=== PATIENT | female | born 1945 | race Hispanic/Latino ===

== ENCOUNTER → 2017-11-12 | Day surgery (SDC) | payer MEDICARE ==
[2017-11-11 12:20] LABS: BASOPHILS % 0.5 % (0.0-1.0); EOSINOPHILS # (AUTO) 0.2 (0.0-0.4); EOSINOPHILS % 2.3 % (0.0-6.0); HEMOGLOBIN 11.8 g/dL (12.0-16.0); LYMPHOCYTES # (AUTO) 2.5 (1.0-3.2); LYMPHOCYTES % 32.3 % (18.0-39.1); MEAN CORPUSCULAR HEMOGLOBIN 34.4 pg (28-32); MEAN CORPUSCULAR HGB CONC 33.7 g/dL (31-35); MONOCYTES # (AUTO) 0.7 (0.2-0.8); MONOCYTES % 8.8 % (4.4-11.3); NEUTROPHILS # (AUTO) 4.3 (2.1-6.9); NEUTROPHILS % 55.8 % (38.7-80.0); PLATELET COUNT 210 x10e3/uL (140-360); RED BLOOD COUNT 3.43 x10e6/uL (3.6-5.1); RED CELL DISTRIBUTION WIDTH 12.4 % (11.7-14.4)
--- NOTE | 2017-11-11 12:46 | Diagnostic Imaging Report ---
PROCEDURE: Frontal and lateral views of the chest. COMPARISON: Chest xray 08/24/2010. INDICATIONS: pre-op FINDINGS: Lines/tubes: None. Lungs: The lungs are well inflated and clear. There is no evidence of pneumonia or pulmonary edema. Pleura: There is no pleural effusion or pneumothorax. Atherosclerotic calcifications in aorta. Heart and mediastinum: Anterior cervical fusion plate. The heart and the mediastinum are normal. Bones: No acute bony abnormality. IMPRESSION: No acute cardiopulmonary disease. Dictated by: Sonny Palomo M.D. on 11/11/2017 at 12:45 Electronically approved by: Sonny Palomo M.D. on 11/11/2017 at 12:45
[~2017-11-12] MED LIST: ACETAMINOPHEN 1000 MG/100 ML IV ONE; AMITRIPTYLINE H10 MG PO; BACTRIM DS TAB1 EACH PO; BUDESONIDE EC3 MG PO; BUPIVACAINE HCL 0.5% 10ML MPF VIAL INJ ONE; CEFAZOLIN SOD 1 GM VIAL ONE; CIPRO500 MG PO; CYMBALTA20 MG PO; DEXAMETHASONE SOD PHOS INJ 4 MG/ML VIAL ONE; FOLIC ACID1 MG PO; GABAPENTIN300 MG PO; HYDROXYCHLOROQ200 MG PO; IBUPROFEN PO; IBUPROFEN200 MG PO; LIDOCAINE HCL 2% LOCAL INJ 5 ML SDV VIAL INJ ONE; METRONIDAZOLE500 MG PO; MUCINEX PO; NEVANAC3 ML OP; OMEPRAZOLE40 MG; OMEPRAZOLE40 MG PO; ONDANSETRON HCL INJ 2 MG/ML VIAL ONE; OXYBUTYNIN CHLOR5 MG PO; PENTOXIFYLLINE400 MG PO; PREDNISOLO15 MG/5 ML PO; PROPOFOL IV EMULSION 10 MG/ML 20 ML VIAL ONE; SEVOFLURANE INHAL SOLN 250 ML PEN BTL ONE; TRAMADOL-ACETAMI1 EA PO
--- OUTSIDE RECORDS SUMMARY | 2017-11-12 07:19 | XMS REPORT ---
Author Author [facility] Address Unknown Phone Unavailable Care Team Providers Care Transportation Agent Name Role Phone WILBER RAMOS Unavailable Unavailable HAMPEL, CHASE Unavailable Unavailable Problems This patient has no known problems. Allergies, Adverse Reactions, Alerts This patient has no known allergies or adverse reactions. Medications This patient has no known medications. Results Test Description Test Time Test Comments Text Results Atomic Results Result Comments CHEST 2 VIEWS [place] [address] Patient Name: RONAK BAILON MR #: [id number] : 1945 Age/Sex: 72/F Req # : [id number] Adm Physician: Ordered by: WILBER RAMOS MD Report #: [id number] Location: OR Room/Bed: Procedure: [id number] DX/CHEST 2 VIEWS Exam Date: 11/11/17 Exam Time: 1215 REPORT STATUS: Signed PROCEDURE: Frontal and lateral views of the chest. COMPARISON: Chest xray 08/24/2010. INDICATIONS: pre-op FINDINGS: Lines/tubes: None. Lungs: The lungs are well inflated and clear. There is no evidence of pneumonia or pulmonary edema. Pleura: There is no pleural effusion or pneumothorax. Atherosclerotic calcifications in aorta. Heart and mediastinum: Anterior cervical fusion plate. The heart and the mediastinum are normal. Bones: No acute bony abnormality. IMPRESSION: No acute cardiopulmonary disease. Dictated by: Mercedez Palomo M.D. on 11/11/2017 at 12:45 Electronically approved by: Mercedez Palomo M.D. on 11/11/2017 at 12:45 Dictated By: MERCEDEZ PALOMO MD 44 Transcribed By: CHASE on 11/11/17 1245 COPY TO: WILBER RAMOS MD RENAL SCAN W/LASIX [place] [address] Patient Name: RONAK BAILON MR #: [id number] : 1945 Age/Sex: 71/F Req #: [id number] Adm Physician: Ordered by: CHASE GIBBONS MD Report #: [id number] Location: [place] Room/Bed: Procedure: [id number] NM/RENAL SCAN W/LASIX Exam Date: 06/14/17 Exam Time: 1555 REPORT STATUS: Signed Renal Scan with Lasix [place] Clinical information: 71 F with interstitial cystitis Technique: Following intravenous administration of 9.7 mCi of Tc-99m MAG3, dynamic images of the kidneys in the posterior projection were obtained through 40 minutes. Lasix 40 mg was administered intravenously at 10 minutes post injection of the tracer. Report: Left kidney: Perfusion of the left kidney is prompt. The kidney has a reniform shape although is decreased in size. The renal cortex is not thinned. Extraction of tracer from the blood pool is decreased. Clearance of tracer from the renal parenchyma begins promptly but is not complete by the end of the study. The pelvicalyceal system is not dilated. Physiologic pooling of tracer within the pelvicalyceal system is seen. Drainage of tracer from the pelvicalyceal system is prompt and adequate prior to administration of Lasix. No significant stasis of tracer is seen within the left ureter. Right kidney: Perfusion of the right kidney is prompt. The kidney has a reniform shape although is decreased in size. The renal cortex is not thinned. Extraction of tracer from the blood pool is decreased. Clearance of tracer from the renal parenchyma begins promptly but is not complete by the end of the study. The pelvicalyceal system is not dilated. Physiologic pooling of tracer within the pelvicalyceal system is seen. Drainage of tracer from the pelvicalyceal system is prompt and adequate prior to administration of Lasix. No significant stasis of tracer is seen within the right ureter. Differential renal function: The left kidney contributes 51% of total renal function and the right kidney contributes 49% (normal 43-57%). Impression: Scan evidence of medical renal disease in both kidneys although may be normal for patient's age. No hydronephrosis or physiologically significant obstruction of either kidney. The differential renal function is preserved. Signed by: Dr. Narayan Holt M.D. on 06/14/2017 8:45 PM Dictated By: NARAYAN HOLT MD 44 Transcribed By: ABHISHEK on 06/14/172044 COPY TO: CHASE GIBBONS MD CT ABDOMEN/PELVIS WOW [place] [address] Patient Name: RONAK BAILON MR #: [id number] : 1945 Age/Sex: 71/F Req #: [id number] Adm Physician: Ordered by: CHASE GIBBONS MD Report #: [id number] Location: CT Room/Bed: Procedure: CT/CT ABDOMEN/PELVIS WOW Exam Date: 04/23/17 Exam Time: 929 REPORT STATUS: Signed PROCEDURE: CT ABDOMEN T PELVIS W/WO CONTRAST TECHNIQUE: The abdomen and pelvis were scanned utilizing a multidetector helical scanner from the diaphragm to the lesser trochanter before and after the IV administration of 100 cc Isovue 370 and the oral administration of water. Imaging was performed per CT urogram protocol. Coronal and sagittal multiplanar reformations were obtained. COMPARISON: CT abdomen and pelvis with contrast 05/09/2016. INDICATIONS: GROSS HEMATURIA FINDINGS: LOWER THORAX: Mild bilateral lower lobe bronchiectasis, likely postinfectious.. HEPATOBILIARY: No focal hepatic lesions. No biliary ductal dilatation. SPLEEN: No splenomegaly. PANCREAS: No focal masses or ductal dilatation. ADRENALS: No adrenal nodules. KIDNEYS/URETERS: Subcentimeter hypoattenuating lesion in the upper pole of the right kidney, too small to further characterize but likely represent a small cyst. Bilateral extrarenal pelves. Precontrast images show no calculi within the upper collecting systems, ureters, or urinary bladder. Additional subcentimeter hypoattenuating lesions within the lower poles of both kidneys, also too small to further characterize though likely to represent small cysts. Excretory phase images show no filling defects within the upper collecting systems, ureters, or urinary bladder. PELVIC ORGANS/BLADDER: The uterus is neutral in position and appears normal. 1.8 cm left ovarian cystic structure has average internal attenuation 19 Hounsfield units. No additional adnexal mass. PERITONEUM / RETROPERITONEUM : No free air or fluid. LYMPH NODES: No pelvic sidewall, retroperitoneal, or mesenteric lymphadenopathy. VESSELS: There is atherosclerotic calcification of the abdominal aorta, major branch vessels, and iliac arterial systems without aneurysmal dilatation. The portal vein, splenic vein , and central superior mesenteric vein are patent. GI TRACT: Radiopaque suture material along the lower rectum. The large bowel otherwise shows no evidence of distention or wall thickening. The appendix is not definitively identified. No right lower quadrant inflammatory change. The stomach is collapsed and poorly evaluated. There is no small bowel dilatation to suggest obstruction. BONES AND SOFT TISSUES: Multiple dystrophic soft tissue calcifications within the subcutaneous fat of the gluteal regions. No osseous destructive lesions. Partial fusion of the left sacroiliac joint. Advanced multilevel degenerative disc disease of the lumbar spine. IMPRESSION: No urolithiasis or filling defects within the upper collecting systems, ureters, or urinary bladder to explain the reported history of hematuria. Subcentimeter hypoattenuating bilateral renal lesions are too small to further characterize though likely represent small cysts. Left ovarian cystic lesion should be further evaluated by pelvic ultrasound in a patient of this age. Atherosclerotic vascular disease. Dictated by: Wilber Arango M.D. on 04/23/2017 at 13:58 Electronically approved by: Wilber Arango M.D. on 04/23/2017 at 13:58 Dictated By: WILBER ARANGO MD [id number] Transcribed By: CHASE on 04/23/17 1358 COPY TO: CHASE GIBBONS MD
--- NOTE | 2017-11-12 08:24 | Operative Report ---
DATE OF PROCEDURE: November 12, 2017 NEURO OPHTHALMOLOGIST: James Sargent PA-C The patient was brought to the operating room for induction of anesthesia. Throughout this case, my PA's assistance was necessary for retraction of soft tissue and positioning of the extremity. This allows for efficient and technically successful execution of the operation and is considered medically necessary. PREOPERATIVE DIAGNOSIS: Right 3rd trigger finger. POSTOPERATIVE DIAGNOSIS: Right 3rd trigger finger. PROCEDURE: Release of right 3rd trigger finger. INDICATIONS: The patient is a 72-year-old lady who complains of severe discomfort and snapping in her right 3rd finger. She has been treated by an outside physicians with conservative management. She presented to my office wanting to schedule definitive intervention. The risks and benefits of a trigger finger release have been explained. She states she understands and wishes to proceed. DESCRIPTION OF PROCEDURE: The patient was brought to the operating room and placed under a light general anesthetic. Her right upper extremity was prepped and draped in a sterile manner. A preoperative time out was performed. The extremity was exsanguinated and a proximal tourniquet was briefly inflated to 250 mmHg. A transverse incision was made in line with the distal palmar crease. The A1 jennifer was carefully exposed and released completely. The tendon was retracted from the wound and noted to have no further evidence of stenosing tenosynovitis. The wound was irrigated and closed with interrupted nylon stitches. A sterile bandage was applied. The patient was extubated and transported to the recovery room in stable condition. There was no blood loss. All needle and sponge counts were correct. Job#: [id number] SARAH
== END | disposition home or self-care (01) ==
LOC: OR 07:16
PROVIDERS: ATTEND Specialist
DX: M65.331 Trigger finger, right middle finger (principal); Z01.810 Encounter for preprocedural cardiovascular examination; Z01.812 Encounter for preprocedural laboratory examination; Z01.818 Encounter for other preprocedural examination
CPT/HCPCS: 26055; 36415; 71046; 85025; 93005; J0690; J1100; J2001; J2405

== ENCOUNTER → 2019-05-28 | Day surgery (SDC) | payer MEDICARE ==
[2019-05-25 13:50] LABS: BASOPHILS % 0.6 % (0.0-1.0); EOSINOPHILS # (AUTO) 0.2 (0.0-0.4); EOSINOPHILS % 3.2 % (0.0-6.0); HEMATOCRIT 34.7 % (34.2-44.1); HEMOGLOBIN 11.5 g/dL (12.0-16.0); LYMPHOCYTES # (AUTO) 1.8 (1.0-3.2); LYMPHOCYTES % 28.2 % (18.0-39.1); MEAN CORPUSCULAR HEMOGLOBIN 33.3 pg (28-32); MEAN CORPUSCULAR HGB CONC 33.1 g/dL (31-35); MEAN CORPUSCULAR VOLUME 100.6 fL (81-99); MONOCYTES # (AUTO) 0.7 (0.2-0.8); NEUTROPHILS # (AUTO) 3.8 (2.1-6.9); NEUTROPHILS % 57.7 % (38.7-80.0); PLATELET COUNT 236 x10e3/uL (140-360); RED BLOOD COUNT 3.45 x10e6/uL (3.6-5.1)
[~2019-05-28] MED LIST changes: -ACETAMINOPHEN 1000 MG/100 ML IV ONE; -BUPIVACAINE HCL 0.5% 10ML MPF VIAL INJ ONE; -CEFAZOLIN SOD 1 GM VIAL ONE; +CELEBREX100 MG PO; +CYMBALTA30 MG PO; -DEXAMETHASONE SOD PHOS INJ 4 MG/ML VIAL ONE; +LEFLUNOMIDE10 MG PO; -LIDOCAINE HCL 2% LOCAL INJ 5 ML SDV VIAL INJ ONE; +MULTIVITAMINS1 EAC7 PO; -ONDANSETRON HCL INJ 2 MG/ML VIAL ONE; -PROPOFOL IV EMULSION 10 MG/ML 20 ML VIAL ONE; +PROPOFOL IV EMULSION 10 MG/ML 50 ML VIAL ONE; -SEVOFLURANE INHAL SOLN 250 ML PEN BTL ONE; +VITAMIN B12 PO; +[UNRECOGNIZED DRUG - OTHER] PO
[2019-05-28 07:55] VITALS: BP 134/66
== END | disposition home or self-care (01) ==
LOC: OR 05:12
PROVIDERS: ATTEND Internal Medicine Gastroenterology
DX: Z12.11 Encounter for screening for malignant neoplasm of colon (principal); K64.8 Other hemorrhoids; K21.9 Gastro-esophageal reflux disease without esophagitis; R06.02 Shortness of breath; R00.1 Bradycardia, unspecified; F32.9 Major depressive disorder, single episode, unspecified; Z01.810 Encounter for preprocedural cardiovascular examination; Z01.812 Encounter for preprocedural laboratory examination
CPT/HCPCS: 36415; 45380; 85025; 88305; 93005; J2704; 45378

== ENCOUNTER → 2019-10-12 | Outpatient (CLI) | payer MEDICARE ==
[~2019-10-12] MED LIST changes: -PROPOFOL IV EMULSION 10 MG/ML 50 ML VIAL ONE
== END ==
LOC: MAMMO 14:39
PROVIDERS: ATTEND Internal Medicine
DX: Z12.31 Encounter for screening mammogram for malignant neoplasm of breast (principal)
CPT/HCPCS: 77067

== ENCOUNTER 2020-05-05 09:58 | Inpatient (IN) | payer MEDICARE ==
[~2020-05-05] VITALS: Ht 154.9 cm; Wt 55.8 kg
[2020-05-05] MEDS ORDERED: AZITHROMYCIN 500MG/NS 250 ML 250 ML IV STA (10:10)
[2020-05-05] MEDS ORDERED: CEFTRIAXONE SOD 1 GM/NS 50 ML 50 ML IV ONE (10:15)
--- NOTE | 2020-05-05 10:25 | Emergency Department Note ---
History of Present Illnes History of Present Illness Chief Complaint: General Medicine Complaints History of Present Illness This is a 74 year old female arrived to the ED with complaints of dizziness weakness generalized malaise over the last week. Chief Complaint Comment PATIENT IN FROM HOME WITH COMPLAINTS OF DIZZINESS AND WEAKNESS STARTING LAST WEEK; PATIENT STATES THAT SHE SAW HER PRIMARY CARE PHYSICIAN LAST WEEK AND WAS GIVEN ABX FOR A UTI. PATIENT ALSO WITH A DENTAL INFECTION THAT SHE STARTED ON ANTIBIOTICS FOR 3 DAYS AGO. PATIENT APEARS IN NO DISTRESS, DENIES PAIN AT THIS TIME Historian: Patient Arrival Mode: Car Onset (how long ago): day(s) Duration (how long): day(s) Timing of current episode: constant Progression: worsening Chronicity: new Context: Reports recent illness Past Medical/Family History Physician Review I have reviewed the patient's past medical and family history. Any updates have been documented here. Past Medical History Recent Fever: No Clinical Suspicion of Infectio: No New/Unexplained Change in Ment: No Past Medical History: None Other Surgery: CARPAL TUNNEL REPAIR ON LT HAND HEMMOROID REMOVAL Other Last Tetanus: UTD Review of Systems Review of Systems Constitutional: Reports as per HPI, Reports malaise, Reports weakness EENTM: Reports no symptoms Cardiovascular: Reports no symptoms Respiratory: Reports no symptoms Gastrointestinal: Reports no symptoms Genitourinary: Reports no symptoms Musculoskeletal: Reports as per HPI Integumentary: Reports no symptoms Neurological: Reports no symptoms Psychological: Reports no symptoms Endocrine: Reports no symptoms Hematological/Lymphatic: Reports no symptoms Physical Exam Related Data Allergies: Coded Allergies: No Known Drug Allergies (Verified Allergy, Unknown, 08/31/15) Triage Vital Signs Vital Signs Date Time Temp Pulse Resp B/P (MAP) Pulse Ox O2 Delivery O2 Flow Rate FiO2 05/05/20 10:06 98.8 60 20 105/65 100 Room Air Vital signs reviewed: Yes Physical Exam CONSTITUTIONAL Constitutional: Present well-developed, Present well-nourished HENT HENT: Present normocephalic, Present atraumatic, Present oropharynx clear/moist, Present nose normal HENT L/R: Present left ext ear normal, Present right ext ear normal EYES Eyes: Reports PERRL, Reports conjunctivae normal NECK Neck: Present ROM normal PULMONARY Pulmonary: Present effort normal, Present breath sounds normal CARDIOVASCULAR Cardiovascular: Present regular rhythm, Present heart sounds normal, Present capillary refill normal, Present normal rate GASTROINTESTINAL Abdominal: Present soft, Present nontender, Present bowel sounds normal GENITOURINARY Genitourinary: Present exam deferred SKIN Skin: Present warm, Present dry MUSCULOSKELETAL Musculoskeletal: Present ROM normal NEUROLOGICAL Neurological: Present alert, Present oriented x 3, Present no gross motor or sensory deficits PSYCHOLOGICAL Psychological: Present mood/affect normal, Present judgement normal Results Laboratory Lab results reviewed: Yes Imaging Imaging results reviewed: Yes Assessment & Plan Medical Decision Making MDM 74-year-old female arrived to the ED generalized malaise weakness and dizziness. Patient admitted to the [facility] for further work-up and management. Assessment & Plan Final Impression: (1) Weakness (2) Chest pain Depart Disposition: ADMITTED Last Vital Signs Date Time Temp Pulse Resp B/P (MAP) Pulse Ox O2 Delivery O2 Flow Rate FiO2 05/05/20 10:06 98.8 60 20 105/65 100 Room Air Home Meds Reported Medications Multivitamin (MULTI-VITAMIN DAILY) 1 Each Tablet, 1 TAB PO DAILY 05/05/20 Acetaminophen/Codeine* (TYLENOL # 3*) 1 Ea Tab, 1 TAB PO q6-8hrs PRN for MODERATE PAIN (4-6) 05/05/20 Cefuroxime Axetil (CEFUROXIME) 500 Mg Tablet, 1 TAB PO BID 05/05/20 Amoxicillin (AMOXICILLIN) 250 Mg Capsule, 500 MG PO Q8H for dental work, #30 CAP 05/05/20 Tizanidine Hcl (TIZANIDINE HCL) 4 Mg Tablet, 4 MG PO HS, TAB 05/05/20 Discontinued Reported Medications [Peppermint Extract] No Conflict Check, 1 CAP PO DAILY 05/25/19 Multivitamin (MULTIVITAMINS) 1 Each Capsule, 1 CAP PO DAILY 05/25/19 [Vitamin B12] No Conflict Check, 500 MCG PO DAILY 05/25/19 Omeprazole (OMEPRAZOLE) 40 Mg Capsule.dr, 40 MG PO DAILY 05/25/19 Celecoxib* (CELEBREX*) 100 Mg Capsule, 200 MG PO Q12H, #30 CAP 05/25/19 Leflunomide (LEFLUNOMIDE) 10 Mg Tablet, 10 MG PO DAILY 05/25/19 Duloxetine Hcl (CYMBALTA) 30 Mg Capsule.dr, 30 MG PO DAILY, #30 CAP 05/25/19 Medications in the ED Ceftriaxone Sodium 50 ml @ 100 mls/hr ONCE ONCE IV ; Start 05/05/20 at 10:15; Stop 05/05/20 at 10:44 Azithromycin 250 ml @ 200 mls/hr NOW STAT IV ; Start 05/05/20 at 10:10; Stop 05/05/20 at 11:24 KOKI LEÓN, May 05, 2020 10:25
--- NOTE | 2020-05-05 11:03 | Diagnostic Imaging Report ---
EXAMINATION: CHEST SINGLE (PORTABLE) INDICATION: Shortness of breath, weakness COMPARISON: None FINDINGS: LINES/TUBES:None LUNGS:The lungs are well-inflated. No focal consolidation or pulmonary edema. PLEURA:No pleural effusion or pneumothorax. MEDIASTINUM:The cardiomediastinal silhouette appears normal in size and shape. BONES/SOFT TISSUES:No acute osseous injury. Partially visualized cervical spine fusion hardware. ABDOMEN:No free air under the diaphragm. IMPRESSION: No focal pneumonia or pulmonary edema. Signed by: Carri Gamboa MD on 05/05/2020 11:00 AM
[2020-05-05 11:41] LABS: BASOPHILS % 0.4 % (0.0-1.0); HEMATOCRIT 33.3 % (34.2-44.1); HEMOGLOBIN 10.8 g/dL (12.0-16.0); LYMPHOCYTES # (AUTO) 1.3 (1.0-3.2); MEAN CORPUSCULAR HEMOGLOBIN 32.8 pg (28-32); MEAN CORPUSCULAR HGB CONC 32.4 g/dL (31-35); MEAN CORPUSCULAR VOLUME 101.2 fL (81-99); MONOCYTES # (AUTO) 0.4 (0.2-0.8); MONOCYTES % 8.7 % (4.4-11.3); NEUTROPHILS # (AUTO) 3.1 (2.1-6.9); NEUTROPHILS % 64.7 % (38.7-80.0); PLATELET COUNT 184 x10e3/uL (140-360); RED BLOOD COUNT 3.29 x10e6/uL (3.6-5.1); RED CELL DISTRIBUTION WIDTH 13.2 % (11.7-14.4)
[2020-05-05 11:42] LABS: CLARITY,URINE CLEAR (CLEAR); COLOR,URINE YELLOW (YELLOW)
[2020-05-05 11:43] LABS: BILIRUBIN,URINE NEGATIVE (NEGATIVE); KETONES,URINE 2+ (NEGATIVE); LEUKOCYTE ESTERASE ,URINE NEGATIVE (NEGATIVE); NITRITE,URINE NEGATIVE (NEGATIVE); PROTEIN,URINE DIPSTICK NEGATIVE (NEGATIVE); URINE UROBILINOGEN 0.2 mg/dL (0.2 - 1)
[2020-05-05 11:52] LABS: BACTERIA,URINE FEW /HPF; EPITHELIAL CELLS,URINE RARE /LPF; HYALINE CASTS 0-1 (0-1); WBC,URINE (MAN) 0-5 /HPF (0-5)
[2020-05-05 11:53] LABS: MUCUS,URINE FEW (RARE)
[2020-05-05 12:00] LABS: ALANINE AMINOTRANSFERASE 10 IU/L (0-55); ALBUMIN 3.9 g/dL (3.5-5.0); ALBUMIN/GLOBULIN RATIO 1.3 (0.8-2.0); ALKALINE PHOSPHATASE 54 IU/L (40-150); ANION GAP 14.4 mmol/L (8-16); BLOOD UREA NITROGEN 17 mg/dL (7-26); BUN/CREATININE RATIO 20 (6-25); CALCIUM 8.6 mg/dL (8.4-10.2); CARBON DIOXIDE 23 mmol/L (22-29); CHLORIDE 104 mmol/L (98-107); CREATINE KINASE 41 IU/L (29-168); CREATININE, SERUM 0.83 mg/dL (0.57-1.11); EST GLOMERULAR FILTRATION RATE > 60 ML/MIN (60-); GLUCOSE 80 mg/dL (74-118); POTASSIUM 4.4 mmol/L (3.5-5.1); SODIUM 137 mmol/L (136-145)
[2020-05-05 12:04] LABS: B-TYPE NATRIURETIC PEPTIDE2 137.7 pg/mL (0-100)
[2020-05-05] MEDS ORDERED: ASPIRIN 81 MG CHEW TAB PO ONE (12:30)
--- NOTE | 2020-05-05 14:01 | NUR ---
Pt resting quietly, no distres noted.
[2020-05-05] MEDS ORDERED: CEFUROXIME500 MG PO (14:43)
[2020-05-05] MEDS ORDERED: TYLENOL # 31 EA PO (14:43)
[2020-05-05] MEDS ORDERED: TIZANIDINE HCL4 MG PO (14:43)
[2020-05-05] MEDS ORDERED: AMOXICILLIN250 MG PO (14:43)
[2020-05-05] MEDS ORDERED: MULTI-VITAMIN1 EACH PO (14:44)
[2020-05-05 14:53] VITALS: BP 145/64
[2020-05-05 15:44] VITALS: BP 145/64
[2020-05-05 18:58] LABS: CREATINE KINASE MB 0.8 ng/mL (0-5.0)
--- NOTE | 2020-05-05 19:04 | NUR ---
WALKING ROUNDS PERFORMED, RECEIVED PT LAYING SEMI FOWLERS IN BED, AAOX3, RR EVEN AND NON-LABORED, ON ROOM AIR. PT REPORTS 10/10 PAIN TO MOUTH. LEFT PT LAYING SEMI FOWLERS IN BED, BED IN LOW LOCKED POSITION, SIDE RAILS UPX2, CALL LIGHT AND PHONE WITHIN REACH.
--- NOTE | 2020-05-05 19:12 | NUR ---
SPOKE WITH MD ANTOINE CONCERNING PT REPORTS OF 10/10 PAIN TO MOUTH S/P DENTAL WORK 3 WEEKS AGO. NEW ORDERS RECEIVED FOR PAIN MEDICATION.
--- NOTE | 2020-05-05 19:20 | NUR ---
History of present illness 74-year--old female patient presented to emergency department complaining of dizziness, weakness and general malaise over the course of the last week. She was seen by her primary care physician and was given antibiotics for urinary tract infection. In addition she has been complaining of dental infection and was placed on antibiotics 3 days ago. The patient reports increased weakness. There is no history of abdominal pain, no nausea, no vomiting. No shortness of breath. No angina type symptoms. No urinary symptoms. Admitted for further evaluation and treatment. On arrival to the hospital blood pressure was 105/65, respiration 20, pulse 60, temperature 98.8. Lab data disclosed CBC: WBC 4.81, hemoglobin 10.8, platelet count 184,000 sodium 137, potassium 4.4, chloride 104, CO2 23, BUN 17, creatinine 0.83, glucose 80, liver function tests were normal. Chest x-ray demonstrated no focal pneumonia or pulmonary edema. Subsequently I was advised about COVID 19 Test being positive. Past medical history: There is no significant medical history. There is no diabetes, no hypertension, no coronary disease. No pulmonary problems. Family history: Noncontributory Social history: There is no history of tobacco or alcohol abuse. Allergies: No known drug allergies Review of system: Constitutional: Complaining of generalized weakness. HEENT: No headaches. Cardiovascular: Denies chest pain, palpitations, PND, swelling of the legs. Respiratory: No Cough, hemoptysis or SOB GI: Denies Nausea/V/D, hematemesis, melena. : Denies Hematuria, Dysuria, Frequency Musculoskeletal: Denies joint pain Neuro: No focal weakness Psych: No anxiety or depression. Skin: No rashes, Itching, Hives Exam:. Patient alert oriented person time place the patient was in no distress. Vital signs: On arrival blood pressure 105/65, respiration 20, pulse 60, temperature 98.8 HEENT: No gross abnormalities Neck: Supple no JVD Lungs: Clear to auscultation Heart: Regular rate and rhythm, no murmurs no gallops Abdomen: Soft non tender, no guarding. Extremities: No edema Neurologic: Alert oriented 3, no focal weakness. Psychiatrist: Normal mood, normal judgment. Skin: No rashes Lab data: CBC disclosed: Hemoglobin 10.8, WBC 4.81, platelet count 184,000. Chemistry profile revealed: Sodium 137, potassium 4. 4, chloride 104, CO2 23, BUN of 17, creatinine 0.83 Assessment: Dizziness Generalized weakness Recently treated UTI Positive Covid 19 Plan of care: Admitted the patient for observation Follow-up labs. Consult ID. Inflammatory markers
[2020-05-05] MEDS: TIZANIDINE HCL 4 MG TAB PO SCH (19:41)
[2020-05-05] MEDS: HYDROCODONE/APAP 5MG-325MG TAB PO PRN (19:42)
[2020-05-05 20:00] VITALS: BP 136/72
[2020-05-05 20:03] VITALS: BP 136/72
--- NOTE | 2020-05-05 23:15 | NUR ---
REPORT GIVEN TO Mahnaz WAN RN FOR CONTINUED CARE OF PATIENT. PT TO BE TRANSFERRED TO ROOM 296 AND PLACED ON DROPLET ISOLATION FOR COVID 19
--- NOTE | 2020-05-05 23:21 | NUR ---
NOTIFIED MD ANTOINE ABOUT POSITIVE TEST RESULTS FOR COVID 19. NO NEW ORDERS RECEIVED. TO COME TO SEE PT.
[2020-05-06] VITALS (8 sets, daily range): BP systolic 120–152; BP diastolic 56–69
--- NOTE | 2020-05-06 00:05 | NUR ---
PT TRANSFERRED BY WHEELCHAIR TO ROOM 296 FOR DROPLET PRECAUTIONS.
[2020-05-06 05:14] LABS: BASOPHILS % 0.2 % (0.0-1.0); EOSINOPHILS % 0.2 % (0.0-6.0); HEMATOCRIT 34.1 % (34.2-44.1); LYMPHOCYTES # (AUTO) 1.8 (1.0-3.2); LYMPHOCYTES % 42.4 % (18.0-39.1); MEAN CORPUSCULAR HEMOGLOBIN 32.2 pg (28-32); MEAN CORPUSCULAR HGB CONC 32.3 g/dL (31-35); MEAN CORPUSCULAR VOLUME 99.7 fL (81-99); MONOCYTES # (AUTO) 0.4 (0.2-0.8); MONOCYTES % 9.6 % (4.4-11.3); NEUTROPHILS % 47.4 % (38.7-80.0); PLATELET COUNT 212 x10e3/uL (140-360); RED BLOOD COUNT 3.42 x10e6/uL (3.6-5.1); RED CELL DISTRIBUTION WIDTH 12.9 % (11.7-14.4)
[2020-05-06 05:36] LABS: CREATINE KINASE MB 0.4 ng/mL (0-5.0)
[2020-05-06 05:37] LABS: ALANINE AMINOTRANSFERASE 8 IU/L (0-55); ALBUMIN 3.8 g/dL (3.5-5.0); ALBUMIN/GLOBULIN RATIO 1.3 (0.8-2.0); ALKALINE PHOSPHATASE 52 IU/L (40-150); ANION GAP 11.8 mmol/L (8-16); BLOOD UREA NITROGEN 13 mg/dL (7-26); BUN/CREATININE RATIO 16 (6-25); CALCIUM 8.3 mg/dL (8.4-10.2); CARBON DIOXIDE 26 mmol/L (22-29); CHLORIDE 103 mmol/L (98-107); CREATININE, SERUM 0.81 mg/dL (0.57-1.11); EST GLOMERULAR FILTRATION RATE > 60 ML/MIN (60-); GLUCOSE 82 mg/dL (74-118); POTASSIUM 4.8 mmol/L (3.5-5.1); SODIUM 136 mmol/L (136-145)
[2020-05-06 06:50] LABS: INR 0.93; PROTHROMBIN TIME 12.9 seconds (11.9-14.5)
--- NOTE | 2020-05-06 07:10 | NUR ---
PATIENT IS AWAKE, ALERT, AND IN STABLE CONDITION WITH NO S/S OF RESPIRATORY DISTRESS- PATIENT DENIES PAIN. TELEMETRY APPLIED. CALL LIGHT IS WITHIN REACH, PATIENT INSTRUCTED TO CALL FOR ASSISTANCE NEEDED.
[2020-05-06] MEDS: MULTIVITAMINS/MINERALS TAB PO SCH (08:10)
--- NOTE | 2020-05-06 08:40 | Diagnostic Imaging Report ---
EXAMINATION: CHEST SINGLE (PORTABLE) INDICATION: Pneumonia COMPARISON: Chest radiograph 05/05/2020 FINDINGS: LINES/TUBES:None LUNGS:The lungs are well-inflated. No focal consolidation or pulmonary edema. PLEURA:No pleural effusion or pneumothorax. MEDIASTINUM:The cardiomediastinal silhouette appears normal in size and shape. BONES/SOFT TISSUES:No acute osseous injury. ABDOMEN:No free air under the diaphragm. IMPRESSION: No focal pneumonia or pulmonary edema. Signed by: Carri Gamboa MD on 05/06/2020 8:37 AM
--- OUTSIDE RECORDS SUMMARY | 2020-05-06 10:21 | XMS REPORT | Continuity of Care Document ---
Author Author [facility] CV Ingenuity RONAK Jones [employer] Address Unknown Phone Unavailable Care Team Providers Care Corporate Accountant Name Role Phone [employer] Unavailable Un available Problems Problem Status Onset Date Classification Date Reported Comments Source Cervicalgia 09/02/2018 03/17/2019 [facility] [place] NECK PAIN Active 07/29/2018 [facility] [place] Mastodynia 07/05/2018 01/18/2019 [facility] [place] N64.4 - MASTODYNIA Active 06/13/2018 [facility] [place] Palmar fascial fibromatosis [Dupuytren] 05/02/2018 11/15/2018 [facility] [place] . Active 02/2018 [facility] [place] Radiculopathy, cervical region 12/02/2017 03/01/2018 [facility] [place] Dysphagia, oropharyngeal phase 10/08/2017 01/08/2018 [facility] [place] M54.12 CERVICAL RADICULAPATHY Active 09/17/2017 [facility] [place] VENOFER 200MG//CPT: J1745, 23990///DX: D Active 05/24/2017 [facility] J18.1 - "LOBAR PNEUMONIA, UNSPECIFIED O" Active 12/24/2016 [facility] [place] R53.1 - WEAKNESS Active 11/21/2016 [facility] [place] Z12.31 - ENCNTR SCREEN MAMMOGRAM FOR MA Active 08/21/2016 [facility] [place] R91.8 - OTHER NONSPECIFIC ABNORMAL FIN Active 07/11/2016 [facility] [place] M54.17 - "RADICULOPATHY, LUMBOSACRAL REG Active 06/28/2015 [facility] [place] 715.96 - OSTEOARTHROS NO Active 06/29/2014 [facility] [place] 599.70 - HEMATURIA NOS Active 10/29/2012 [facility] [place] 338 - PAIN NEC Active 08/22/2012 [facility] [place] Unspecified abdominal pain 01/08/2018 [facility] [place] Chest pain, unspecified 01/08/2018 [facility] [place] Gastro-esophageal reflux disease without esophagitis 01/08/2018 [facility] [place] Atherosclerosis of aorta 01/08/2018 [facility] [place] Muscle weakness (generalized) 03/01/2018 [facility] [place] Abnormal posture 03/17/2019 [facility] [place] Weakness 03/17/2019 [facility] [place] Neck pain Active Problem 02/27/2020 Haile Webber KATHYA positive Active Problem 02/27/2020 Haile WebberAmaya Stacy 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 Haile Webber Paresthesia Active Problem 02/27/2020 Haile Webber Trigger finger, right ring finger Active Problem 06/2020 aHile Webber Dysphagia, unspecified Active Problem 02/27/2020 Haile Webber Polyarthritis Active Problem 02/27/2020 Haile Webber Sicca syndrome Active Problem 02/27/2020 Haile Webber Trigger finger, right middle finger Active Problem 06/2020 Haile Webebr Sicca complex Active Diagnosis 11/14/2016 Amaya Najam Pain, joint, multiple sites Ac tive Diagnosis 0 11/14/2016 Amaya Najam Counseling NOS Active Diagnosis 11/14/2016 Amaya Najam Shoulder Impingement Syndrome Active Problem Amaya Najam Sicca syndrome Active Problem 11/14/2016 Amaya Najam Centromere antibody positive A ctive Diagnosis 0 11/14/2016 Amaya Najam Pain in joint, multiple sites Active Problem Amaya Najam Elevated KATHYA Active Problem 11/14/2016 Amaya Najam Scleroderma Active Problem 11/14/2016 Amaya Najam Hand pain, right Active Diagnosis 07/29/2018 Haile Llaneser manager terminal (current) use of non-steroidal anti-inflammatories (NSAID) Active Prob carly 02/27/2020 Haile Webber Dyspareunia Active 12/03/2012 [facility] RNA NECK/LEG PAIN Active [facility] Tawana Peck RAN LEG PAIN Active [facility] [place] LUMBAR RADICULOPATHY Active [facility] [place] Medications Medication Details Route Status Patient Instructions Ordering Provider Order Date Source Leflunomide 1 tablet Orally Active 10 MG Orally Once a day Horn 05/11/2019 Haile Webber Celecoxib 200 mg q 12 prn #60 one tablet orally Active 200 mg orally every 12 hours as needed for pain Horn 12/10/2018 Haile Webber Prednisone Taper 3 tablets for 5 days, 2 tablets for 5 days and then 1 tablet daily NA Active 5mg Michelle 07/21/2018 Haile Webber Methotrexate 4 tabs alotgether Orally Active 2.5mg Orally Once a week Michelle 06/12/2017 Haile Webber PredniSONE 1/2 tabs x 7days an d then stop Orally Active 10 MG Orally Michelle 06/12/2017 Haile Webber Gabapentin TAKE ONE CAPSULE BY MOUTH THREE TIMES DAILY NA Active 300 Michelle 1 Haile Webber Folic Acid 1 tablet Orally Active 1 MG Orally Once a day Michelle 06/12/2017 Haile Webber Hydroxychloroquine Sulfate 1.5 tablet with food or milk Orally Active 200 MG Orally Once a day You 04/08/2017 Haile Webber Meloxicam 1 tablet Orally Active 15 MG Orally Once a day prn with food Naja 10/25/2016 Amaya Najam Aquoral as directed Mouth/Throat Active Mouth/Throat 2 sprays every 6 hours Naja 10/25/2016 Amaya Najam Pilocarpine HCl 1 tablet Orally Active 5 mg Orally Three times a day Naja 04/06/2011 Amaya Najam Levothyroxine Sodium 1 tablet on an empty stomach in the morning Orally Active 50 MCG Orally Once a day Haile Webber Lyrica 1 capsule Orally Active 75 MG Orally Twice a da y Edwin Webber Famotidine 1 tablet Orally Active 40 MG Orally Once a day Haile Webber Gabapentin TAKE ONE CAPSULE BY MOUTH THREE TIMES DAILY NA Active 300 Haile Webber Vitamin B-12 2 tablets Orally Active 500 MCG Orally Once a d ay Haile Webber Montelukast Sodium 1 tablet Orally Active 10 MG Orally Once a day Haile Webber Meclizine HCl 1 tablet as need ed Orally Active 25 MG Orally Once a day Michelle Haile Webber Ibuprofen 1 tablet as needed Orally Active 200 MG Orally every 6 hrs Naja Amaya Najam Aquoral as directed Mouth/Throat Active Mouth/Throat 2 sprays every 6 hours Najam Amaya Najam Meloxicam 1 tablet Orally Active 15 MG Orally Once a day prn with food Najam Amaya Najam No Reported Medications (Acti ve) Active [facility] Allergies, Adverse Reactions, Alerts Substance Category Reaction Severity Reaction type Status Date Reported Comments Source N.K.D.A. Adverse Reaction Info Not Available Adverse Reaction 05/11/2019 Haile Webber No Known Drug Allergies drug a llergy drug aller gy Active [facility] Immunizations No Data Provided for This Section Results No Data Provided for This Section Pathology Reports No Data Provided for This Section Diagnostic Reports Report Value Date Source Breast Limited Ran US LIMITED ULTRASOUND OF BOTH BREASTS: 06/30/2018 CLINICAL: /N64.4 Mastodynia. COMPARISON:Comparison is made to exams dated: 06/30/2018 mammogram, 08/21/2016 mammogram - [facility], 09/12/2015 mammogram, and 04/06/2014 mammogram - [facility]. TECHNIQUE: Color flow and real-time ultrasound of both breasts were performed on the areas of interest. FINDINGS: No abnormalities were seen sonographically in either breast. The areas of palpable concern correspond to normal ridges of fibroglandular tissue, which may be more prominent given patient's weight loss. No sonographic correlate is identified for the patient's breast pain. IMPRESSION: BENIGN RECOMMENDATION:These results were discussed with the patient, who was instructed to return immediately if she notices any change in the physical exam. Follow up by clinical physical exam is recommended. Clinical management of the patient's pain is recommended. There is no sonographic evidence of malignancy. A 1 year screening mammogram is recommended.(07/01/2019) This exam was interpreted at [id number] for DEYVI Aguirre, SL 15. Professional services are provided by the [facility]. Jacob Rojas M.D., cm/sonia:06/30/2018 11:46:27 Senior Gl Accountant(s): Hanh Almeida [facility] [place] letter sent: BI-RADS 1/2 Ultrasound BI-RADS: 2 Benign 06/30/2018 DEYVI Aguirre Breast Mammo Diag RAN incl CAD MA BILATERAL DIGITAL DIAGNOSTIC MAMMOGRAM WITH CAD: 06/30/2018 CLINICAL: N64.4 Mastodynia/N64.4 Mastodynia. Current study was evaluated with a Computer Aided Detection (CAD) system. COMPARISON:Comparison is made to exams dated: 08/21/2016 mammogram - [facility], 09/12/2015 mammogram, and 04/06/2014 mammogram - [facility]. TECHNIQUE: Mammographic views were obtained using digital acquisition. Current study was also evaluated with a Computer Aided Detection (CAD) system. FINDINGS: The tissue of both breasts is heterogeneously dense, which could obscure detection of small masses. There are benign vascular calcifications in both breasts. No significant masses, calcifications, or other findings are seen in either breast. IMPRESSION: INCOMPLETE: NEEDS ADDITIONAL IMAGING EVALUATION RECOMMENDATION:There is no mammographic abnormality seen in either breast to correspond with the reported palpable abnormality; however, further workup with ultrasound is recommended. This exam was interpreted at [id number] for DEYVI Timothy, SL 15. Professional services are provided by the [facility]. Jacob Rojas M.D., cm/sonia:06/30/2018 11:24:49 Senior Gl Accountant(s): RT Ann(R)(M), [facility] Mammogram BI-RADS: 0 Indeterminate [facility]30/[facility] [place] Hand wo contrast MRI EXAMINATI ON: MRI of the right hand without contrast HISTORY: M72.0 Palmar fascial fibromatosis [Dupuytren] - M72.0 Palmar fascial fibromatosis [Dupuytren]; COMPARISON: Right hand radiographs 02/05/2018 TECHNIQUE: Multiplanar, multisequence magnetic resonance imaging of the right hand is performed with an extremity coil without contrast. FINDINGS: Soft tissue: There is moderate intermediate T2 signal along the transverse metacarpal ligaments. This may represent scarring from prior surgery. No evidence of scarring along the palmar aponeurosis. The flexor and extensor tendons are intact without evidence of significant tendinosis or tenosynovitis. Visualized musculature of the hand is unremarkable. Cartilage: There is no focal chondrosis or subchondral marrow edema. Bone: There is normal bone marrow signal intensity throughout the visualized hand and wrist. Specifically, there is no evidence of fracture, stress fracture, osteonecrosis, or osteomyelitis. IMPRESSION: 1. Mild thickening of the transverse met acarpal ligaments of the third MCP joint may represent grade 1/2 sprain or scarring from prior surgery. 04/28/2018 SHAVONNE Aguirre Hand 3 views DX EXAM: Hand 3 v iews DX HISTORY: - M79.641 Pain in right hand COMPARISON: None 3 views of the right hand. The bones are osteopenic. No fracture or evidence of erosive change. The joint spaces are maintained other than minimal IP joint narrowing. IMPRESSION: Osteopenia. 02/05/2018 SHAVONNE Aguirre Upper GI series DX Exam: Uppe r GI swallow exam Reason for Exam: Abdominal pain. Dysphagia. Comparison Exam: Ultrasound 10/02/2017 Discussion: Municipal Clerk view is unremarkable without evidence for dilated loops of bowel or abnormal air-fluid level patterns. Surrounding skeletal structures are unremarkable. Patient ingested barium and air crystals without incident. The esophagus is normal in appearance without evidence for mucosal irregularities or abnormal filling defects. No tertiary contraction waves or hiatal hernia. During the exam, there was evidence for mild gastroesophageal reflux. The stomach and proximal duodenum are unremarkable in appearance. Fluoro time 1 minute, 52 seconds. Total exam DLP = 776 mGy-cm. Impression: 1. Mild gastroesophageal reflux 10/02/2017 SHAVONNE Aguirre Abdomen complete US Exam: Abdo sae Ultrasound Reason for Exam: R10.9 Unspecified abdominal pain - Comparison Exam: Ultrasound 02/01/2015 Discussion: Multiple axial and sagittal images were obtained of the abdomen. The liver is of normal size and echogenicity. No focal hepatic masses identified. No intrahepatic or extrahepatic biliary duct dilation, with the common bile duct measuring 0.4 cm. 2 mm nonmobile echogenic focus seen within the gallbladder, most compatible with a gallbladder polyp. No gallbladder wall thickening or pericholecystic fluid. Sonographic Khan's sign is negative. The visualized portions of the pancreatic head and proximal body are within normal limits. The spleen is of normal echogenicity measuring 6.3 cm in length. The visualized portions of the IVC are unremarkable. Mild amount of scattered plaque seen within the abdominal aorta. No evidence seen for ascites. The right kidney measures 8.9 x 4.2 x 4.3 cm. It is of unremarkable echogenicity without evidence for focal masses, hydronephrosis, or shadowing renal calculi. The left kidney measures 8.3 x 5.2 x 4.2 cm. It is of unremarkable echogenicity without evidence for focal masses, hydronephrosis, or shadowing renal calculi. Impression: 1. 2 mm nonmobile echogenic focus seen within the gallbladder, most compatible with a gallbladder polyp. 10/02/2017 DEYVI Aguirre Chest 2 views DX Exam: Two-vie w chest x-ray Reason for Exam: - R07.9 Chest pain, unspecified; R13.12 Dysphagia, oropharyngeal phase Comparison Exam: X-ray 12/25/2016 Discussion: Cardiomediastinal silhouette is within normal limits. Both hemidiaphragms well visualized. No pulmonary edema or pleural effusions. No focal lung consolidations. Trachea is midline. No acute bony abnormalities. Impression: 1. No acute cardiopulmonary abnormaliti es. 10/02/2017 DEYVI Aguirre Spine cervical w/wo contrast MRI Spine cervical w/wo contrast MRI 05/31/2017 10:15 AM CDT TECHNIQUE: Multiplanar multisequence imaging of the cervical spine was performed without and with administration of intravenous gadolinium. COMPARISON: 07/22/2014 MRI exam. FINDINGS: The exam is limited by motion. C3-C6 ACDF changes are present. C1-C2: Unremarkable. C2-C3: Unremarkable. C3-C4: No central canal stenosis, improved since 2013. Significant left facet arthrosis with mild left foraminal stenosis. C4-C5: No evidence of central canal stenosis, improved since 2013. Severe right facet arthrosis again present with severe right foraminal stenosis. Mild left foraminal stenosis is present. C5-C6: Mild central canal stenosis with mild ligamenta flava redundancy. Moderate left and mild right foraminal stenosis. C6-C7: Minimal disc bulge with mild central canal stenosis. Moderate left facet arthrosis with moderate left foraminal stenosis. C7-T1: Unremarkable. No abnormal enhancement is identified. The cervical cord signal appears grossly unremarkable on this limited exam. IMPRESSION: 1. Significant improvement of the centra l canal stenosis since 2013. 2. C4-C5 severe right foraminal stenosis . C5-C6 and C6-C7 moderate left foraminal stenosis. 3. Exam otherwise limited by patient mot ion. 05/31/2017 DEYVI Aguirre Hand 3 views Bilateral DX Exam : Right and left hand x- rays, 3 views each Reason for Exam: R76.8 Other specified abnormal immunological findings in serum, M13.0 Polyarthritis, unspecified, M35.00 Sicca syndrome, unspecified, M54.2 Cervicalgia, R20.2 Paresthesia of skin Comparison Exam: None Discussion: Right: No acute bony abnormalities. Mild scattered osteoarthritis is seen within the interphalangeal joints. No suspicious osteoblastic or osteolytic lesions. Left: No acute bony abnormalities. Mild scattered osteoarthritis is seen within the interphalangeal joints. No suspicious osteoblastic or osteolytic lesions. Impression: 1. Mild scattered osteoarthritis is see n within the interphalangeal joints. 01/03/2017 SHAVONNE Vazqueza Chest 2 views DX Exam: Chest x -ray, one view Reason for Exam: J18.1 Lobar pneumonia, unspecified organism Comparison Exam: X-ray 11/21/2016 Discussion: Cardiac silhouette is within normal limits for size. Airspace opacification within the left lower lung has decreased significantly. No pleural effusion identified. No appreciable evidence seen for pneumothorax. No acute bony abnormalities. Impression: 1. Airspace opacification within the le ft lower lung has decreased significantly. 12/25/2016 [facility] [place] Chest 2 views DX EXAM: PA AND LATERAL CHEST X RAY DATE:11/21/2016 11:41 AM CDT . TECHNIQUE: PA and lateral views of chest COMPARISON: X-ray of 07/08/2016 FINDINGS: The lungs are hyperinflated. There is left lower lobe airspace disease. Costo phrenic sulci are sharp.. Heart size and mediastinal contours are normal. There is no acute bony abnormality. Cervical spine postoperative changes are noted. IMPRESSION: 1. Findings suggesting left lower lobe p neumonia. Follow-up to radiographic resolution recommended. 2. Hyperinflated lungs 11/21/2016 SHAVONNE Vazqueza Digital Mammo Screening Ran MA - DIGITAL MAMMO SCREENING RAN MA BILATERAL DIGITAL SCREENING MAMMOGRAM WITH CAD: 08/21/2016 CLINICAL: Z12.31 Encounter For Screening Mammogram For Malignant Neoplasm Of Breast. Current study was evaluated with a Computer Aided Detection (CAD) system. No prior exams were available for comparison. The tissue of both breasts is heterogeneously dense, which could obscure detection of small masses. There are benign vascular calcifications in both breasts. No significant masses, calcifications, or other findings are seen in either breast. IMPRESSION: BENIGN There is no mammographic evidence of malignancy. A 1 year screening mammogram is recommended. Professional services are provided by the [facility]. Jacob Rojas M.D., cm/sonia:09/03/2016 10:09:24 Senior Gl Accountant: Iraida RUSSELL)(Veronica), [facility] [place] This exam was dictated and interpreted by [id number] for DEYVI Khan, NANCY 15. letter sent: Normal exam Mammogram BI-RADS: 2 Benign 08/21/2016 DEYVI Aguirre Bone Density DXA [employer] MA - Bone Density DXA [employer] MA BONE DENSITY EVALUATION: 07/16/2016 CLINICAL DATA: Post menopausal. RISK FACTORS: . FINDINGS: Bone density evaluation was performed 07/16/2016 on the AP L2-L3 region of spine using a Hologic unit. The BMD average for the exam is 1.286 g/cm2. The T-score is 2.10 and the Z-score is 4.40. This matches the World Health Organization's criteria for normal bone density and places the patient within normal limits of fracture risk. An additional bone density evaluation was performed 07/16/2016 on the right femur neck using a Hologic unit. The BMD average for the exam is 0.655 g/cm2. The T-score is -1.70 and the Z-score is 0.10. This matches the World Health Organization's criteria for osteopenia and places the patient at a medium risk for fracture. An additional bone density evaluation was performed 07/16/2016 on the right hip using a Hologic unit. The BMD average for the exam is 0.819 g/cm2. The T-score is -1.00 and the Z-score is 0.60. This matches the World Health Organization's criteria for normal bone density and places the patient within normal limits of fracture risk. An additional bone density evaluation was performed 07/16/2016 on the left femur neck using a Hologic unit. The BMD average for the exam is 0.603 g/cm2. The T- score is -2.20 and the Z-score is -0.40. This matches the World Health Organization's criteria for osteopenia and places the patient at a medium risk for fracture. An additional bone density evaluation was performed 07/16/2016 on the left hip using a Hologic unit. The BMD average for the exam is 0.773 g/cm2. The T-score is -1.40 and the Z-score is 0.20. This matches the World Health Organization's criteria for osteopenia and places the patient at a medium risk for fracture. IMPRESSION: OSTEOPENIA Patient is at medium risk for fracture. Professional services are provided by the [facility]. This exam was dictated and interpreted by [id number] for NANCY Iyer 15. Jacob Rojas M.D., cm/pentarik:07/17/2016 11:08:39 Senior Gl Accountant: Randee Jones RT(R)(M), [facility] 07/16/2016 [facility] [place] Chest 2 views DX EXAM: 2 view(s) of the chest. CLINICAL HX: R91.8 Other nonspecific abnormal finding of lung field. . . COMPARISON: Chest x-ray: 02/01/2015. FINDINGS: Support apparatus: None. Cardiac silhouette: Unremarkable. Masha: Unremarkable. Lobar consolidation: Negative. Pleural effusion: Stable blunting of a unilateral posterior costophrenic angle which may represent pleural thickening or trace pleural effusion. Pneumothorax: Negative. Other: Stable hyperinflation with diaphragmatic flattening suggestive of emphysematous changes. Bones: Thoracic spine degenerative changes. Osteopenia. Other: None. IMPRESSION: 1. Stable unilateral pleural thickening or trace pleural effusion. 2. Likely emphysematous changes. 07/16/2016 SHAVONNE Aguirre Upper GI series DX UPPER GI EX AM CLINICAL HISTORY: Weight loss and abdominal pain. TECHNIQUE: Double contrast exam with barium and air. FLUOROSCOPY TIME: 4 seconds. FINDINGS: The precontrast KUB demonstrates a nonobstructive bowel gas pattern. The postcontrast images show no esophageal mucosal abnormality, hiatal hernia, or gastroesophageal reflux. The stomach is normal in configuration, contraction, and rugal pattern without evidence of peptic ulcer disease. Opacified small bowel is unremarkable. IMPRESSION: No significant abnormality. 02/01/2015 [facility] Abdomen complete US Exam: Abdo sae Ultrasound Reason for Exam: Abdominal pain. Weight loss. Comparison Exam: CT scan 11/06/2012 Discussion: Multiple axial and sagittal images were obtained of the abdomen. The liver is of normal size and echogenicity. No focal hepatic masses identified. No intrahepatic or extrahepatic biliary duct dilation, with the common bile duct measuring 0.3 cm. No gallstones or gallbladder sludge. No gallbladder wall thickening or pericholecystic fluid. Sonographic Khan's sign is negative. The visualized portions of the pancreatic head and proximal body are within normal limits. The spleen is of normal echogenicity measuring 5.4 cm in length. The visualized portions of the upper abdominal aorta and IVC are unremarkable for a small focal plaque seen within the abdominal aorta. This corresponds with CT scan series 2, image 26. No evidence seen for ascites. The right and left kidneys measure 8.8 cm and 2.5 cm respectively. They are of normal echogenicity without focal masses, hydronephrosis, or shadowing renal calculi. The previously described small cortical cyst within the right kidney cannot be distinctly seen on today's ultrasound exam. Impression: 1. No abnormal soft tissue masses seen within the abdomen on today's Abdominal Ultrasound. The gallbladder and biliary ductal system are unremarkable. 02/01/2015 [facility]AVONNE [place] Chest 2 views DX CHEST RADIOGR APHY CLINICAL HISTORY: Cough. COMPARISON IMAGING: None. FINDINGS: Two views of the chest were acquired and submitted for evaluation. No pleural fluid is identified. The contour of the cardiac silhouette is within normal limits. There is no significant pulmonary consolidation or nodularity. Bones are unremarkable. Degenerative changes of the right acromioclavicular joint noted. IMPRESSION: No significant abnormality. 02/01/2015 [facility] [place] Spine cervical wo contrast MRI MRI CERVICAL SPINE WITHOUT CONTRAST TECHNIQUE: Multiplanar multisequence imaging of the cervical spine was performed without administration of intravenous gadolinium. COMPARISON: No prior exam. FINDINGS: The exam is limited by motion. Multilevel disc desiccation is seen. C2-C3: Unremarkable. C3-C4: Prominent disc bulge is present measuring approximately 4 mm, with moderate central canal stenosis and mass effect on the cervical cord. Moderate left facet osteoarthritis is present with moderate to severe left foraminal stenosis. C4-C5: Grade 1 anterolisthesis is present with severe right facet osteoarthritis. There is mild central canal stenosis. Severe right foraminal stenosis is present. C5-C6: Grade 1 retrolisthesis is present with dorsal disc osteophyte complex measuring approximately 5 mm with moderate central canal stenosis and mass effect on the cervical cord. There is severe left foraminal stenosis due to left foraminal osteophytes and UVJ arthrosis. C6-C7: Grade 1 anterolisthesis is present with moderate left facet osteoarthritis. Mild central canal stenosis is present. There is mild left foraminal stenosis. C7-T1: Unremarkable. T3-T4 severe right facet osteoarthritis is seen with grade 1 anterolisthesis and severe right foraminal stenosis. The cervical cord signal is difficult to evaluate due to the significant patient motion. IMPRESSION: 1. Multilevel disc degenerative disease and spondylosis. 2. The exam is limited by motion. 3. Multilevel degenerative listhesis as above. 4. C3-C4 and C5-C6 moderate central james l stenosis with mass effect on the cervical cord. Assessment of the cervical cord is limited by the patient motion. 5. Multilevel severe foraminal stenosis. T3-T4 severe right foraminal stenosis also noted. 07/22/2014 SHAVONNE Aguirre Knee 1-2 Views Bilateral DX BI LATERAL KNEE SERIES CLINICAL HISTORY: Osteoarthritis. COMPARISON IMAGING: None. FINDINGS: Four views of the knees were submitted for interpretation. Bones appear demineralized. Joint spaces at the right knee appear maintained. Mild osteoarthritis is present on the left, most prominent in the medial compartment. These changes include loss of joint space, subchondral sclerosis, and tiny marginal osteophytes. There is no fracture, dislocation, obvious joint effusion or suspicious radiopaque foreign body. Soft tissues are unremarkable. IMPRESSION: Mild osteoarthritis at the left knee. 07/05/2014 SHAVONNE Aguirre Consultation Notes No Data Provided for This Section Discharge Summaries No Data Provided for This Section History and Physicals No Data Provided for This Section Vital Signs Vital Sign Value Date Comments Source Weight 119.3 05/11/2019 Haile Webber Height 62 0 05/11/2019 Haile Webber Temperature Oral (F) 98.3 F 05/11/2019 Ha[facility] Webber Heart Rate 56 05/11/2019 Haile Webber Diastolic (mm Hg) 50 05/11/2019 Haile Webber Systolic (mm Hg) 108 05/11/2019 Haile Webber Systolic (mm Hg) 100 12/15/2018 Haile Webber Temperature Oral (F) 98.5 F 12/15/2018 Haile Webber Heart Rate 60 12/15/2018 Haile Webber Diastolic (mm Hg) 60 12/15/2018 Haile Llaneser Weight 113.3 12/10/2018 Haile Webber Height 62 0 12/10/2018 Haile Webber Temperature Oral (F) 97.7 F 12/10/2018 Haile Webber Heart Rate 60 12/10/2018 Haile Webber Diastolic (mm Hg) 68 12/10/2018 Haile Webber Systolic (mm Hg) 112 12/10/2018 Haile Webber Weight 112 08/25/2018 Haile Webber Height 62 0 08/25/2018 Haile Webber Temperature Oral (F) 97.9 F 08/25/2018 Haile Webber Heart Rate 72 08/25/2018 Haile Webber Diastolic (mm Hg) 70 08/25/2018 Haile Webber Systolic (mm Hg) 128 08/25/2018 Haile Webber Weight 112.6 07/21/2018 Haile Webber Height 62 1 09/21/2017 Haile Webber Temperature Oral (F) 97.4 F 07/21/2018 Haile Webber Heart Rate 72 07/21/2018 Haile Webber Diastolic (mm Hg) 60 07/21/2018 Haile Webber Systolic (mm Hg) 118 07/21/2018 Haile Webber Weight 115 06/20/2017 Haile Webber Height 62 1 08/20/2016 Haile Webber Temperature Oral (F) 98.3 F 06/20/2017 Haile Webber Heart Rate 72 06/20/2017 Haile Webber Diastolic (mm Hg) 72 06/20/2017 Haile Webber Systolic (mm Hg) 110 06/20/2017 Haile Webber Weight 120 06/12/2017 Haile Webber Height 62 1 Haile Webber Temperature Oral (F) 96.9 F 06/12/2017 Haile Webber Heart Rate 70 06/12/2017 Haile Webber Diastolic (mm Hg) 78 06/12/2017 Haile Webber Systolic (mm Hg) 112 06/12/2017 Haile Webber Height 61 0 11/12/2016 Amaya Najam Diastolic (mm Hg) 60 11/12/2016 Amaya Najam Systolic (mm Hg) 101 11/12/2016 Amaya Najam Weight 102.8 11/12/2016 Amaya Najam Height 61 0 10/25/2016 Amaya Najam Diastolic (mm Hg) 62 10/25/2016 Amaya Najam Systolic (mm Hg) 110 10/25/2016 Amaya Najam Weight 108.6 10/25/2016 Amaya Stacy Encounters Location Location Details Encounter Type Encounter Number Reason For Visit Attending Provider ADM Date DC Date Status Source OD [id number] - PAIN NEC STEPHAN LAW 08/25/2012 08/25/2012 Active [facility] [place] [id number] 599.70 - HEMATURIA NOS MARIAH TOWNSEND 11/06/2012 11/06/2012 Active [facility] [place] AUDIT [id number] 12/02/2012 12/03/2012 [facility] [place] [facility] [id number] Chidi Jacintoth 07/05/2014 07/06/2014 [facility] [place] [facility] [place] [facility] [id number] Chidi Jacintoth 07/22/2014 07/23/2014 [facility] [place] [facility] [place] [facility] [id number] 04 Stephan Law 02/01/2015 02/02/2015 [facility] [place] [facility] [place] [facility] [id number] 06 Jose Phillips 07/16/2016 07/17/2016 [facility] [place] [facility] [place] [facility] [id number] 07 Jose Phillips 08/21/2016 08/22/2016 [facility] [place] pain all over body [id number] 10/26/1910/25/2016 Amaya Stacy [facility] [place] [facility] [id number] 08 Jose Phillips 11/21/2016 11/22/2016 [facility] [place] [facility] [place] [facility] [id number] 11 Farideh Martinez 01/03/2017 01/04/2017 [facility] [place] [facility] [place] [facility] [id number] 12 Matilde Burch 05/31/2017 06/01/2017 [facility] [place] [facility] [place] [facility] [id number] 13 Stephan Ramesh Ayestas 10/02/2017 10/03/2017 [facility] [place] [id number] DYANA PANDEY 8 11/24/2017 [facility] [place] [facility] [place] [facility] [id number] 14 Stephan Ramesh Ayestas 02/05/2018 02/06/2018 [facility] [place] [facility] [place] [facility] [id number] 15 Claribel Saturday04/28/2018 04/29/2018 [facility] [place] [facility] [place] [facility] [id number] 16 Stephan Ramesh Ayestas 06/30/2018 07/01/2018 [facility] [place] [facility] [id number] [place] 07/29/2018 08/28/2018 [facility] [place] Procedures No Data Provided for This Section Assessment and Plan No Data Provided for This Section Plan of Care Plan of Care Date Source Pap ThinPrep 11/26/2012 Routine 12/03/2012 [facility] Social History Social History Date Source No data available for this section 08/28/2018 [facility] [place] No data available for this section 07/01/2018 [facility] [place] Social History ElementQualifiersDate Rep orted IV Drug abuse yes. October 25, 2016 Smoking status: no. Are you a: Never Smoker October 25, 2016 alcohol yes. October 25, 2016 10/25/2016 Amaya Stacy Never A Smoker (Active) Never Drank Alcohol (Active) 12/03/2012 [facility] Family History No Data Provided for This Section Advance Directives Order Name Results Value Date Source Advance Directives Advance Dir ectives No Advance Directives available. 12/03/2012 [facility] Functional Status No Data Provided for This Section
--- OUTSIDE RECORDS SUMMARY | 2020-05-06 10:22 | XMS REPORT | Continuity of Care Document ---
Author Author [facility] t Organization [facility] Address [address] [place] [address] Phone Unavailable Care Team Providers Care Car Body Designer Name Role Phone Matthew BLOOM Attphys Unavailable ELIER GRESHAM Attphys Unavailable Destin Webber Attphys Gareth Sanders Attphys Saturday, Ana Sanford Attphys DYANA PANDEY Attphys Unavailable WILBER RAMOS Attphys Unavailable EDWIGE, CHASE Attphys Unavailable Christy Burch Attphys Farideh Martinez Attphys Janelle Phillips Attphys Ryan Cain Attphys Matthew BLOOM Admphys Unavailable Payers Payer Name Policy Type Policy Number Effective Date Expiration Date S ource Problems Condition Name Condition Details Condition Category Status Onset Date Resolution Date Last Treatment Date Treating Clinician Comments Source NECK PAIN NECK PAIN Active 07/29/2018 [facility] [place] Diagnosis Active 2018-07-29 08:00:00 2018-11-30 15:18:00 Omari Messina N64.4 - MASTODYNIA N64. 4 - MASTODYNIA Active 06/13/2018 [facility] [place] Diagnosis Active 2018-06-13 00:01:00 2018-11-28 16:24:00 [facility] S[facility]arth . Active 04/25/2018 [facility] [place] Diagnosis Active 2018-04-25 00:01:00 2018-11-28 16:24[facility]00 [facility] M54.12 CERVICAL RADICULAPATHY M54.12 CERVICAL RADICULAPATHY Active 09/17/2017 [facility] [place] Diagnosis Active 2017-09-17 08:00:00 2017-10-25 14:18:00 [facility] Siddharth VENOFER 200MG//CPT: J1745, 45031///DX: D VENOFER 200MG//CPT: J1745, 08214///DX: D Active 05/24/2017 [place] [facility] Active 2017-05-24 00:00:00 2017-08-25 15:25:00 [facility] J18.1 - "LOBAR PNEUMONIA, UNSPECIFIED O" J18.1 - "LOBAR PNEUMONIA, UNSPECIFIED O" Active 12/24/2016 [facility] [place] [facility] Active 2016-12-24 00:01:00 2016-12-24 09:01:00 [facility] R53.1 - WEAKNESS R53. 1 - WEAKNESS Active 11/21/2016 [facility] [place] [facility] Active 2016-11-21 00:01:00 2016-11-21 11:48:00 [facility] Sidd[address]arth Z12.31 - ENCNTR SCREEN MAMMOGRAM FOR MA Z12.31 - ENCNTR SCREEN MAMMOGRAM FOR MA Active 08/21/2016 [facility] [place] Diagnosis Active 2016-08-21 00:01:00 2016-08-21 08:25:00 [facility] R91.8 - OTHER NONSPECIFIC ABNORMAL FIN R91.8 - OTHER NONSPECIFIC ABNORMAL FIN Active 07/11/2016 [facility] [place] [facility] Active 2016-07-11 00:01:00 2016-07-16 09:12:00 [facility] M54.17 - "RADICULOPATHY, LUMBOSACRAL REG M54.17 - "RADICULOPATHY, LUMBOSACRAL REG Active 06/28/2015 [facility] [place] Diagnosis Active 2015-06-28 00:01:00 2015-08-12 15:52:00 [facility] 715.96 - OSTEOARTHROS NO 715. 96 - OSTEOARTHROS NO Active 06/29/2014 [facility] [place] Diagnosis Active 2014-06-29 00:01:00 2014-09-09 08:39:00 [facility] 599.70 - HEMATURIA NOS 599. 70 - HEMATURIA NOS Active 10/29/2012 [facility] [place] Diagnosis Active 2012-10-29 00:01:00 2013-01-08 10:40:00 [facility] 338 - PAIN NEC 338 - PAIN NEC Active 08/22/2012 [facility] [place] Diagnosis Active 2012-08-22 00:01:00 2012-09-08 13:05:00 [facility] Unspecified abdominal pain Uns pecified abdominal pain 01/08/2018 [facility] [place] Problem 2018-01-08 11:58:17 [facility] Chest pain, unspecified Ches t pain, unspecified 01/08/2018 [facility] [place] Problem 2018-01-08 11:58:17 [facility] Gastro-esophageal reflux disease without esophagitis Gastro-esophageal reflux disease without esophagitis 01/08/2018 [facility] [place] Problem 2018-01-08 11:58:17 Adalberto Messina Atherosclerosis of aorta Athe rosclerosis of aorta 01/08/2018 [facility] [place] Problem 2018-01-08 11:58:17 [facility] Muscle weakness (generalized) Muscle weakness (generalized) 03/01/2018 [facility] [place] Problem 2018-02 11:03:12 [facility] Abnormal posture Abno rmal posture 03/17/2019 [facility] [place] Problem 2019-03-17 11:40:58 [facility] Weakness Weak ness 03/17/2019 [facility] [place] Problem 2019-03-17 11:40:58 [facility] Neck pain Neck pain Active Problem 02/27/2020 Haile Webber Problem Active 2020-02-27 02:45:51 [facility] KATHYA positive KATHYA positive Active Problem 02/27/2020 Amaya Gomez Problem Active 2020-02-27 02:45:51 [facility] Inflammatory arthritis Infl ammatory arthritis Active Problem 02/27/2020 Haile Llaneser Problem Active 2020-02-27 02 :45:51 [facility] Paresthesia Pare sthesia Active Problem 02/27/2020 Haileaneudy Webber Problem Active 2020-02-27 02:45:51 Omari Stubbsann Trigger finger, right ring finger Trigger finger, right ring finger Active Problem 02/27/2020 Haileaneudy Webber Problem Active 2020-02-27 02:45:51 Om[facility] S[facility]arth Dysphagia, unspecified Dysp hagia, unspecified Active Problem 02/27/2020 Haileaneudy Webber Problem Active 2020-02-27 02 :45:51 Om[facility] S[facility]arth Polyarthritis Poly arthritis Active Problem 02/27/2020 Haile Webber Problem Active 2020-02-27 02:45:51 Omari Siddharth Sicca syndrome Sicc a syndrome Active Problem 02/27/2020 Haile Webber Problem Active 2020-02-27 02:45:51 [facility] Trigger finger, right middle finger Trigger finger, right middle finger Active Problem 02/27/2020 Haileaneudy Webber Problem Active 2020-02-27 02:45:51 [facility] [address] Pain, joint, multiple sites Pa in, joint, multiple sites Active Diagnosis 11/14/2016 Amaya Najam Diagnosis Active 2016-11-14 02:45:13 [facility] [address] Counseling NOS Coun seling NOS Active Diagnosis 11/14/2016 Amaya Najam Diagnosis Active 2016-11-14 02:45:13 Omari Messina Shoulder Impingement Syndrome Shoulder Impingement Syndrome Active Problem 11/14/2016 Amaya Najam Problem Active 2016-11-14 02:45:13 Omari Messina Sicca syndrome Sicc a syndrome Active Problem 11/14/2016 Amaya Najam Problem Active 2016-11-14 02:45:13 [facility] [address] Pain in joint, multiple sites Pain in joint, multiple sites Active Problem 11/14/2016 Amaya Najam Problem Active 2016-11-14 02:45:13 [facility] Elevated KATHYA Elev ated KATHYA Active Problem 11/14/2016 Amaya Najam Problem Active 2016-11-14 02:45:13 [facility] [place] Scleroderma Scle roderma Active Problem 11/14/2016 Amaya Najam Problem Active 2016-11-14 02:45:13 [facility] [place] Hand pain, right Hand pain, right Active Diagnosis 07/29/2018 Haile Webber Diagnosis Active 2018-07-29 03:46:37 [facility] terminologist (current) use of non-steroidal anti-inflamma tories (NSAID) correction (current) use of non-steroidal anti-inflammatories (NSAID) Active Problem 02/27/2020 Haile Webber Problem Active 2020-02-27 02:45:51 [facility] [address] Dyspareunia Dysp areunia Active 12/03/2012 [facility] Problem Active 2012-12-03 03:30:14 [facility] [address] PIERO NECK/LEG PAIN PIERO NECK/LEG PAIN Active [facility] [place] Diagnosis Active 2014-04-16 19:20:00 [facility] [place] PIERO LEG PAIN PIERO LEG PAIN Active [facility] [place] Diagnosis Active 2014-04-17 13:20:00 [facility] LUMBAR RADICULOPATHY LUMB AR RADICULOPATHY Active [facility] [place] Diagnosis Active 2014-05-14 12:31:00 Nh sergey Messina Mastodynia Mast odynia 07/05/2018 01/18/2019 [facility] [place] Problem 2018-07-05 05:42:49 2019-01-18 11:31:50 2019-01-18 11:31 :50 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 Radiculopathy, cervical region Radiculopathy, cervical region 12/02/2017 03/01/2018 [facility] [place] Problem 05-12-15 02:48:40 2018-03-01 11:03:12 2018-03-01 11:03:12 [facility] Dysphagia, oropharyngeal phase Dysphagia, oropharyngeal phase 10/08/2017 01/08/2018 [facility] [place] Problem 06-10-19 05:06:41 2018-01-08 11:58:17 2018-01-08 11:58:17 [facility] Allergies, Adverse Reactions, Alerts Allergy Name Allergy Type Status Severity Reaction(s) Onset Date Inacti ve Date Treating Clinician Comments Source N.K.Oseas.A. N.K.D.A. Active Info Not Available 2019-05-11 00:00:00 [facility] No Known Allergies DA Active U 2014-11-06 00:00:00 [facility] No Known Drug Allergies No Known Drug Allergies Active [facility] Social History Social Habit Start Date Stop Date Quantity Comments Source IVDrugabuse 2016-10-25 00:00:00 2016-10-25 00:00:00 [facility] Social History 2012-12-03 03:30:14 2012-12-03 03:30:14 [facility] Medications Ordered Medication Name Filled Medication Name Start Date Stop Da te Current Medication? Ordering Clinician Indication Dosage Frequency Signature (SIG) Comments Components Source Leflunomide 2019-05-11 00:00:00 Yes Sailaja Horn 1 tablet [facility] Levothyroxine Sodium 2018-12-25 02:47:08 Yes Farideh Rubio saf 1 tablet on an empty stomach in the morning [facility] [place] Lyrica 2018-12-25 02:47:08 Yes Farideh Rubiosaf 1 c apsule [facility] Famotidine 2018-12-25 02:47:08 Yes Herba Michelle 1 tablet [facility] Gabapentin 2018-12-25 02:47:08 Yes Farideh Rooneyf TAKE ONE CAPSULE BY MOUTH THREE TIMES DAILY [facility] Vitamin B-12 2018-12-25 02:47:08 Yes Farideh Rubiosaf 2 tablets [facility] Montelukast Sodium 2018-12-25 02:47:08 Yes Herba Michelle 1 tablet [facility] Meclizine HCl 2018-12-25 02:47:08 Yes Herba Michelle 1 tablet as needed [facility] Celecoxib 200 mg q 12 prn #60 2018-12-10 00:00:00 Yes Mi sty Horn one tablet [facility] Prednisone Taper 2018-07-21 00:00:00 Yes Farideh Rooneyf 3 tablets for 5 days, 2 tablets for 5 days and then 1 tablet daily [facility] Methotrexate 2017-06-12 00:00:00 Yes Farideh Martinez 4 tabs alotgether [facility] PredniSONE 2017-06-12 00:00:00 Yes Farideh Martinez 1/2 tabs x 7days and then stop [facility] Gabapentin 2017-06-12 00:00:00 Yes Farideh Martinez TAKE ONE CAPSULE BY MOUTH THREE TIMES DAILY [facility] Folic Acid 2017-06-12 00:00:00 Yes Wajeeha Michelle 1 tablet [facility] Hydroxychloroquine Sulfate 2017-04-08 00:00:00 Yes Lopezjanelle menezes Michelle 1.5 tablet with food or milk [facility] Ibuprofen 2016-11-14 02:45:13 Yes Amaya Najam 1 tablet as needed [facility] Aquoral 2016-11-14 02:45:13 Yes Amaya Najam as d irected [facility] Meloxicam 2016-11-14 02:45:13 Yes Amaya Najam 1 tablet [facility] Meloxicam 2016-10-25 00:00:00 Yes Amaya Najam 1 tablet [facility] Aquoral 2016-10-25 00:00:00 Yes Amaya Najam as d irected [facility] No Reported Medications 2012-12-03 03:30:14 Yes (Active) [facility] Pilocarpine HCl 2011-04-06 00:00:00 Yes Amaya Najam 1 tablet [facility] Vital Signs Vital Name Observation Time Observation Value Comments Source Weight 2019-05-11 15:30:00 [facility] Height 2019-05-11 15:30:00 [facility] Temperature Oral (F) 2019-05-11 15:30:00 98.3 F [facility] Heart Rate 2019-05-11 15:30:00 [facility] Diastolic (mm Hg) 2019-05-11 15:30:00 [facility] [place] Systolic (mm Hg) 2019-05-11 15:30:00 Adalberto rial [facility] Systolic (mm Hg) 2018-12-15 19:00:00 Adalberto rial [address] Temperature Oral (F) 2018-12-15 19:00:00 98.5 F [facility] Heart Rate 2018-12-15 19:00:00 [facility] [place] Diastolic (mm Hg) 2018-12-15 19:00:00 [facility] Weight 2018-12-10 14:00:00 [facility] Height 2018-12-10 14:00:00 [facility] [place] Temperature Oral (F) 2018-12-10 14:00:00 97.7 F [facility] Heart Rate 2018-12-10 14:00:00 [facility] Diastolic (mm Hg) 2018-12-10 14:00:00 [facility] Systolic (mm Hg) 2018-12-10 14:00:00 Adalberto rial [facility] Weight 2018-08-25 16:15:00 [facility] Height 2018-08-25 16:15:00 [facility] [place] Temperature Oral (F) 2018-08-25 16:15:00 97.9 F [facility] Heart Rate 2018-08-25 16:15:00 [facility] Diastolic (mm Hg) 2018-08-25 16:15:00 [facility] [place] Systolic (mm Hg) 2018-08-25 16:15:00 Adalberto rial [place] Weight 2018-07-21 19:45:00 [facility] [place] Height 2018-07-21 19:45:00 [facility] [place] Temperature Oral (F) 2018-07-21 19:45:00 97.4 F [facility] [place] Heart Rate 2018-07-21 19:45:00 [facility] Diastolic (mm Hg) 2018-07-21 19:45:00 [facility] Systolic (mm Hg) 2018-07-21 19:45:00 Adalberto rial [place] Weight 2017-06-20 16:45:00 [facility] Height 2017-06-20 16:45:00 [facility] [place] Temperature Oral (F) 2017-06-20 16:45:00 98.3 F [facility] [place] Heart Rate 2017-06-20 16:45:00 [facility] Diastolic (mm Hg) 2017-06-20 16:45:00 [facility] Systolic (mm Hg) 2017-06-20 16:45:00 Adalberto rial [facility] Weight 2017-06-12 16:30:00 [facility] [place] Height 2017-06-12 16:30:00 [facility] [place] Temperature Oral (F) 2017-06-12 16:30:00 96.9 F [facility] Heart Rate 2017-06-12 16:30:00 [facility] [place] Diastolic (mm Hg) 2017-06-12 16:30:00 [facility] [place] Systolic (mm Hg) 2017-06-12 16:30:00 Adalberto rial [facility] Height 2016-11-12 18:30:00 [facility] [place] Diastolic (mm Hg) 2016-11-12 18:30:00 [facility] Systolic (mm Hg) 2016-11-12 18:30:00 Adalberto cleopatra [place] Weight 2016-11-12 18:30:00 [facility] [place] Height 2016-10-25 16:00:00 [facility] Diastolic (mm Hg) 2016-10-25 16:00:00 [facility] Systolic (mm Hg) 2016-10-25 16:00:00 Adalberto cleopatra [place] Weight 2016-10-25 16:00:00 [facility] Procedures This patient has no known procedures. Plan of Care Planned Activity Planned Date Details Comments Source Future Scheduled Test 2012-12-03 03:30:14 Plan of Care [code = 1877 6-5] [facility] [place] Encounters Start Date/Time End Date/Time En[facility] ID Source 2019-05-11 10:30:00 2019-05-11 10:30:00 Outpatient El Webber MD [place] [id number] Haile Webber MD 2019-04-28 12:38:00 2019-04-28 12:38:00 Outpatient MD JAZMIN Funes MD [place] [id number] Haile Webber MD 2019-03-19 09:41:00 2019-03-19 09:41:00 Outpatient El Webber MD [place] [id number] Haile Webber MD 2018-12-15 14:00:00 2018-12-15 14:00:00 Outpatient El Webber MD [place] [id number] Haile Webber MD 2018-12-10 09:00:00 2018-12-10 09:00:00 Outpatient El Webber MD PA [id number] Haile Webber MD 2018-10-06 11:55:00 2018-10-06 11:55:00 Outpatient El Webber MD [place] [id number] Haile Webber MD 2018-07-29 09:26:00 2018-08-27 23:59:00 Outpatient El Webber [id number] 2018-08-25 10:15:00 2018-08-25 10:15:00 Outpatient El WU [id number] Haile Webber MD 2018-07-21 13:45:00 2018-07-21 13:45:00 Outpatient El WU [id number] Haile Webber MD 2018-07-14 14:55:00 2018-07-14 14:55:00 Outpatient El WU [id number] Haile Webber MD 2018-06-30 09:59:00 2018-06-30 23:59:00 Outpatient Dalton Sanders [facility] [id number] 2018-04-28 09:22:00 2018-04-28 23:59:00 Outpatient Saturday Claribel Perez [facility] M[facility] [id number] 2018-02-05 14:02:00 2018-02-05 23:59:00 Outpatient Dalton Sanders [facility] M[facility] [id number] 2017-10-25 14:18:00 2017-11-23 23:59:00 Outpatient KATHERIN DYANA SRINIVASANN [id number] 2017-10-02 08:18:00 2017-10-02 23:59:00 Outpatient Dalton Sanders [facility] M[facility] [id number] 2017-07-30 16:59:00 2017-07-30 16:59:00 Outpatient El Webber MD [place] [id number] Haile Webber MD 2017-07-30 16:51:00 2017-07-30 16:51:00 Outpatient El Webber MD [place] [id number] Haile Webber MD 2017-06-20 10:45:00 2017-06-20 10:45:00 Outpatient El Webber MD [place] [id number] Haile Webber MD 2017-06-12 11:30:00 2017-06-12 11:30:00 Outpatient El Webber MD PA [id number] Haile Webber MD 2017-05-31 08:21:00 2017-05-31 23:59:00 Outpatient Matilde Burchmel M[facility] M[facility] [id number] 2017-01-03 08:31:00 2017-01-03 23:59:00 Outpatient Diya Martinez [facility] M[facility] [id number] 2016-11-21 11:10:00 2016-11-21 23:59:00 Outpatient Jose Phillips [facility] M[facility] [id number] 2016-11-12 13:30:00 2016-11-12 13:30:00 Outpatient [facility] [id number] [facility] 2016-10-25 10:00:00 2016-10-25 10:00:00 [facility] [id number] 2016-08-21 08:16:00 2016-08-21 23:59:00 Outpatient Jose Phillips M[facility] M[facility]IP [id number] 2016-07-16 09:02:00 2016-07-16 23:59:00 Outpatient Jose Phillips M[facility]IP M[facility]IP [id number] 2015-02-01 08:31:00 2015-02-01 23:59:00 Outpatient Dalton Sanders MHIE MHIE [id number] 2014-07-22 09:31:00 2014-07-22 23:59:00 Outpatient Sissy Cain MHIE MHIE [id number] 2014-07-05 11:41:00 2014-07-05 23:59:00 Outpatient Sissy Cain MHIE MHIE [id number] 2012-12-02 22:30:14 2012-12-02 22:30:14 Outpatient BALJEET BALJEET [id number] Results Test Description Test Time Test Comments Results Result Comments Source CHEST SINGLE (PORTABLE) 2020-05-06 08:36:00 [place] [address] Patient Name: RONAK BAILON MR #: [id number] : 1945 Age/Sex: 74/F Req #: [id number] Adm Physician: DIOR BLOOM MD Ordered by: DIOR BLOOM MD Report #: [id number] Location: MED/SURG3 Room/Bed: [facility] Procedure: [id number] DX/CHEST SINGLE (PORTABLE) Exam Date: 05/06/20 Exam Time: 0616 REPORT STATUS: Signed EXAMINATION: CHEST SINGLE (PORTABLE) INDICATION: Pneumonia COMPARISON: Chest radiograph 05/05/2020 FINDINGS: LINES/TUBES:None LUNGS:The lungs are well-inflated. No focal consolidation or pulmonary edema. PLEURA:No pleural effusion or pneumothorax. MEDIASTINUM:The cardiomediastinal silhouette appears normal in size and shape. BONES/SOFT TISSUES:No acute osseous injury. ABDOMEN:No free air under the diaphragm. IMPRESSION: No focal pneumonia or pulmonary edema. Signed by: Deniz Allen MD on 05/06/2020 8:37 AM Dictated By: DENIZ ALLEN MD 6 Transcribed By: ABHISHEK on 05/06/20836 COPY TO: DIOR BLOOM MD CHEST SINGLE (PORTABLE) 2020-05-05 10:59:00 [place] [id number] [place] [address] Patient Name: RONAK BAILON MR #: [id number] : 1945 Age/Sex: 74/F Req #: [id number] Adm Physician: Ordered by: KOKI LEÓN DO Report #: [id number] Location: ER Room/Bed: Procedure: [id number] DX/CHEST SINGLE (PORTABLE) Exam Date: 05/05/20 Exam Time: 1035 REPORT STATUS: Signed EXAMINATION: CHEST SINGLE (PORTABLE) INDICATION: Shortness of breath, weakness COMPARISON: None FINDINGS: LINES/TUBES:None LUNGS:The lungs are well- inflated. No focal consolidation or pulmonary edema. PLEURA:No pleural eff usion or pneumothorax. MEDIASTINUM:The cardiomediastinal silhouette appears normal in size and shape. BONES/SOFT TISSUES:No acute osseous injury. Partially visualized cervical spine fusion hardware. ABDOMEN:No free air under the diaphragm. IMPRESSION: No focal pneumonia or pulmonary edema. Signed by: Deniz Allen MD on 05/05/2020 11:00 AM Dictated By: DENIZ ALLEN MD 1100 Transcribed By: ABHISHEK on 05/05/20 1100 COPY TO: KOKI LEÓN DO [facility] DIGITAL SCR BILAT 2019-10-12 15:44:00 [place] [address] Patient Name: RONAK BAILON MR #: [id number] : 1945 Age/Sex: 73/F Req #: [id number] Adm Physician: Ordered by: ELIER GRESHAM MD Report #: [id number] Location: MAMMO Room/Bed: Procedure: [id number] MG/MAMMOGRAPHY DIGITAL SCR BILAT Exam Date: 10/12/19 Exam Time: 1500 REPORT STATUS: Signed #[id number] - [id number] #BILATERAL DIGITAL SCREENING MAMMOGRAM WITH CAD: 10/12/2019 CLINICAL: Routine screening. No prior exams were available for comparison. The tissue of both breasts is heterogeneously dense. This may lower the sensitivity of mammography. Current study was also evaluated with a Computer Aided Detection (CAD) system. There are benign vascular calcifications in both breasts. No significant masses, calcifications, or other findings are seen in either breast. IMPRESSION: BENIGN There is no mammographic evidence of malignancy. A 1 year screening mammogram is recommended. The patient will be notified by letter of the results. DENIZ johnston/sonia:10/20/2019 11:35:19 Photographic Artist: Audrey RUSSELL)(Veronica), [facility] letter sent: Normal Exam Mammogram BI-RADS: 2 Benign Dictated By: DENIZ ALLEN MD 1135 Transcribed By: SONIA on 10/20/19 1135 COPY TO: ELIER GRESHAM MD - XR SINUSES 3 + V 2019-09-22 15:12:00 FAX: Elier Graham Jr [phone] [place]: O St: REG -- Name: RONAK BAILON [facility] : 1945 Age/S: 73/F [place] Unit #: [id number] Loc: [place] [address] Phys: Elier Gresham Jr, MD Acct: [id number] Dis Date: Status: REG CLI PHONE #: [phone] Exam Date: 09/22/2019 1223 FAX #: [phone] Reason: SINUSITIS,DYSPNEA EXAMS: CPT CODE: [id number] XR SINUSES 3 + V 04387 HISTORY: SINUSITIS,DYSPNEA TECHNIQUE: Four views of the paranasal sinuses. COMPARISON: Noncontrast CT scan of the brain November 05, 2016 FINDINGS: Frontal, ethmoid, and sphenoid sinuses are clear. There appears to be a small amount of fluid in the maxillary sinuses. Nasal septum is midline. Mastoid air cells are clear bilaterally. Regional osseous structures are intact. IMPRESSION: Small amount of fluid in the maxillary sinuses. Correlate clinically for sinusitis. Remaining paranasal sinuses are clear. Location: [facility] at 1512 Reported and signed by: Boni Carpenter MD CC: Elier Gresham Jr, MD Technologist : BRUNA FUENTES RT (R) Trnscrd Date/Time/By: 09/22/2019 (1511) : By: [email or web address] Orig Print D/T: S: 09/22/2019 (1514) PAGE 1 Signed Report - XR CHEST 2 V 2019-09-22 15:02:00 FAX: Elier Graham Jr [phone] [place]: O St: REG -- Name: RONAK BAILON [facility] : 1945 Age/S: 73/F [address] Unit #: [id number] Loc: [place] [address] Phys: Elier Gresham Jr, MD Acct: [id number] Dis Date: Status: REG CLI PHONE #: [phone] Exam Date: 09/22/2019 1217 FAX #: [phone] Reason: EXAMS: CPT CODE: [id number] XR CHEST 2 V [id number] REASON FOR EXAM: Dyspnea Exam Order Date: 09/22/2019 12:05 PM Ordering M.D.: Elier Gresham Jr, MD PROCEDURE: - XR CHEST 2 V COMPARISON: CT chest December 24, 2018 FINDINGS: The lungs are hyperinflated but clear. There is no pleural effusion or pneumothorax. Pulmonary vascularity is within normal limits. Cardiomediastinal silhouette is normal in size for technique. The mediastinal contours are within normal limits. There is hardware in the cervical spine using C6 with C7. Degenerative changes are present in the thoracic spine and in the acromioclavicular joints. The visualized upper abdomen is within normal limits. IMPRESSION: Hyperinflation of the lungs bilaterally may represent an air-trapping process. However the lungs are clear. Location: [facility] at 1502 Reported and signed by: Boni Carpenter MD CC: lEier Gresham Jr, MD Technologist: BRUNA FUENTES RT (R) Trnscrd Date/Time/By: 09/22/2019 (899) : By: [email or web address] Orig Print D/T: S: 09/22/2019 (4416) PAGE 1 Signed Report - XR HAND 3 + V BI 2019-09-14 12:48:00 FAX: Elier Graham Jr [phone] [place]: St: REG FAX: Jalil Michelle MD [phone] Name: RONAK BAILON [facility] [place] : 1945 Age/S: 73/F [address] [place] [address] Unit #: [id number] Loc: [place].[facility] [place] [address] Phys: Jalil Wyatt MD Acct: [id number] Dis Date: Status: REG RCR PHONE #: [phone] Exam Date: 09/14/2019 1145 FAX #: Reason: PIERO HAND PAIN EXAMS: CPT CODE: [id number] XR HAND 3 + [place] [id number] REASON FOR EXAM: PIERO HAND PAIN EXAM ORDER DATE: 09/14/2019 11:39 AM Ordering M.Tierney: Jalil Wyatt MD PROCEDURE: - XR HAND 3 + V BI Comparison:None FINDINGS: No evidence of fracture. There is narrowing of the interphalangeal joint spaces in both hands. Soft tissues are within normal limits IMPRESSION: Mild osteoarthrosis of both hands but no acute bony abnormality. Location: [facility] at 1248 Reported and signed by: Boni Carpenter MD CC: Elier Gresham Jr, MD; Jalil Wyatt MD Technologist: RT Ruby(Gregorio) Trnscrd Date/Time/By: 09/14/2019 (0021) : By: [email or web address] Orig Print D/T: S: 09/14/2019 (7523) PAGE 1 Signed Report - CT ABD PELVIS W/CONT 2018-12-24 10:02:00 Nam e: RONAK BAILON [facility] : 1945 Age/S: 73 / F [address] Unit #: [id number] Loc: [place] [address] Phys: Michael Rubalcava MD Acct: [id number] Dis Date: Status: ADM IN PHONE #: [phone] Exam Date: 12/24/2018 0977 FAX #: [phone] Reason: SOB/UTI/PAIN EXAMS: CPT CODE: [id number] CT ABD PELVIS W/CONT 32509 HISTORY: Shortness of breath. COMPARISON: CT chest from March 24, 2013. CT chest with contrast: Automated exposure control. Unremarkable aorta without aneurysm or dissection. Unremarkable visualized neck vasculature and SVC. No pulmonary embolism (not performed as PE protocol). Unremarkable thyroid glands. Esophageal wall is mildly thickened. No pathologic adenopathy cardiac silhouette is mildly enlarged without pericardial effusion. Subcutaneous tissues and the musculature are normal in appearance. No lytic or blastic lesions are noted within the bony skeleton. The lungs are clear of infiltrates or congestion. Small left effusion with subsegmental atelectasis. No bronchiectasis, honeycombing or fibrosis or endobronchial lesions. No parenchymal mass or nodules either. IMPRESSION: Small left effusion with subsegmental atelectasis without infiltrates, effusion or congestion. No pathologic adenopathy. No bronchiectasis, honeycombing or fibrosis or endobronchial lesions. CT abdomen with contrast: The liver is enhancing homogeneously without mass or lesions. Liver is measuring 16.5 cm in length. Portal vein and hepatic artery are patent. Gallbladder is without radiopaque stones. Unremarkable spleen. The stomach distends incompletely and the wall appears thickened spacing the antrum region. Correlate for gastritis. Pancreas is enhancing homogeneously. Unremarkable adrenals. Kidneys are free from hydroureteronephrosis. Homogeneous enhancement. Bilateral excretion. Subcentimeter low-attenuation lesion in the anterior right interpolar region is too small to characterize. No pathologic adenopathy. Well-opacified abdominal and pelvic PAGE 1 Signed Report (CONTINUED) Name: RONAK BAILON [facility] : 1945 Age/S: 73 / F [address] [facility] Unit #: [id number] Loc: [place] [address] Phys: Michael Rubalcava MD Acct: [id number] Dis Date: Status: ADM IN PHONE #: [phone] Exam Date: 12/24/2018 0925 F AX #: [phone] Reason: SOB/UTI/PAIN EXAMS: CPT CODE: [id number] CT ABD PELVIS W/CONT 23250 <Continued> vasculature with mild atherosclerotic change. No bowel obstruction or colitis or diverticulitis or enteritis. CT PELVIS: Appendix is normal at visible but no inflammatory changes. Pelvic bowel loops are unobstructed. Anastomotic sutures at the anorectal junction without obstruction or mass. Unremarkable urinary bladder. Patient is post hysterectomy. No pelvic pathologic adenopathy. No free fluid or free air or abscess. Subcutaneous tissues demonstrating small amount of air within the anterior left abdominal wall likely from previous injection. No drainable fluid collections are noted. No lytic or blastic lesions are noted within the bony skeleton. IMPRESSION: Appendix is not visible but no inflammation. No bowel obstruction or colitis or diverticulitis or enteritis. Anastomotic sutures at the anorectal junction without mass. No hydroureteronephrosis. Unremarkable urinary bladder. No pathologic adenopathy are free fluid or free air or abscess. at 1002 Reported and signed by: David Sweeney M.D. CC: Michael Rubalcava Technologist:Sherrie Herron RT(R)(CT) CTDI: DLP: Trnscb Date/Time: 12/24/2018 (1002) [email or web address] Orig Print D/T: S: 12/24/2018 (1005) PAGE 2 Signed Report - CT CHEST W/CONTRAST 2018-12-24 10:02:00 Name : RONAK BAILON [facility] : 1945 Age/S: 73 / F [address] [facility] Unit #: [id number] Loc: [place] [address] Phys: Michael Rubalcava MD Acct: [id number] Dis Date: Status: ADM IN PHONE #: [phone] Exam Date: 12/24/2018924 FAX #: [phone] Reason: SOB EXAMS: CPT CODE: [id number] CT CHEST W/CONTRAST 92233 HISTORY: Shortness of breath. COMPARISON: CT chest from March 24, 2013. CT chest with contrast: Automated exposure control. Unremarkable aorta without aneurysm or dissection. Unremarkable visualized neck vasculature and SVC. No pulmonary embolism (not performed as PE protocol). Unremarkable thyroid glands. Esophageal wall is mildly thickened. No pathologic adenopathy cardiac silhouette is mildly enlarged without pericardial effusion. Subcutaneous tissues and the musculature are normal in appearance. No lytic or blastic lesions are noted within the bony skeleton. The lungs are clear of infiltrates or congestion. Small left effusion with subsegmental atelectasis. No bronchiectasis, honeycombing or fibrosis or endobronchial lesions. No parenchymal mass or nodules either. IMPRESSION: Small left effusion with subsegmental atelectasis without infiltrates, effusion or congestion. No pathologic adenopathy. No bronchiectasis, honeycombing or fibrosis or endobronchial lesions. CT abdomen with contrast: The liver is enhancing homogeneously without mass or lesions. Liver is measuring 16.5 cm in length. Portal vein and hepatic artery are patent. Gallbladder is without radiopaque stones. Unremarkable spleen. The stomach distends incompletely and the wall appears thickened spacing the antrum region. Correlate for gastritis. Pancreas is enhancing homogeneously. Unremarkable adrenals. Kidneys are free from hydroureteronephrosis. Homogeneous enhancement. Bilateral excretion. Subcentimeter low-attenuation lesion in the anterior right interpolar region is too small to characterize. No pathologic adenopathy. Well-opacified abdominal and pelvic PAGE 1 Signed Report (CONTINUED) Name: RONAK BAILON [facility] : 1945 Age/S: 73 / F [address] [facility] Unit #: [id number] Loc: [place] [address] Phys: Michael Rubalcava MD Acct: [id number] Dis Date: Status: ADM IN PHONE #: [phone] Exam Date: 12/24/2018 0925 F AX #: [id number] Reason: SOB EXAMS: CPT CODE: [id number] CT CHEST W/CONTRAST 35982 <Continued> vasculature with mild atherosclerotic change. No bowel obstruction or colitis or diverticulitis or enteritis. CT PELVIS: Appendix is normal at visible but no inflammatory changes. Pelvic bowel loops are unobstructed. Anastomotic sutures at the anorectal junction without obstruction or mass. Unremarkable urinary bladder. Patient is post hysterectomy. No pelvic pathologic adenopathy. No free fluid or free air or abscess. Subcutaneous tissues demonstrating small amount of air within the anterior left abdominal wall likely from previous injection. No drainable fluid collections are noted. No lytic or blastic lesions are noted within the bony skeleton. IMPRESSION: Appendix is not visible but no inflammation. No bowel obstruction or colitis or diverticulitis or enteritis. Anastomotic sutures at the anorectal junction without mass. No hydroureteronephrosis. Unremarkable urinary bladder. No pathologic adenopathy are free fluid or free air or abscess. at 1002 Reported and signed by: David Sweeney M.D. CC: Michael Rubalcava Technologist:Sherrie Herron RT(R)(CT) CTDI: DLP: Trnscb Date/Time: 12/24/2018 (1002) [email or web address] Orig Print D/T: S: 12/24/2018 (1005) PAGE 2 Signed Report BASIC METABOLIC PANEL 2018-12-24 09:16:00 Test Item SODIUM (test code = NA) 142 mmol/L 136-145 N POTASSIUM (test code = K) 3.9 mmol/L 3.5-5.1 N CHLORIDE (test code = CL) 109.0 mmol/L 98-107 H CARBON DIOXIDE (test code = CO2) 25.0 mmol/L 21-32 N ANION GAP (test code = GAP) 11.9 10-20 N GLUCOSE (test code = GLU) 73 mg/dL 74-106 L BLOOD UREA NITROGEN (test code = BUN) 7 mg/dL 7-18 N GLOMERULAR FILTRATION RATE (test code = GFR) > 60 mL/min >=60 Estimated GFR by using Modified MDRD formula.Chronic kidney disease is defined as either kidney damageor GFR <60 mL/min/1.73 m2 for >3 months. CREATININE (test code = CREAT) 0.80 mg/dL 0.55-1.02 N Note change in reference range due to change in reagent. BUN/CREATININE RATIO (test code = BUN/CREA) 8.8 10-20 L CALCIUM (test code = CA) 8.5 mg/dL 8.5-10.1 N BASIC METABOLIC [id number] 08:56:00* Test Item Value Reference Range Interpretation Comments SODIUM (test code = NA) 142 mmol/L 136-145 N POTASSIUM (test code = K) 3.9 mmol/L 3.5-5.1 N CHLORIDE (test code = CL) 109.0 mmol/L 98-107 H CARBON DIOXIDE (test code = CO2) mmol/L 21-32 ANION GAP (test code = GAP) 10-20 GLUCOSE (test code = GLU) mg/dL 74-106 BLOOD UREA NITROGEN (test code = BUN) mg/dL 7-18 GLOMERULAR FILTRATION RATE (test code = GFR) mL/min >=60 CREATININE (test code = CREAT) mg/dL 0.55-1.02 BUN/CREATININE RATIO (test code = BUN/CREA) 10-20 CALCIUM (test code = CA) mg/dL 8.5-10.1 CBC W/AUTO [id number] 08:30:00* Test Item Value Reference Range Interpretation Comments WHITE BLOOD CELL (test code = WBC) 6.0 K/mm3 4.5-12.5 N RED BLOOD CELL (test code = RBC) 3.24 mill/mm3 3.7-5.2 L HEMOGLOBIN (test code = HGB) 10.8 gram/dL 11.5-15.5 L HEMATOCRIT (test code = HCT) 32.1 % 36.0-46.0 L MEAN CELL VOLUME (test code = MCV) 99.1 fL 80-98 H MEAN CELL HGB (test code = MCH) 33.3 picogram 27.0-33.0 H MEAN CELL HGB CONCETRATION (test code = MCHC) 33.6 gram/dL 33.0-36. 0 N RED CELL DISTRIBUTION WIDTH (test code = RDW) 12.2 % 11.6-16. 2 N RED CELL DISTRIBUTION WIDTH SD (test code = RDW-SD) 44.4 fL 37 .0-51.0 N PLATELET COUNT (test code = PLT) 225 K/mm3 150-450 N MEAN PLATELET VOLUME (test code = MPV) 10.9 fL 6.7-11.0 N NEUTROPHIL % (test code = NT%) 51.7 % 39.0-69.0 N IMMATURE GRANULOCYTE % (test code = IG%) 0.5 % 0.0-5.0 N LYMPHOCYTE % (test code = LY%) 28.0 % 25.0-55.0 N MONOCYTE % (test code = MO%) 14.6 % 0.0-10.0 H EOSINOPHIL % (test code = EO%) 4.5 % 0.0-5.0 N BASOPHIL % (test code = BA%) 0.7 % 0.0-1.0 N NUCLEATED RBC % (test code = NRBC%) 0.0 % 0-0 N NEUTROPHIL # (test code = NT#) 3.09 K/mm3 1.8-7.7 N IMMATURE GRANULOCYTE # (test code = IG#) 0.03 x10 3/uL 0-0.03 N LYMPHOCYTE # (test code = LY#) 1.67 K/mm3 1.0-5.0 N MONOCYTE # (test code = MO#) 0.87 K/mm3 0-0.8 H EOSINOPHIL # (test code = EO#) 0.27 K/mm3 0.0-0.5 N BASOPHIL # (test code = BA#) 0.04 K/mm3 0.0-0.2 N NUCLEATED RBC # (test code = NRBC#) 0.00 K/mm3 0.0-0.1 N MANUAL DIFF REQUIRED (test code = MDIFF) NO PROCALCITONIN (PCT)2018-12-21 08:38:00* Test Item Value Reference Range Interpretation Comments PROCALCITONIN (PCT) (test code = PROCAL) 8.42 ng/ml HH Concentration Interpretation (ng/mL) <0.51 Sepsis is not likely. Local bacterial infection is possible. (LOW RISK for progression to Sepsis) 0.51 - 2.00 Sepsis is possible, but other conditions are known to elevate PCT as well. (MODERATE RISK for progression to Sepsis) > 2.00 Sepsis is likely, unless other causes are known. (HIGH RISK for progression to Severe Sepsis or Septic Shock) 10.00 High likelihood of Severe Sepsis or Septic or higher Shock. *Increased PCT levels may not always be related to systemic bacterial infection.*Low PCT levels do not automatically exclude the presence of bacterial infection.*All results should be interpreted taking into account the patients history. COMPREHENSIVE METABOLIC [id number] 08:27:00* Test Item Value Reference Range Interpretation Comments SODIUM (test code = NA) 141 mmol/L 136-145 RESU LT VERIFIED BY REPEAT ANALYSIS POTASSIUM (test code = K) 5.1 mmol/L 3.5-5.1 N CHLORIDE (test code = CL) 111.0 mmol/L 98-107 H CARBON DIOXIDE (test code = CO2) 26.0 mmol/L 21-32 N ANION GAP (test code = GAP) 9.1 10-20 L GLUCOSE (test code = GLU) 88 mg/dL 74-106 N BLOOD UREA NITROGEN (test code = BUN) 16 mg/dL 7-18 N GLOMERULAR FILTRATION RATE (test code = GFR) 54 mL/min >=60 Estimated GFR by using Modified MDRD formula.Chronic kidney disease is defined as either kidney damageor GFR <60 mL/min/1.73 m2 for >3 months. CREATININE (test code = CREAT) 1.00 mg/dL 0.55-1.02 N Note change in reference range due to change in reagent. BUN/CREATININE RATIO (test code = BUN/CREA) 16.0 10-20 N TOTAL PROTEIN (test code = PROT) 6.2 gram/dL 6.4-8.2 L ALBUMIN (test code = ALB) 2.7 g/dL 3.4-5.0 L GLOBULIN (test code = GLOB) 3.5 gram/dL 2.7-4.2 N ALBUMIN/GLOBULIN RATIO (test code = A/G) 0.8 0.75-1.50 N CALCIUM (test code = CA) 8.6 mg/dL 8.5-10.1 N BILIRUBIN TOTAL (test code = BILT) 0.20 mg/dL 0.0-1.0 N SGOT/AST (test code = AST) 12 IUnit/L 15-37 L SGPT/ALT (test code = ALT) 13 IUnit/L 12-78 N ALKALINE PHOSPHATASE TOTAL (test code = ALKP) 73 IUnit/L 45-117 N Note change in reference range due to change in reagent. CBC W/AUTO [id number] 08:14:00* Test Item Value Reference Range Interpretation Comments WHITE BLOOD CELL (test code = WBC) 12.2 K/mm3 4.5-12.5 N RED BLOOD CELL (test code = RBC) 3.10 mill/mm3 3.7-5.2 L HEMOGLOBIN (test code = HGB) 10.3 gram/dL 11.5-15.5 L HEMATOCRIT (test code = HCT) 32.0 % 36.0-46.0 L MEAN CELL VOLUME (test code = MCV) 103.2 fL 80-98 H MEAN CELL HGB (test code = MCH) 33.2 picogram 27.0-33.0 H MEAN CELL HGB CONCETRATION (test code = MCHC) 32.2 gram/dL 33.0-36. 0 L RED CELL DISTRIBUTION WIDTH (test code = RDW) 12.7 % 11.6-16. 2 N RED CELL DISTRIBUTION WIDTH SD (test code = RDW-SD) 48.1 fL 37 .0-51.0 N PLATELET COUNT (test code = PLT) 197 K/mm3 150-450 N MEAN PLATELET VOLUME (test code = MPV) 11.0 fL 6.7-11.0 N NEUTROPHIL % (test code = NT%) 74.1 % 39.0-69.0 H IMMATURE GRANULOCYTE % (test code = IG%) 0.4 % 0.0-5.0 N LYMPHOCYTE % (test code = LY%) 13.1 % 25.0-55.0 L MONOCYTE % (test code = MO%) 10.5 % 0.0-10.0 H EOSINOPHIL % (test code = EO%) 1.6 % 0.0-5.0 N BASOPHIL % (test code = BA%) 0.3 % 0.0-1.0 N NUCLEATED RBC % (test code = NRBC%) 0.0 % 0-0 N NEUTROPHIL # (test code = NT#) 9.01 K/mm3 1.8-7.7 H IMMATURE GRANULOCYTE # (test code = IG#) 0.05 x10 3/uL 0-0.03 H LYMPHOCYTE # (test code = LY#) 1.59 K/mm3 1.0-5.0 N MONOCYTE # (test code = MO#) 1.28 K/mm3 0-0.8 H EOSINOPHIL # (test code = EO#) 0.19 K/mm3 0.0-0.5 N BASOPHIL # (test code = BA#) 0.04 K/mm3 0.0-0.2 N NUCLEATED RBC # (test code = NRBC#) 0.00 K/mm3 0.0-0.1 N MANUAL DIFF REQUIRED (test code = MDIFF) NO COMPREHENSIVE METABOLIC [id number] 13:06:00* Test Item Value Reference Range Interpretation Comments SODIUM (test code = NA) 135 mmol/L 136-145 L POTASSIUM (test code = K) 4.4 mmol/L 3.5-5.1 N CHLORIDE (test code = CL) 108.0 mmol/L 98-107 H CARBON DIOXIDE (test code = CO2) 25.0 mmol/L 21-32 N ANION GAP (test code = GAP) 6.4 10-20 L GLUCOSE (test code = GLU) 81 mg/dL 74-106 N BLOOD UREA NITROGEN (test code = BUN) 17 mg/dL 7-18 N GLOMERULAR FILTRATION RATE (test code = GFR) > 60 mL/min >=60 Estimated GFR by using Modified MDRD formula.Chronic kidney disease is defined as either kidney damageor GFR <60 mL/min/1.73 m2 for >3 months. CREATININE (test code = CREAT) 0.90 mg/dL 0.55-1.02 N Note change in reference range due to change in reagent. BUN/CREATININE RATIO (test code = BUN/CREA) 18.9 10-20 N TOTAL PROTEIN (test code = PROT) 6.2 gram/dL 6.4-8.2 L ALBUMIN (test code = ALB) 2.9 g/dL 3.4-5.0 L GLOBULIN (test code = GLOB) 3.3 gram/dL 2.7-4.2 N ALBUMIN/GLOBULIN RATIO (test code = A/G) 0.9 0.75-1.50 N CALCIUM (test code = CA) 8.2 mg/dL 8.5-10.1 L BILIRUBIN TOTAL (test code = BILT) 0.30 mg/dL 0.0-1.0 N SGOT/AST (test code = AST) 15 IUnit/L 15-37 N SGPT/ALT (test code = ALT) 13 IUnit/L 12-78 N ALKALINE PHOSPHATASE TOTAL (test code = ALKP) 67 IUnit/L 45-117 N Note change in reference range due to change in reagent. COMPREHENSIVE METABOLIC [id number] 13:00:00* Test Item Value Reference Range Interpretation Comments SODIUM (test code = NA) 135 mmol/L 136-145 L POTASSIUM (test code = K) 4.4 mmol/L 3.5-5.1 N CHLORIDE (test code = CL) 108.0 mmol/L 98-107 H CARBON DIOXIDE (test code = CO2) mmol/L 21-32 ANION GAP (test code = GAP) 10-20 GLUCOSE (test code = GLU) mg/dL 74-106 BLOOD UREA NITROGEN (test code = BUN) mg/dL 7-18 GLOMERULAR FILTRATION RATE (test code = GFR) mL/min >=60 CREATININE (test code = CREAT) mg/dL 0.55-1.02 BUN/CREATININE RATIO (test code = BUN/CREA) 10-20 TOTAL PROTEIN (test code = PROT) gram/dL 6.4-8.2 ALBUMIN (test code = ALB) g/dL 3.4-5.0 GLOBULIN (test code = GLOB) gram/dL 2.7-4.2 ALBUMIN/GLOBULIN RATIO (test code = A/G) 0.75-1.50 CALCIUM (test code = CA) mg/dL 8.5-10.1 BILIRUBIN TOTAL (test code = BILT) mg/dL 0.0-1.0 SGOT/AST (test code = AST) IUnit/L 15-37 SGPT/ALT (test code = ALT) IUnit/L 12-78 ALKALINE PHOSPHATASE TOTAL (test code = ALKP) IUnit/L 45-117 CBC W/AUTO [id number] 12:44:00* Test Item Value Reference Range Interpretation Comments WHITE BLOOD CELL (test code = WBC) 19.0 K/mm3 4.5-12.5 H RED BLOOD CELL (test code = RBC) 3.11 mill/mm3 3.7-5.2 L HEMOGLOBIN (test code = HGB) 10.3 gram/dL 11.5-15.5 L HEMATOCRIT (test code = HCT) 32.2 % 36.0-46.0 L MEAN CELL VOLUME (test code = MCV) 103.5 fL 80-98 H MEAN CELL HGB (test code = MCH) 33.1 picogram 27.0-33.0 H MEAN CELL HGB CONCETRATION (test code = MCHC) 32.0 gram/dL 33.0-36. 0 L RED CELL DISTRIBUTION WIDTH (test code = RDW) 12.6 % 11.6-16. 2 N RED CELL DISTRIBUTION WIDTH SD (test code = RDW-SD) 47.2 fL 37 .0-51.0 N PLATELET COUNT (test code = PLT) 201 K/mm3 150-450 N MEAN PLATELET VOLUME (test code = MPV) 10.8 fL 6.7-11.0 N NEUTROPHIL % (test code = NT%) 81.4 % 39.0-69.0 H IMMATURE GRANULOCYTE % (test code = IG%) 0.5 % 0.0-5.0 N LYMPHOCYTE % (test code = LY%) 9.3 % 25.0-55.0 L MONOCYTE % (test code = MO%) 8.1 % 0.0-10.0 N EOSINOPHIL % (test code = EO%) 0.5 % 0.0-5.0 N BASOPHIL % (test code = BA%) 0.2 % 0.0-1.0 N NUCLEATED RBC % (test code = NRBC%) 0.0 % 0-0 N NEUTROPHIL # (test code = NT#) 15.45 K/mm3 1.8-7.7 H IMMATURE GRANULOCYTE # (test code = IG#) 0.10 x10 3/uL 0-0.03 H LYMPHOCYTE # (test code = LY#) 1.77 K/mm3 1.0-5.0 N MONOCYTE # (test code = MO#) 1.53 K/mm3 0-0.8 H EOSINOPHIL # (test code = EO#) 0.10 K/mm3 0.0-0.5 N BASOPHIL # (test code = BA#) 0.04 K/mm3 0.0-0.2 N NUCLEATED RBC # (test code = NRBC#) 0.00 K/mm3 0.0-0.1 N MANUAL DIFF REQUIRED (test code = MDIFF) NO URINALYSIS [id number] 02:46:00* Test Item Value Reference Range Interpretation Comments UA COLOR (test code = COLU) Light-Yellow YELLOW UA APPEARANCE (test code = APPU) Cloudy CLEAR A UA GLUCOSE DIPSTICK (test code = DGLUU) NEGATIVE mg/dL NEGATIVE UA BILIRUBIN DIPSTICK (test code = BILU) NEGATIVE mg/dL NEGATIVE UA KETONE DIPSTICK (test code = KETU) NEGATIVE mg/dL NEGATIVE UA SPECIFIC GRAVITY (test code = SGU) 1.007 1.001-1.035 UA BLOOD DIPSTICK (test code = VARUN) 0.2 mg/dL (2+) mg/dL NEGATIVE A UA PH DIPSTICK (test code = LADY) 6.0 5.0-8.0 UA PROTEIN DIPSTICK (test code = PROU) 30 (1+) mg/dL NEGATIVE A UA UROBILINIOGEN DIPSTICK (test code = URO) Normal mg/dL NEGATIVE UA NITRITE DIPSTICK (test code = MAURA) POSITIVE NEGATIVE A UA LEUKOCYTE ESTERASE W REFLEX (test code = LEUUR) 500 Olga Lidia/u L (2+) Olga Lidia/uL NEGATIVE A UA WBC (test code = WBCU) >200 per HPF 0-5 A UA RBC (test code = RBCU) 11-20 #/HPF 0-5 A UA EPITHELIAL CELLS (test code = EPIU) Few (2-5/hpf) per HPF FEW UA BACTERIA (test code = BACU) FEW #/HPF NONE A UA MUCUS (test code = MUCU) FEW #/LPF FEW Urine Source? Clean CatchB-TYPE NATRIURETIC [id number] 01:44:00* Test Item Value Reference Range Interpretation Comments B-TYPE NATRIURETIC PEPTIDE (test code = BNP) 144.99 pgram/mL 0-100 H PROCALCITONIN (PCT)2018-12-20 01:42:00* Test Item Value Reference Range Interpretation Comments PROCALCITONIN (PCT) (test code = PROCAL) 2.38 ng/ml HH Concentration Interpretation (ng/mL) <0.51 Sepsis is not likely. Local bacterial infection is possible. (LOW RISK for progression to Sepsis) 0.51 - 2.00 Sepsis is possible, but other conditions are known to elevate PCT as well. (MODERATE RISK for progression to Sepsis) > 2.00 Sepsis is likely, unless other causes are known. (HIGH RISK for progression to Severe Sepsis or Septic Shock) 10.00 High likelihood of Severe Sepsis or Septic or higher Shock. *Increased PCT levels may not always be related to systemic bacterial infection.*Low PCT levels do not automatically exclude the presence of bacterial infection.*All results should be interpreted taking into account the patients history. BASIC METABOLIC [id number] 01:35:00* Test Item Value Reference Range Interpretation Comments SODIUM (test code = NA) 137 mmol/L 136-145 N POTASSIUM (test code = K) 3.4 mmol/L 3.5-5.1 L CHLORIDE (test code = CL) 106.0 mmol/L 98-107 N CARBON DIOXIDE (test code = CO2) 24.0 mmol/L 21-32 N ANION GAP (test code = GAP) 10.4 10-20 N GLUCOSE (test code = GLU) 112 mg/dL 74-106 H BLOOD UREA NITROGEN (test code = BUN) 19 mg/dL 7-18 H GLOMERULAR FILTRATION RATE (test code = GFR) 54 mL/min >=60 Estimated GFR by using Modified MDRD formula.Chronic kidney disease is defined as either kidney damageor GFR <60 mL/min/1.73 m2 for >3 months. CREATININE (test code = CREAT) 1.00 mg/dL 0.55-1.02 N Note change in reference range due to change in reagent. BUN/CREATININE RATIO (test code = BUN/CREA) 19.0 10-20 N CALCIUM (test code = CA) 8.1 mg/dL 8.5-10.1 L HEPATIC FUNCTION [id number] 01:35:00* Test Item Value Reference Range Interpretation Comments TOTAL PROTEIN (test code = PROT) 6.1 gram/dL 6.4-8.2 L ALBUMIN (test code = ALB) 3.1 g/dL 3.4-5.0 L GLOBULIN (test code = GLOB) 3.0 gram/dL 2.7-4.2 N ALBUMIN/GLOBULIN RATIO (test code = A/G) 1.0 0.75-1.50 N BILIRUBIN TOTAL (test code = BILT) 0.30 mg/dL 0.0-1.0 N BILIRUBIN DIRECT (test code = BILD) 0.08 mg/dL 0.0-0.20 N SGOT/AST (test code = AST) 19 IUnit/L 15-37 N SGPT/ALT (test code = ALT) 16 IUnit/L 12-78 N ALKALINE PHOSPHATASE TOTAL (test code = ALKP) 88 IUnit/L 45-117 N Note change in reference range due to change in reagent. [id number] 01:35:00* Test Item Value Reference Range Interpretation Comments LIPASE (test code = LIP) 140 U/L 73.0-393.0 N [id number] 01:35:00* Test Item Value Reference Range Interpretation Comments TROPONIN-I (test code = TROPI) 0.040 ng/mL 0-0.045 N PROTHROMBIN [id number] 01:29:00* Test Item Value Reference Range Interpretation Comments PROTHROMBIN TIME PATIENT (test code = PTP) 12.2 seconds 9.0-14.0 N INTERNATIONAL NORMAL RATIO (test code = INR) 1.0 0.8-1.2 N The therapeutic range for oral anticoagulant therapy formost indications is an international normalized ratio (INR)of between 2.0 and 3.0. The recommended therapeutic INRrange for various clinical situations is listed below: Clinical Situation INR range Pulmonary e mbolism treatment (2.0-3.0)Venous thrombosis treatmentVenous thrombosis prophylaxis (high risk surgery)Prevention of systemic embolism from: Acute myocardial infarction Valvular heart disease Atrial fibrillation Mechanical prosthetic heart valves (2.5-3.5) IS PATIENT ON ANTICOAGULANTS? NTHROMBOPLASTIN TIME [id number] 01:29:00* Test Item Value Reference Range Interpretation Comments THROMBOPLASTIN TIME PARTIAL (test code = PTT) 32.4 seconds 25.0-36. 5 N IS PATIENT ON ANTICOAGULANTS? NBASIC METABOLIC [id number] 01:28:00* Test Item Value Reference Range Interpretation Comments SODIUM (test code = NA) 137 mmol/L 136-145 N POTASSIUM (test code = K) 3.4 mmol/L 3.5-5.1 L CHLORIDE (test code = CL) 106.0 mmol/L 98-107 N CARBON DIOXIDE (test code = CO2) mmol/L 21-32 ANION GAP (test code = GAP) 10-20 GLUCOSE (test code = GLU) mg/dL 74-106 BLOOD UREA NITROGEN (test code = BUN) mg/dL 7-18 GLOMERULAR FILTRATION RATE (test code = GFR) mL/min >=60 CREATININE (test code = CREAT) mg/dL 0.55-1.02 BUN/CREATININE RATIO (test code = BUN/CREA) 10-20 CALCIUM (test code = CA) mg/dL 8.5-10.1 HEPATIC FUNCTION [id number] 01:28:00* Test Item Value Reference Range Interpretation Comments TOTAL PROTEIN (test code = PROT) gram/dL 6.4-8.2 ALBUMIN (test code = ALB) g/dL 3.4-5.0 GLOBULIN (test code = GLOB) gram/dL 2.7-4.2 ALBUMIN/GLOBULIN RATIO (test code = A/G) 0.75-1.50 BILIRUBIN TOTAL (test code = BILT) mg/dL 0.0-1.0 BILIRUBIN DIRECT (test code = BILD) mg/dL 0.0-0.20 SGOT/AST (test code = AST) IUnit/L 15-37 SGPT/ALT (test code = ALT) IUnit/L 12-78 ALKALINE PHOSPHATASE TOTAL (test code = ALKP) IUnit/L 45-117 [id number] 01:28:00* Test Item Value Reference Range Interpretation Comments LIPASE (test code = LIP) U/L 73.0-393.0 [id number] 01:28:00* Test Item Value Reference Range Interpretation Comments TROPONIN-I (test code = TROPI) ng/mL 0-0.045 LACTIC [id number] 01:28:00* Test Item Value Reference Range Interpretation Comments LACTIC ACID (test code = LACT) 1.2 mmol/L 0.4-1.9 N CBC W/AUTO [id number] 01:09:00* Test Item Value Reference Range Interpretation Comments WHITE BLOOD CELL (test code = WBC) 12.9 K/mm3 4.5-12.5 H RED BLOOD CELL (test code = RBC) 2.99 mill/mm3 3.7-5.2 L HEMOGLOBIN (test code = HGB) 9.8 gram/dL 11.5-15.5 L HEMATOCRIT (test code = HCT) 30.4 % 36.0-46.0 L MEAN CELL VOLUME (test code = MCV) 101.7 fL 80-98 H MEAN CELL HGB (test code = MCH) 32.8 picogram 27.0-33.0 N MEAN CELL HGB CONCETRATION (test code = MCHC) 32.2 gram/dL 33.0-36. 0 L RED CELL DISTRIBUTION WIDTH (test code = RDW) 12.4 % 11.6-16. 2 N RED CELL DISTRIBUTION WIDTH SD (test code = RDW-SD) 45.9 fL 37 .0-51.0 N PLATELET COUNT (test code = PLT) 168 K/mm3 150-450 N MEAN PLATELET VOLUME (test code = MPV) 10.6 fL 6.7-11.0 N NEUTROPHIL % (test code = NT%) 92.4 % 39.0-69.0 H IMMATURE GRANULOCYTE % (test code = IG%) 0.5 % 0.0-5.0 N LYMPHOCYTE % (test code = LY%) 2.8 % 25.0-55.0 L MONOCYTE % (test code = MO%) 4.0 % 0.0-10.0 N EOSINOPHIL % (test code = EO%) 0.1 % 0.0-5.0 N BASOPHIL % (test code = BA%) 0.2 % 0.0-1.0 N NUCLEATED RBC % (test code = NRBC%) 0.0 % 0-0 N NEUTROPHIL # (test code = NT#) 11.92 K/mm3 1.8-7.7 H IMMATURE GRANULOCYTE # (test code = IG#) 0.06 x10 3/uL 0-0.03 H LYMPHOCYTE # (test code = LY#) 0.36 K/mm3 1.0-5.0 L MONOCYTE # (test code = MO#) 0.51 K/mm3 0-0.8 N EOSINOPHIL # (test code = EO#) 0.01 K/mm3 0.0-0.5 N BASOPHIL # (test code = BA#) 0.02 K/mm3 0.0-0.2 N NUCLEATED RBC # (test code = NRBC#) 0.00 K/mm3 0.0-0.1 N - XR CHEST 1 [id number] 23:25:00 FAX: Sunni De Dios MD [phone] [place]: St: REG Name: RONAK SHANNON [facility] : 11/03/18 42 Age/S: 73/F [address] [facility] Unit #: [id number] Loc: [place] [address] Phys: Sunni De Dios MD Acct: [id number] Dis Date: Status: REG ER PHONE #: [phone] Exam Date: 12/19/20182316 FAX #: [phone] Reason: CODE SEPSIS EXAMS: CPT CODE: [id number] XR CHEST 1 V 56778 - XR CHEST 1 V, 12/19/2018 10:53 PM Reason For Examination: CODE SEPSIS Comparison: 10/17 Location: R16 Findings LUNGS: No definite pulmonary edema or consolidation, nonspecific lucency seen within the lateral aspect of the right hemithorax may reflect a mach band as there are lung markings seen more distally. Increased interstitia l markings may reflect a small airways process PLEURA: No p leural effusions CARDIOMEDIASTINAL SILHOUETTE Unremarkabl e IMPRESSION: There is a nonspecific lucency se en within the lateral aspect of the right hemithorax which may reflect a mach band as there are lung markings seen more distally. Increased int erstitial markings may reflect a small airways process at 5658 Reported and signed by: Sandra Núñez M.D. CC: Sunni De Dios MD Technologist: Ericka Mcintyre Trnscrd Date/Time/By: 12/19/2018 (4486) : By: [email or web address] Print D/T: S: 12/19/2018 (1814) PAGE 1 Signed Report CHEST 2 VIEWS [place] [id number] [place] [address] Patient Name: RONAK BAILON MR #: [id number] : 1945 Age/Sex: 72/F Req #: [id number] Adm Physician: Ordered by: WILBER RAMOS MD Report #: [id number] Location: OR Room/Bed: Procedure: [id number] DX/CHEST 2 VIEWS Exam Date: 0 11/11/17 Exam Time: 1215 REPORT STATUS: Signed PROCEDURE: Frontal and lateral views of the chest. COMPARISON: Chest x ray 08/24/2010. INDICATIONS: pre-op FINDINGS: Lines/tubes: No ne. Lungs: The lungs are well inflated and clear. There is no evidence of pneumonia or pulmonary edema. Pleura: There is no pleural effusion or pneumothorax. Atherosclerotic calcifications in aorta. Heart and media stinum: Anterior cervical fusion plate. The heart and the mediastinum are no rmal. Bones: No acute bony abnormality. IMPRESSION: No acute car diopulmonary disease. Dictated by: Sonny Latif M.D. on 11/11/2017 at 12:45 Electronically approved by: Sonny Latif M.D. on 11/11/2017 at 12:45 Dictated By: SONNY LATIF MD 1 547 Transcribed By: CHASE on 11/11/17 1249 COPY TO: WILBER RAMOS MD RENAL SCAN W/LASIX [place] [address] Patient Name: RONAK BAILON MR #: [id number] : 1945 Age/Sex: 71/F Req #: [id number] Adm Physician: Ordered by: CHASE GIBBONS MD Report #: [id number] Location: [place] Room/Bed: Procedure: [id number] NM/RENAL SCAN W/LASIX Exam Date: 06/14/17 Exam Time: 1555 REPORT STATUS: Signed Renal Scan with Lasix [place] Clinical information: 71 F with interstit ial cystitis Technique: Following intravenous administration of 9.7 mCi of Tc-99m MAG3, dynamic images of the kidneys in the posterior projection were ob tained through 40 minutes. Lasix 40 mg was administered intravenously at 10 m inutes post injection of the tracer. Report: Left kidney: Perfusion of the left kidney is prompt. The kidney has a reniform shape although is dec reased in size. The renal cortex is not thinned. Extraction of tracer from t he blood pool is decreased. Clearance of tracer from the renal parenchyma beg ins promptly but is not complete by the end of the study. The pelvicalyceal s ystem is not dilated. Physiologic pooling of tracer within the pelvicalyceal system is seen. Drainage of tracer from the pelvicalyceal system is prompt an d adequate prior to administration of Lasix. No significant stasis of tracer is seen within the left ureter. Right kidney: Perfusion of the right kidney is prompt. The kidney has a reniform shape although is decreased in size. T he renal cortex is not thinned. Extraction of tracer from the blood pool is d ecreased. Clearance of tracer from the renal parenchyma begins promptly but i s not complete by the end of the study. The pelvicalyceal system is not dilat ed. Physiologic pooling of tracer within the pelvicalyceal system is seen. D rainage of tracer from the pelvicalyceal system is prompt and adequate prior t o administration of Lasix. No significant stasis of tracer is seen within the right ureter. Differential renal function: The left kidney contributes 51% of total renal function and the right kidney contributes 49% (normal 43-57%). Impression: Scan evidence of medical renal disease in both kidneys a lthough may be normal for patient's age. No hydronephrosis or physiologically significant obstruction of either kidney. The differential renal function is preserved. Signed by: Dr. Audrey Holt M.D. on 06/14/2017 8:45 PM D ictated By: AUDREY HOLT MD 44 Transcribed By: ABHISHEK on 06/14/172044 COPY TO: CHASE GIBBONS MD CT ABDOMEN/PELVIS WOW [place] [address] Patient Name: RONAK BAILON MR #: [id number] : 1945 Age/Sex: 71/F Req #: [id number] Adm Physician: Ordered by: CHASE GIBBONS MD Report #: [id number] Location: CT Room/Bed: Procedure: CT/CT ABDOMEN/PELVIS WOW Exam Da te: 04/23/17 Exam Time: 0930 REPORT STATUS: Sig avis PROCEDURE: CT ABDOMEN T PELVIS W/WO CONTRAST TECHNIQUE: The ab domen and pelvis were scanned utilizing a multidetector helical scanner from the diaphragm to the lesser trochanter before and after the IV administration of 100 cc Isovue 370 and the oral administration of water. Imaging was perfo rmed per CT urogram protocol. Coronal and sagittal multiplanar reformations w ere obtained. COMPARISON: CT abdomen and pelvis with contrast 05/09/2016. INDICATIONS: GROSS HEMATURIA FINDINGS: LOWER THORAX: Mild bilater al lower lobe bronchiectasis, likely postinfectious.. HEPATOBILIARY: No focal hepatic lesions. No biliary ductal dilatation. SPLEEN: No splenomegaly. PANCREAS: No focal masses or ductal dilatation. ADRENALS: No adrenal n odules. KIDNEYS/URETERS: Subcentimeter hypoattenuating lesion in the upper laure e of the right kidney, too small to further characterize but likely repres ent a small cyst. Bilateral extrarenal pelves. Precontrast images show no addis culi within the upper collecting systems, ureters, or urinary bladder. Additi onal subcentimeter hypoattenuating lesions within the lower poles of both kid neys, also too small to further characterize though likely to represent small cysts. Excretory phase images show no filling defects within the upper colle cting systems, ureters, or urinary bladder. PELVIC ORGANS/BLADDER: The uter us is neutral in position and appears normal. 1.8 cm left ovarian cystic stru cture has average internal attenuation 19 Hounsfield units. No additional adn exal mass. PERITONEUM / RETROPERITONEUM: No free air or fluid. LYMPH NOD ES: No pelvic sidewall, retroperitoneal, or mesenteric lymphadenopathy. VES SELS: There is atherosclerotic calcification of the abdominal aorta, major br anch vessels, and iliac arterial systems without aneurysmal dilatation. The p ortal vein, splenic vein, and central superior mesenteric vein are patent. GI TRACT: Radiopaque suture material along the lower rectum. The large spike wel otherwise shows no evidence of distention or wall thickening. The appendi x is not definitively identified. No right lower quadrant inflammatory change . The stomach is collapsed and poorly evaluated. There is no small bowel dila tation to suggest obstruction. BONES AND SOFT TISSUES: Multiple dystrophic soft tissue calcifications within the subcutaneous fat of the gluteal region s. No osseous destructive lesions. Partial fusion of the left sacroiliac join t. Advanced multilevel degenerative disc disease of the lumbar spine. I MPRESSION: No urolithiasis or filling defects within the upper collecting systems, ureters, or urinary bladder to explain the reported history of he maturia. Subcentimeter hypoattenuating bilateral renal lesions are too small to further characterize though likely represent small cysts. Left ovarian cystic lesion should be further evaluated by pelvic ultrasound in a patient o f this age. Atherosclerotic vascular disease. Dictated by: Wilber gonzalez M.D. on 04/23/2017 at 13:58 Electronically approved by: Wilber Hammond M.D. on 04/23/2017 at 13:58 Dictated By: WILBER HAMMOND MD Electro nically Signed By: WILBER HAMMOND MD on 04/23/17 1358 Transcribed By: CHASE on 0 04/23/17 1358 COPY TO: CHASE GIBBONS MD
--- OUTSIDE RECORDS SUMMARY | 2020-05-06 10:22 | XMS REPORT | Continuity of Care Document ---
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 Active 02/2018 [facility] [place] Radiculopathy, cervical region 12/02/2017 03/01/2018 [facility] [place] Dysphagia, oropharyngeal phase 10/08/2017 01/08/2018 [facility] [place] M54.12 CERVICAL RADICULAPATHY Active 09/17/2017 [facility] [place] VENOFER 200MG//CPT: J1745, 91724///DX: D Active 05/24/2017 [facility] J18.1 - "LOBAR PNEUMONIA, UNSPECIFIED O" Active 12/24/2016 [facility] [place] R53.1 - WEAKNESS Active 11/21/2016 [facility] [place] Z12.31 - ENCNTR SCREEN MAMMOGRAM FOR MA Active 08/21/2016 [facility] [place] R91.8 - OTHER NONSPECIFIC ABNORMAL FIN Active 07/11/2016 [facility] [place] M54.17 - "RADICULOPATHY, LUMBOSACRAL REG Active 06/28/2015 [facility] [place] 715.96 - OSTEOARTHROS NO Active 06/29/2014 [facility] [place] 599.70 - HEMATURIA NOS Active 10/29/2012 [facility] [place] 338 - PAIN NEC Active 08/22/2012 [facility] [place] Unspecified abdominal pain 01/08/2018 [facility] [place] Chest pain, unspecified 01/08/2018 [facility] [place] Gastro-esophageal reflux disease without esophagitis 01/08/2018 [facility] [place] Atherosclerosis of aorta 01/08/2018 [facility] [place] Muscle weakness (generalized) 03/01/2018 [facility] [place] Abnormal posture 03/17/2019 [facility] [place] Weakness 03/17/2019 [facility] [place] Neck pain Active Problem 02/27/2020 Haile Webber KATHYA positive Active Problem 02/27/2020 Haile WebberAmaya Stacy 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 Haile Webber Paresthesia Active Problem 02/27/2020 Haile Webber Trigger finger, right ring finger Active Problem 06/2020 Haile Webber Dysphagia, unspecified Active Problem 02/27/2020 Haile Webber Polyarthritis Active Problem 02/27/2020 Haile Webber Sicca syndrome Active Problem 02/27/2020 Haile Webber Trigger finger, right middle finger Active Problem 06/2020 Haile Webber Sicca complex Active Diagnosis 11/14/2016 Amaya Najam [...] pain, right Active Diagnosis 07/29/2018 Haile Llaneser extermination inspector (current) use of non-steroidal anti-inflammatories (NSAID) Active Prob carly 02/27/2020 Haile Webber Dyspareunia Active 12/03/2012 [facility] RAN NECK/LEG PAIN Active [facility] Tawana Delavan RAN LEG PAIN Active [facility] [place] LUMBAR RADICULOPATHY Active [facility] [place] Medications Medication Details Route Status Patient Instructions [...] exams dated: 06/30/2018 mammogram, 08/21/2016 mammogram - [facility] [place], 09/12/2015 mammogram, and 04/06/2014 mammogram - [facility]. TECHNIQUE: Color flow and real-time ultrasound of [...] is recommended.(07/01/2019) This exam was interpreted at [id number] for DEYVI Aguirre, SL 15. Professional services are provided by the [facility]. Jacob Rojas M.D., cm/sonia:06/30/2018 11:46:27 Film Masker(s): Hanh Almeida [facility] [place] letter sent: BI-RADS 1/2 Ultrasound BI-RADS: 2 Benign 06/30/2018 DEYVI Aguirre Breast Mammo Diag RAN incl CAD MA BILATERAL DIGITAL DIAGNOSTIC MAMMOGRAM WITH CAD: 06/30/2018 CLINICAL: N64.4 Mastodynia/N64.4 Mastodynia. Current study was evaluated with a Computer Aided Detection (CAD) system. COMPARISON:Comparison is made to exams dated: 08/21/2016 mammogram - [facility] [place], 09/12/2015 mammogram, and 04/06/2014 mammogram - [facility]. TECHNIQUE: Mammographic views were obtained using digital [...] is recommended. This exam was interpreted at [id number] for DEYVI Timothy, SL 15. Professional services are provided by the [facility] of Diagnostic Imaging. Jacob Rojas M.D., cm/sonia:06/30/2018 11:24:49 Film Masker(s): RT Ann(R)(M), [facility] [place] Mammogram BI-RADS: 0 Indeterminate 06/30/2018 [facility] [place] Hand wo contrast MRI EXAMINATI ON: MRI [...] pain. Dysphagia. Comparison Exam: Ultrasound 10/02/2017 Discussion: Head Char Filter Tank Tender view is unremarkable without evidence for dilated [...] lower lung has decreased significantly. 12/25/2016 [facility] [place] Chest 2 views DX EXAM: PA AND [...] Diagnostic Imaging. Jacob Rojas M.D., cm/sonia:09/03/2016 10:09:24 Film Masker: Iraida RUSSELL)(Veronica), [facility] [place] This exam was dictated and interpreted by [id number] for DEYVI Khan, NANCY 15. letter sent: [...] services are provided by the [facility] [place] [facility]. This exam was dictated and interpreted by [id number] for NANCY Iyer 15. Jacob Rojas M.D., cm/pentarik:07/17/2016 11:08:39 Film Masker: Randee Jones RT(R)(M), [facility] [place] 07/16/2016 [facility] Chest 2 views DX EXAM: 2 view(s) [...] is unremarkable. IMPRESSION: No significant abnormality. 02/01/2015 [facility] Abdomen complete US Exam: Abdo sae [...] joint noted. IMPRESSION: No significant abnormality. 02/01/2015 [facility] [place] Spine cervical wo contrast MRI MRI CERVICAL [...] Webber Temperature Oral (F) 98.3 F 05/11/2019 Hiale Webber Heart Rate 56 05/11/2019 Haile Webber [...] ADM Date DC Date Status Source OD [id number] 338 - PAIN NEC STEPHAN LAW 08/25/2012 08/25/2012 Active [facility] [place] OD [id number] 599.70 - HEMATURIA NOS MARIAH TOWNSEND 11/06/2012 11/06/2012 Active [facility] [place] AUDIT [id number] 12/02/2012 12/03/2012 [facility] [place] [facility] [id number] Chidi Jacintoth 07/05/2014 07/06/2014 [facility] [place] [facility] [id number] Chidi Jacintoth 07/22/2014 07/23/2014 [facility] [place] [facility] [id number] 04 Stephan Law 02/01/2015 02/02/2015 [facility] [place] [facility] [id number] 06 Jose Phillips 07/16/2016 07/17/2016 [facility] [place] [facility] [id number] 07 Jose Phillips 08/21/2016 08/22/2016 [facility] [place] [facility] pain all over body [id number] 10/26/1910/25/2016 Amaya Stacy [facility] [place] [facility] [id number] 08 Jose Phillips 11/21/2016 11/22/2016 [facility] [place] [facility] [id number] 11 Farideh Martinez 01/03/2017 01/04/2017 [facility] [place] [facility] [id number] 12 Matilde Burch 05/31/2017 06/01/2017 [facility] [place] [facility] [id number] 13 Stephan Ramesh Ayestas 10/02/2017 10/03/2017 [facility] [id number] DYANA PANDEY 8 11/24/2017 [facility] [place] [facility] [id number] 14 Stephan Ramesh Ayestas 02/05/2018 02/06/2018 [facility] [place] [facility] [id number] 15 Claribel Saturday04/28/2018 04/29/2018 [facility] [place] [facility] [id number] 16 Stephan Ramesh Ayestas 06/30/2018 07/01/2018 [facility] [id number] [place] 07/29/2018 08/28/2018 [facility] [place] Procedures No Data Provided for This Section Assessment and Plan No Data Provided for This Section Plan of Care Plan of Care Date Source Pap ThinPrep 11/26/2012 Routine 12/03/2012 [facility] Social History Social History Date Source No data available for this section 08/28/2018 [facility] [place] No data available for this section 07/01/2018 [facility] [place] Social History ElementQualifiersDate Rep orted IV Drug abuse yes. October 25, 2016 Smoking status: no. Are you a: Never Smoker October 25, 2016 alcohol yes. October 25, 2016 10/25/2016 Amaya Stacy Never A Smoker (Active) Never Drank Alcohol (Active) 12/03/2012 [facility] Family History No Data Provided for This Section Advance Directives Order Name Results Value Date Source Advance Directives Advance Dir ectives No Advance Directives available. 12/03/2012 [facility] Functional Status No Data Provided for This Section
--- OUTSIDE RECORDS SUMMARY | 2020-05-06 10:22 | XMS REPORT | Continuity of Care Document ---
Author Author [facility] t Organization [facility] Address [address] [place] [address] Phone Unavailable Care Team Providers Care Social Research Assistant Name Role Phone Matthew BLOOM Attphys Unavailable [...] Source NECK PAIN NECK PAIN Active 07/29/2018 [facility] Anna Diagnosis Active 2018-07-29 08:00:00 2018-11-30 15:18:00 Omari Messina N64.4 - MASTODYNIA N64. 4 - MASTODYNIA Active 06/13/2018 [facility] Anna Diagnosis Active 2018-06-13 00:01:00 2018-11-28 16:24:00 [facility] Siddharth . Active 04/25/2018 [facility] Anna Diagnosis Active 2018-04-25 00:01:00 2018-11-28 16:24:00 [facility] M54.12 CERVICAL RADICULAPATHY M54.12 CERVICAL RADICULAPATHY Active 09/17/2017 [facility] Anna Diagnosis Active 2017-09-17 08:00:00 2017-10-25 14:18:00 [facility] Siddharth VENOFER 200MG//CPT: J1745, 00838///DX: D VENOFER 200MG//CPT: J1745, 43305///DX: D Active 05/24/2017 [facility] Active 2017-05-24 00:00:00 2017-08-25 15:25:00 [facility] J18.1 - "LOBAR PNEUMONIA, UNSPECIFIED O" J18.1 - "LOBAR PNEUMONIA, UNSPECIFIED O" Active 12/24/2016 [facility] Anna Diagnosis Active 2016-12-24 00:01:00 2016-12-24 09:01:00 [facility] R53.1 - WEAKNESS R53. 1 - WEAKNESS Active 11/21/2016 [facility] Anna Diagnosis Active 2016-11-21 00:01:00 2016-11-21 11:48:00 [facility] Siddharth Z12.31 - ENCNTR SCREEN MAMMOGRAM FOR MA Z12.31 - ENCNTR SCREEN MAMMOGRAM FOR MA Active 08/21/2016 [facility] Anna Diagnosis Active 2016-08-21 00:01:00 2016-08-21 08:25:00 [facility] R91.8 - OTHER NONSPECIFIC ABNORMAL FIN R91.8 - OTHER NONSPECIFIC ABNORMAL FIN Active 07/11/2016 [facility] Anna Diagnosis Active 2016-07-11 00:01:00 2016-07-16 09:12:00 [facility] M54.17 - "RADICULOPATHY, LUMBOSACRAL REG M54.17 - "RADICULOPATHY, LUMBOSACRAL REG Active 06/28/2015 [facility] Anna Diagnosis Active 2015-06-28 00:01:00 2015-08-12 15:52:00 [facility] 715.96 - OSTEOARTHROS NO 715. 96 - OSTEOARTHROS NO Active 06/29/2014 [facility] Anna Diagnosis Active 2014-06-29 00:01:00 2014-09-09 08:39:00 [facility] 599.70 - HEMATURIA NOS 599. 70 - HEMATURIA NOS Active 10/29/2012 [facility] Anna Diagnosis Active 2012-10-29 00:01:00 2013-01-08 10:40:00 [facility] 338 - PAIN NEC 338 - PAIN NEC Active 08/22/2012 [facility] Anna Diagnosis Active 2012-08-22 00:01:00 2012-09-08 13:05:00 [facility] Unspecified abdominal pain Uns pecified abdominal pain 01/08/2018 [facility] Anna Problem 2018-01-08 11:58:17 [facility] Chest pain, unspecified Ches t pain, unspecified 01/08/2018 [facility] Anna Problem 2018-01-08 11:58:17 [facility] Gastro-esophageal reflux disease without esophagitis Gastro-esophageal reflux disease without esophagitis 01/08/2018 [facility] Anna Problem 2018-01-08 11:58:17 Adalberto Messina Atherosclerosis of aorta Athe rosclerosis of aorta 01/08/2018 [facility] Anna Problem 2018-01-08 11:58:17 [facility] Muscle weakness (generalized) Muscle weakness (generalized) 03/01/2018 [facility] Anna Problem 2018-02 11:03:12 [facility] Abnormal posture Abno rmal posture 03/17/2019 [facility] Anna Problem 2019-03-17 11:40:58 [facility] Weakness Weak ness 03/17/2019 [facility] Anna Problem 2019-03-17 11:40:58 [facility] Neck pain Neck pain Active Problem 02/27/2020 Haile Webber Problem Active 2020-02-27 02:45:51 [facility] KATHYA positive KATHYA positive Active Problem 02/27/2020 Amaya Gomez Problem Active 2020-02-27 02:45:51 [facility] Inflammatory arthritis Infl ammatory arthritis Active Problem [...] 02/27/2020 Haileaneudy Webber Problem Active 2020-02-27 02:45:51 [facility] Pain, joint, multiple sites Pa in, joint, multiple sites Active Diagnosis 11/14/2016 Amaya Najam Diagnosis Active 2016-11-14 02:45:13 [facility] [address] Counseling NOS Coun seling NOS Active Diagnosis 11/14/2016 Amaya Najam Diagnosis Active 2016-11-14 02:45:13 Omari Messina Shoulder Impingement Syndrome Shoulder Impingement Syndrome Active Problem 11/14/2016 Amaya Najam Problem Active 2016-11-14 02:45:13 Omari Messina Sicca syndrome Sicc a syndrome Active Problem 11/14/2016 Amaya Najam Problem Active 2016-11-14 02:45:13 [facility] Pain in joint, multiple sites Pain in joint, multiple sites Active Problem 11/14/2016 Amaya Najam Problem Active 2016-11-14 02:45:13 [facility] Elevated KATHYA Elev ated KATHYA Active Problem 11/14/2016 Amaya Najam Problem Active 2016-11-14 02:45:13 [facility] Scleroderma Scle roderma Active Problem 11/14/2016 Amaya Najam Problem Active 2016-11-14 02:45:13 [facility] Hand pain, right Hand pain, right Active Diagnosis 07/29/2018 Haile Webber Diagnosis Active 2018-07-29 03:46:37 [facility] inter[facility] coordinator (current) use of non-steroidal anti-inflamma tories (NSAID) intermediate (current) use of non-steroidal anti-inflammatories (NSAID) Active Problem 02/27/2020 Haile Webber Problem Active 2020-02-27 02:45:51 [facility] Dyspareunia Dysp areunia Active 12/03/2012 [facility] Problem Active 2012-12-03 03:30:14 [facility] PIERO NECK/LEG PAIN PIERO NECK/LEG PAIN Active [facility] Diagnosis Active 2014-04-16 19:20:00 Md morial [facility] PIERO LEG PAIN PIERO LEG PAIN Active [facility] Anna Diagnosis Active 2014-04-17 13:20:00 [facility] LUMBAR RADICULOPATHY LUMB AR RADICULOPATHY Active [facility] Anna Diagnosis Active 2014-05-14 12:31:00 Md sergey Messina Mastodynia Mast odynia 07/05/2018 01/18/2019 [facility] Anna Problem 2018-07-05 05:42:49 2019-01-18 11:31:50 2019-01-18 11:31 :50 [facility] 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] 05/02/2018 11/15/2018 [facility] Anna Problem 2018-05-02 04:45:00 2018-11-15 12:59:30 2018-11-15 12:59:30 [facility] Radiculopathy, cervical region Radiculopathy, cervical region 12/02/2017 03/01/2018 [facility] Anna Problem 05-12-15 02:48:40 2018-03-01 11:03:12 2018-03-01 11:03:12 [facility] Dysphagia, oropharyngeal phase Dysphagia, oropharyngeal phase 10/08/2017 01/08/2018 [facility] Anna Problem 06-10-19 05:06:41 2018-01-08 11:58:17 2018-01-08 11:58:17 [facility] Allergies, Adverse Reactions, Alerts Allergy Name Allergy Type Status Severity Reaction(s) Onset Date Inacti ve Date Treating Clinician Comments Source N.K.Oseas.A. N.K.D.A. Active Info Not Available 2019-05-11 00:00:00 [facility] No Known Allergies DA Active U 2014-11-06 00:00:00 [facility] No Known Drug Allergies No Known Drug Allergies Active [facility] Social History Social Habit Start Date Stop Date Quantity Comments Source IVDrugabuse 2016-10-25 00:00:00 2016-10-25 00:00:00 [facility] Social History 2012-12-03 03:30:14 2012-12-03 03:30:14 [facility] Medications Ordered Medication Name Filled Medication Name Start Date Stop Da te Current Medication? Ordering Clinician Indication Dosage Frequency Signature (SIG) Comments Components Source Leflunomide 2019-05-11 00:00:00 Yes Sailaja Horn 1 tablet [facility] Levothyroxine Sodium 2018-12-25 02:47:08 Yes Farideh Rubio saf 1 tablet on an empty stomach in the morning [facility] Lyrica 2018-12-25 02:47:08 Yes Farideh Rubiosaf 1 c apsule [facility] Famotidine 2018-12-25 02:47:08 Yes Herba Michelle 1 tablet [facility] Gabapentin 2018-12-25 02:47:08 Yes Farideh Rooneyf TAKE ONE CAPSULE BY MOUTH THREE TIMES DAILY [facility] Vitamin B-12 2018-12-25 02:47:08 Yes Farideh Rubiosaf 2 tablets [facility] Montelukast Sodium 2018-12-25 02:47:08 Yes Herba Michelle 1 tablet [facility] Meclizine HCl 2018-12-25 02:47:08 Yes Herba Michelle 1 tablet as needed [facility] Celecoxib 200 mg q 12 prn #60 2018-12-10 00:00:00 Yes Mi sty Horn one tablet [facility] Prednisone Taper 2018-07-21 00:00:00 Yes Farideh Rooneyf 3 tablets for 5 days, 2 tablets for 5 days and then 1 tablet daily [facility] Methotrexate 2017-06-12 00:00:00 Yes Farideh Martinez 4 tabs alotgether [facility] PredniSONE 2017-06-12 00:00:00 Yes Farideh Martinez 1/2 tabs x 7days and then stop [facility] Gabapentin 2017-06-12 00:00:00 Yes Farideh Martinez TAKE ONE CAPSULE BY MOUTH THREE TIMES DAILY [facility] Folic Acid 2017-06-12 00:00:00 Yes Wajeeha Michelle 1 tablet [facility] Hydroxychloroquine Sulfate 2017-04-08 00:00:00 Yes Lopezjanelle menezes Michelle 1.5 tablet with food or milk [facility] Ibuprofen 2016-11-14 02:45:13 Yes Amaya Najam 1 tablet as needed [facility] Aquoral 2016-11-14 02:45:13 Yes Amaya Najam as d irected [facility] Meloxicam 2016-11-14 02:45:13 Yes Amaya Najam 1 tablet [facility] Meloxicam 2016-10-25 00:00:00 Yes Amaya Najam 1 tablet [facility] Aquoral 2016-10-25 00:00:00 Yes Amaya Najam as d irected [facility] No Reported Medications 2012-12-03 03:30:14 Yes (Active) [facility] Pilocarpine HCl 2011-04-06 00:00:00 Yes Amaya Najam 1 tablet [facility] Vital Signs Vital Name Observation Time Observation Value Comments Source Weight 2019-05-11 15:30:00 [facility] Height 2019-05-11 15:30:00 [facility] Temperature Oral (F) 2019-05-11 15:30:00 98.3 F [facility] Heart Rate 2019-05-11 15:30:00 [facility] Diastolic (mm Hg) 2019-05-11 15:30:00 [facility] Systolic (mm Hg) 2019-05-11 15:30:00 Adalberto rial S[facility] Systolic (mm Hg) 2018-12-15 19:00:00 Adalberto rial [facility] Temperature Oral (F) 2018-12-15 19:00:00 98.5 F [facility] Heart Rate 2018-12-15 19:00:00 [facility] Diastolic (mm Hg) 2018-12-15 19:00:00 Mem [facility] Weight 2018-12-10 14:00:00 [facility] Height 2018-12-10 14:00:00 [facility] Temperature Oral (F) 2018-12-10 14:00:00 97.7 F [facility] Heart Rate 2018-12-10 14:00:00 [facility] Diastolic (mm Hg) 2018-12-10 14:00:00 Mem o[facility] Systolic (mm Hg) 2018-12-10 14:00:00 Adalberto rial [facility] Weight 2018-08-25 16:15:00 [facility] Height 2018-08-25 16:15:00 [facility] Temperature Oral (F) 2018-08-25 16:15:00 97.9 F [facility] Heart Rate 2018-08-25 16:15:00 [facility] Diastolic (mm Hg) 2018-08-25 16:15:00 [facility] Systolic (mm Hg) 2018-08-25 16:15:00 Adalberto rial [facility] Weight 2018-07-21 19:45:00 [facility] Height 2018-07-21 19:45:00 [facility] Temperature Oral (F) 2018-07-21 19:45:00 97.4 F [facility] Heart Rate 2018-07-21 19:45:00 [facility] Diastolic (mm Hg) 2018-07-21 19:45:00 Mem o[facility] Systolic (mm Hg) 2018-07-21 19:45:00 Adalberto rial [facility] Weight 2017-06-20 16:45:00 [facility] Height 2017-06-20 16:45:00 [facility] Temperature Oral (F) 2017-06-20 16:45:00 98.3 F [facility] Heart Rate 2017-06-20 16:45:00 [facility] Diastolic (mm Hg) 2017-06-20 16:45:00 Mem [facility] Systolic (mm Hg) 2017-06-20 16:45:00 Adalberto rial S[facility] Weight 2017-06-12 16:30:00 [facility] Height 2017-06-12 16:30:00 [facility] Temperature Oral (F) 2017-06-12 16:30:00 96.9 F [facility] Heart Rate 2017-06-12 16:30:00 [facility] Diastolic (mm Hg) 2017-06-12 16:30:00 [facility] Systolic (mm Hg) 2017-06-12 16:30:00 Adalberto rial Siddh[facility] Height 2016-11-12 18:30:00 [facility] Diastolic (mm Hg) 2016-11-12 18:30:00 [facility] Systolic (mm Hg) 2016-11-12 18:30:00 Adalberto cleopatra [facility] Weight 2016-11-12 18:30:00 [facility] Height 2016-10-25 16:00:00 [facility] Diastolic (mm Hg) 2016-10-25 16:00:00 [facility] Systolic (mm Hg) 2016-10-25 16:00:00 Adalberto cleopatra [facility] Weight 2016-10-25 16:00:00 [facility] Procedures This patient has no known procedures. Plan of Care Planned Activity Planned Date Details Comments Source Future Scheduled Test 2012-12-03 03:30:14 Plan of Care [code = 1877 6-5] [facility] Encounters Start Date/Time End Date/Time En[facility] ID Source 2019-05-11 10:30:00 2019-05-11 10:30:00 Outpatient El Webber MD [place] [id number] Haile Webber MD 2019-04-28 12:38:00 2019-04-28 12:38:00 Outpatient MD JAZMIN Funes MD [place] [id number] Haile Webber MD 2019-03-19 09:41:00 2019-03-19 09:41:00 Outpatient El Webber MD PA [id number] Haile Webber MD 2018-12-15 14:00:00 2018-12-15 14:00:00 Outpatient El Webber MD PA [id number] Haile Webber MD 2018-12-10 09:00:00 2018-12-10 09:00:00 Outpatient El Webber MD PA [id number] Haile Webber MD 2018-10-06 11:55:00 2018-10-06 11:55:00 Outpatient El Webber MD [place] [id number] Haile Webber MD 2018-07-29 09:26:00 2018-08-27 23:59:00 Outpatient El Webber [id number] 2018-08-25 10:15:00 2018-08-25 10:15:00 Outpatient El WU [id number] Haile Webber MD 2018-07-21 13:45:00 2018-07-21 13:45:00 Outpatient El WU [id number] Haile Webber MD 2018-07-14 14:55:00 2018-07-14 14:55:00 Outpatient El WU [id number] Haile Webber MD 2018-06-30 09:59:00 2018-06-30 23:59:00 Outpatient Dalton Sanders M[facility]IP M[facility]IP [id number] 2018-04-28 09:22:00 2018-04-28 23:59:00 Outpatient Saturday Claribel Perez M[facility]IP M[facility]OIP [id number] 2018-02-05 14:02:00 2018-02-05 23:59:00 Outpatient Dalton Sanders M[facility] M[facility]OIP [id number] 2017-10-25 14:18:00 2017-11-23 23:59:00 Outpatient KATHERIN DYANA SRINIVASANN [id number] 2017-10-02 08:18:00 2017-10-02 23:59:00 Outpatient Dalton Sanders M[facility] M[facility]OIP [id number] 2017-07-30 16:59:00 2017-07-30 16:59:00 Outpatient El Webber MD [place] [id number] Haile Webber MD 2017-07-30 16:51:00 2017-07-30 16:51:00 Outpatient El Webber MD [place] [id number] Haile Webber MD 2017-06-20 10:45:00 2017-06-20 10:45:00 Outpatient El Webber MD PA [id number] Haile Webber MD 2017-06-12 11:30:00 2017-06-12 11:30:00 Outpatient El Webber MD [place] [id number] Haile Webber MD 2017-05-31 08:21:00 2017-05-31 23:59:00 Outpatient Matilde Burchmel MHHOIP M[facility]OIP [id number] 2017-01-03 08:31:00 2017-01-03 23:59:00 Outpatient Diya Martinez MHHOIP M[facility]OIP [id number] 2016-11-21 11:10:00 2016-11-21 23:59:00 Outpatient Jose Phillips M[facility]IP M[facility]OIP [id number] 2016-11-12 13:30:00 2016-11-12 13:30:00 Outpatient [facility] [id number] [facility] 2016-10-25 10:00:00 2016-10-25 10:00:00 [facility] [id number] 2016-08-21 08:16:00 2016-08-21 23:59:00 Outpatient Jose Phillips MHHOIP M[facility]OIP [id number] 2016-07-16 09:02:00 2016-07-16 23:59:00 Outpatient Jose Phillips MHHOIP MHHOIP [id number] 2015-02-01 08:31:00 2015-02-01 23:59:00 Outpatient Dalton Sanders MHIE MHIE [id number] 2014-07-22 09:31:00 2014-07-22 23:59:00 Outpatient Sissy Cain MHIE MHIE [id number] 2014-07-05 11:41:00 2014-07-05 23:59:00 Outpatient Sissy Cain MHIE MHIE [id number] 2012-12-02 22:30:14 2012-12-02 22:30:14 Outpatient BALJEET BALJEET [id number] Results Test Description Test Time Test Comments Results Result Comments Source CHEST SINGLE (PORTABLE) 2020-05-06 08:36:00 [place] [address] Patient Name: RONAK BAILON MR #: [id number] : 1945 Age/Sex: 74/F Req #: [id number] Adm Physician: DIOR BLOOM MD Ordered by: DIOR BLOOM MD Report #: [id number] Location: MED/SURG3 Room/Bed: [facility] Procedure: [id number] DX/CHEST SINGLE (PORTABLE) Exam Date: 05/06/20 Exam [...] CHEST SINGLE (PORTABLE) 2020-05-05 10:59:00 [place] [id number] [place] [address] Patient Name: RONAK BAILON MR #: [id number] : 1945 Age/Sex: 74/F Req #: [id number] Adm Physician: Ordered by: KOKI LEÓN DO Report #: [id number] Location: ER Room/Bed: Procedure: [id number] DX/CHEST SINGLE (PORTABLE) Exam Date: 05/05/20 Exam [...] 05/05/20 1100 COPY TO: KOKI LEÓN DO [facility] DIGITAL SCR BILAT 2019-10-12 15:44:00 [place] [address] Patient Name: RONAK BAILON MR #: [id number] : 1945 Age/Sex: 73/F Req #: [id number] Adm Physician: Ordered by: ELIER GRESHAM MD Report #: [id number] Location: MAMMO Room/Bed: Procedure: [id number] MG/MAMMOGRAPHY DIGITAL SCR BILAT Exam Date: 10/12/19 Exam Time: 1500 REPORT STATUS: Signed #[id number] - MGSCRBIL #BILATERAL DIGITAL SCREENING MAMMOGRAM WITH [...] letter of the results. DENIZ johnston/sonia:10/20/2019 11:35:19 Production Support Developer: Audrey RUSSELL)(Veronica), [facility] letter sent: Normal Exam Mammogram BI-RADS: 2 Benign Dictated By: DENIZ ALLEN MD 1135 Transcribed By: SONIA on 10/20/19 1135 COPY TO: ELIER GRESHAM MD - XR SINUSES 3 + V 2019-09-22 15:12:00 FAX: Elier Graham Jr [phone] [place]: O St: REG -- Name: RONAK BAILON [facility] : 1945 Age/S: 73/F [address] Unit #: [id number] Loc: [place] [address] Phys: Elier Gresham Jr, MD Acct: [id number] Dis Date: Status: REG CLI PHONE #: [phone] Exam Date: 09/22/2019 1223 FAX #: [phone] Reason: SINUSITIS,DYSPNEA EXAMS: CPT CODE: [id number] XR SINUSES 3 + V 09593 HISTORY: SINUSITIS,DYSPNEA TECHNIQUE: Four views of the [...] sinusitis. Remaining paranasal sinuses are clear. Location: [facility] at 1512 Reported and signed by: Boni Carpenter MD CC: Elier Gresham Jr, MD Technologist : BRUNA FUENTES RT (R) Trnscrd Date/Time/By: 09/22/2019 (1511) : By: [email or web address] Orig Print D/T: S: 09/22/2019 (1514) PAGE 1 Signed Report - XR CHEST 2 V 2019-09-22 15:02:00 FAX: Elier Graham Jr [phone] [place]: O St: REG -- Name: RONAK BAILON [facility] : 1945 Age/S: 73/F [address] Unit #: [id number] Loc: [place] [address] Phys: Elier Gresham Jr, MD Acct: [id number] Dis Date: Status: REG CLI PHONE #: [phone] Exam Date: 09/22/2019 1217 FAX #: [phone] Reason: EXAMS: CPT CODE: [id number] XR CHEST 2 V 00132 REASON FOR EXAM: Dyspnea Exam Order Date: [...] process. However the lungs are clear. Location: [facility] at 1502 Reported and signed by: Boni Carpenter MD CC: Elier Gresham Jr, MD Technologist: BRUNA FUENTES RT (R) Trnscrd Date/Time/By: 09/22/2019 (578) : By: [email or web address] Orig Print D/T: S: 09/22/2019 (0157) PAGE 1 Signed Report - XR HAND 3 + V BI 2019-09-14 12:48:00 FAX: Elier Graham Jr [phone] [place]: St: REG FAX: Jalil Michelle MD [phone] Name: RONAK BAILON [facility] [place] : 1945 Age/S: 73/F [address] Unit #: [id number] Loc: [place] [place] [address] Phys: Jalil Wyatt MD Acct: [id number] Dis Date: Status: REG RCR PHONE #: [phone] Exam Date: 09/14/2019 1147 FAX #: Reason: PIERO HAND PAIN EXAMS: CPT CODE: [id number] XR HAND 3 + [place] [address] REASON FOR EXAM: PIERO HAND PAIN EXAM ORDER DATE: 09/14/2019 11:39 AM Ordering M.Tierney: Jalil Wyatt MD PROCEDURE: - XR HAND 3 + V BI Comparison:None FINDINGS: No evidence of fracture. There is narrowing of the interphalangeal joint spaces in both hands. Soft tissues are within normal limits IMPRESSION: Mild osteoarthrosis of both hands but no acute bony abnormality. Location: [facility] at 1248 Reported and signed by: Boni Carpenter MD CC: Elier Gresham Jr, MD; Jalil Wyatt MD Technologist: RT Ruby(Gregorio) Trnscrd Date/Time/By: 09/14/2019 (1593) : By: [email or web address] Orig Print D/T: S: 09/14/2019 (1942) PAGE 1 Signed Report - CT ABD PELVIS W/CONT 2018-12-24 10:02:00 Nam e: RONAK BAILON [facility] : 1945 Age/S: 73 / F [address] Unit #: [id number] Loc: [place] [address] Phys: Michael Rubalcava MD Acct: [id number] Dis Date: Status: ADM IN PHONE #: [phone] Exam Date: 12/24/2018 0999 FAX #: [phone] Reason: SOB/UTI/PAIN EXAMS: CPT CODE: [id number] CT ABD PELVIS W/CONT 32599 HISTORY: Shortness of breath. COMPARISON: CT chest [...] 1 Signed Report (CONTINUED) Name: RONAK BAILON [facility] : 1945 Age/S: 73 / F [address] [facility] Unit #: [id number] Loc: [place] [address] Phys: Michael Rubalcava MD Acct: [id number] Dis Date: Status: ADM IN PHONE #: [phone] Exam Date: 12/24/2018 0925 F AX #: [phone] Reason: SOB/UTI/PAIN EXAMS: CPT CODE: [id number] CT ABD PELVIS W/CONT 67387 <Continued> vasculature with mild atherosclerotic change. No [...] W/CONTRAST 2018-12-24 10:02:00 Name : RONAK BAILON [facility] : 1945 Age/S: 73 / F [address] [facility] Unit #: [id number] Loc: [place] [address] Phys: Michael Rubalcava MD Acct: [id number] Dis Date: Status: ADM IN PHONE #: [phone] Exam Date: 12/24/2018924 FAX #: [phone] Reason: SOB EXAMS: CPT CODE: [id number] CT CHEST W/CONTRAST 55756 HISTORY: Shortness of breath. COMPARISON: CT chest [...] 1 Signed Report (CONTINUED) Name: RONAK BAILON [facility] : 1945 Age/S: 73 / F [address] [facility] Unit #: [id number] Loc: [place] [address] Phys: Michael Rubalcava MD Acct: [id number] Dis Date: Status: ADM IN PHONE #: [phone] Exam Date: 12/24/2018 0925 F AX #: [phone] Reason: SOB EXAMS: CPT CODE: [id number] CT CHEST W/CONTRAST 41315 <Continued> vasculature with mild atherosclerotic change. No [...] CA) 8.5 mg/dL 8.5-10.1 N BASIC METABOLIC [id number] 08:56:00* Test Item Value Reference Range Interpretation [...] code = CA) mg/dL 8.5-10.1 CBC W/AUTO [id number] 08:30:00* Test Item Value Reference Range Interpretation [...] into account the patients history. COMPREHENSIVE METABOLIC [id number] 08:27:00* Test Item Value Reference Range Interpretation [...] due to change in reagent. CBC W/AUTO [id number] 08:14:00* Test Item Value Reference Range Interpretation [...] (test code = MDIFF) NO COMPREHENSIVE METABOLIC [id number] 13:06:00* Test Item Value Reference Range Interpretation [...] due to change in reagent. COMPREHENSIVE METABOLIC [id number] 13:00:00* Test Item Value Reference Range Interpretation [...] code = ALKP) IUnit/L 45-117 CBC W/AUTO [id number] 12:44:00* Test Item Value Reference Range Interpretation [...] REQUIRED (test code = MDIFF) NO URINALYSIS [id number] 02:46:00* Test Item Value Reference Range Interpretation [...] #/LPF FEW Urine Source? Clean CatchB-TYPE NATRIURETIC [id number] 01:44:00* Test Item Value Reference Range Interpretation [...] into account the patients history. BASIC METABOLIC [id number] 01:35:00* Test Item Value Reference Range Interpretation [...] CA) 8.1 mg/dL 8.5-10.1 L HEPATIC FUNCTION [id number] 01:35:00* Test Item Value Reference Range Interpretation [...] reference range due to change in reagent. [id number] 01:35:00* Test Item Value Reference Range Interpretation Comments LIPASE (test code = LIP) 140 U/L 73.0-393.0 N [id number] 01:35:00* Test Item Value Reference Range Interpretation Comments TROPONIN-I (test code = TROPI) 0.040 ng/mL 0-0.045 N PROTHROMBIN [id number] 01:29:00* Test Item Value Reference Range Interpretation [...] (2.5-3.5) IS PATIENT ON ANTICOAGULANTS? NTHROMBOPLASTIN TIME [id number] 01:29:00* Test Item Value Reference Range Interpretation Comments THROMBOPLASTIN TIME PARTIAL (test code = PTT) 32.4 seconds 25.0-36. 5 N IS PATIENT ON ANTICOAGULANTS? NBASIC METABOLIC [id number] 01:28:00* Test Item Value Reference Range Interpretation [...] code = CA) mg/dL 8.5-10.1 HEPATIC FUNCTION [id number] 01:28:00* Test Item Value Reference Range Interpretation [...] TOTAL (test code = ALKP) IUnit/L 45-117 [id number] 01:28:00* Test Item Value Reference Range Interpretation Comments LIPASE (test code = LIP) U/L 73.0-393.0 [id number] 01:28:00* Test Item Value Reference Range Interpretation Comments TROPONIN-I (test code = TROPI) ng/mL 0-0.045 LACTIC [id number] 01:28:00* Test Item Value Reference Range Interpretation Comments LACTIC ACID (test code = LACT) 1.2 mmol/L 0.4-1.9 N CBC W/AUTO [id number] 01:09:00* Test Item Value Reference Range Interpretation [...] K/mm3 0.0-0.1 N - XR CHEST 1 [id number] 23:25:00 FAX: Sunni De Dios MD [phone] [place]: St: REG Name: RONAK SHANNON [facility] : [birth year] Age/S: 73/F [address] [facility] Unit #: [id number] Loc: [place] [address] Phys: Sunni De Dios MD Acct: [id number] Dis Date: Status: REG ER PHONE #: [phone] Exam Date: 12/19/20182316 FAX #: [phone] Reason: CODE SEPSIS EXAMS: CPT CODE: [id number] XR CHEST 1 V 56240 - XR CHEST 1 V, 12/19/2018 10:53 [...] may reflect a small airways process at 0794 Reported and signed by: Sandra Núñez M.D. CC: Sunni De Dios MD Technologist: Ericka Mcintyre Trnscrd Date/Time/By: 12/19/2018 (6157) : By: [email or web address] Print D/T: S: 12/19/2018 (1123) PAGE 1 Signed Report CHEST 2 VIEWS [place] [id number] [place] [address] Patient Name: RONAK BAILON MR #: [id number] : 1945 Age/Sex: 72/F Req #: [id number] Adm Physician: Ordered by: WIBLER RAMOS MD Report #: [id number] Location: OR Room/Bed: Procedure: [id number] DX/CHEST 2 VIEWS Exam Date: 0 11/11/17 [...] 12:45 Dictated By: SONNY LATIF MD 1 728 Transcribed By: CHASE on 11/11/17 1246 COPY TO: WILBER RAMOS MD RENAL SCAN W/LASIX [place] [address] Patient Name: RONAK BAILON MR #: [id number] : 1945 Age/Sex: 71/F Req #: [id number] Adm Physician: Ordered by: CHASE GIBBONS MD Report #: [id number] Location: [place] Room/Bed: Procedure: [id number] NM/RENAL SCAN W/LASIX Exam Date: 06/14/17 Exam [...] TO: CHASE GIBBONS MD CT ABDOMEN/PELVIS WOW [place] [address] Patient Name: RONAK BAILON MR #: [id number] : 1945 Age/Sex: 71/F Req #: [id number] Adm Physician: Ordered by: CHASE GIBBONS MD Report #: [id number] Location: CT Room/Bed: Procedure: CT/CT ABDOMEN/PELVIS WOW [...]
--- NOTE | 2020-05-06 12:09 | NUR ---
OGDEN LETTER EXPLAINED TO PT OVER THE PHONE. PT VERBALIZED UNDERSTANDING. OGDEN LETTER SIGNED BY CM AND BEDSIDE RN, ALEXANDRA. COPY TO PT AND COPY TO CHART.
--- NOTE | 2020-05-06 12:11 | NUR ---
OBS DAY 1. PT DISCUSSED IN MDR. NO O2, CXR WNL, LAB WNL. DISPO HOME.
[2020-05-06] MEDS: AZITHROMYCIN 500MG/NS 250 ML 250 ML IV SCH (12:26)
[2020-05-06] MEDS: ENOXAPARIN SOD INJ 40 MG/0.4 ML SYR SC SCH (12:26)
--- NOTE | 2020-05-06 12:39 | NUR ---
CONSULT CALLED TO DR. CARRIZALES- SPOKE WITH ALEISHA @[phone]
[2020-05-06] MEDS: CEFUROXIME AXETIL 250 MG TAB PO SCH ×2 (12:54→20:47)
[2020-05-06] MEDS ORDERED: ZOLPIDEM TARTRATE 5 MG TAB PO PRN (13:15)
[2020-05-06] MEDS ORDERED: SODIUM CHLORIDE 0.9% 1000ML 1,000 ML IV ONE (13:15)
--- NOTE | 2020-05-06 13:46 | Consultation ---
DATE OF CONSULTATION: Pulmonary Critical Care Consultation CHIEF COMPLAINT: Dizziness and weakness. HISTORY OF PRESENT ILLNESS: The patient is a 74-year-old woman. She reports feeling ill for about 10 to 12 days. She has had some dizziness as well as some weakness. Her main complaint is loss of appetite. She also noted some nausea and possibly some vomiting. She does not complain of any chest pain. She is not having cough. She denies dyspnea. PAST SURGICAL HISTORY: Status post section. PAST MEDICAL HISTORY: 1. The patient specifically denies any asthma or respiratory problems. 2. The patient specifically denies any cholelithiasis, ulcers, or other gastrointestinal illness. 3. The patient specifically denies any diabetes. 4. No hypertension. SOCIAL HISTORY: The patient is not a smoker. She is not a drinker. FAMILY HISTORY: Noncontributory. ALLERGIES: NO KNOWN DRUG ALLERGIES. REVIEW OF SYSTEMS: She is not having fevers now, although she may have had some fevers earlier. The patient notes some dizziness and some weakness. She denies chest pain. She has no dyspnea. She has no cough. She does have some nausea, possibly some vomiting. She has no leg edema. PHYSICAL EXAMINATION: VITAL SIGNS: The patient is afebrile. The blood pressure is 125/57 and saturation is 98%. HEENT: Shows no facial swelling or erythema. LYMPHATIC: Shows no submandibular, cervical, or supraclavicular adenopathy. CARDIAC: Reveals regular rate and rhythm with normal S1 and S2. LUNGS: Auscultation of lungs reveals clear breath sounds bilaterally. There is no wheezing. ABDOMEN: Soft and nontender. There is no rebound or guarding. EXTREMITIES: Show no leg edema or calf tenderness. There is no cyanosis or clubbing. SKIN: Shows no rashes. NEUROLOGICAL: Shows no focal abnormalities. LABORATORY DATA: BUN to creatinine ratio is normal. Other electrolytes are within normal limits. Hemoglobin is 11 and the white blood cell count is 4.3. The platelet count is 212. RADIOGRAPHIC DATA: Chest x-ray shows no active disease. IMPRESSION: 1. COVID-19 and viral illness. 2. Viral gastroenteritis. 3. Anemia, unspecified. 4. Prior history of neck pain. PLAN: 1. Judicious use of IV fluids. 2. Antiemetics. 3. The patient does not require dexamethasone at this time because she has no respiratory symptoms and is not requiring any oxygen. 4. The patient is not a candidate for remdesivir because she is not having any respiratory symptoms. 5. Possible discharge home tomorrow. MD KACIE Babin/EVELINA /[id number]
--- NOTE | 2020-05-06 17:03 | NUR ---
this infectious disease consultation patient seen and examined chart reviewed reason for consultation [facility]id [facility] (patient patient seenhe patient is a 74-year-old woman. She reports feeling ill for about 10 to 12 days. She has had some dizziness as well as some weakness. Her main complaint is loss of appetite. She also noted some nausea and possibly some vomiting. the patient is telling me she was tested twice in the last couple months for cope with all negative but when she came this time she was tested as positive she denies any shortness of breath I did ask the nurse to check her pulse oximetry while she was walking also to notify me if she drop her O2 sats currently at 96% overall review of system is negative at the present time She does not complain of any chest pain. She is not having cough. She denies dyspnea. PAST SURGICAL HISTORY: Status post section. PAST MEDICAL HISTORY: 1. The patient specifically denies any asthma or respiratory problems. 2. The patient specifically denies any cholelithiasis, ulcers, or other gastrointestinal illness. 3. The patient specifically denies any diabetes. 4. No hypertension. SOCIAL HISTORY: The patient is not a smoker. She is not a drinker. FAMILY HISTORY: Noncontributory. ALLERGIES: NO KNOWN DRUG ALLERGIES. REVIEW OF SYSTEMS: She is not having fevers now, although she may have had some fevers earlier. The patient notes some dizziness and some weakness. She denies chest pain. She has no dyspnea. She has no cough. She does have some nausea, possibly some vomiting. She has no leg edema. PHYSICAL EXAMINATION: VITAL SIGNS: The patient is afebrile. The blood pressure is 125/57 and saturation is 98%. HEENT: Shows no facial swelling or erythema. LYMPHATIC: Shows no submandibular, cervical, or supraclavicular adenopathy. CARDIAC: Reveals regular rate and rhythm with normal S1 and S2. LUNGS: Auscultation of lungs reveals clear breath sounds bilaterally. There is no wheezing. ABDOMEN: Soft and nontender. There is no rebound or guarding. EXTREMITIES: Show no leg edema or calf tenderness. There is no cyanosis or clubbing. SKIN: Shows no rashes. NEUROLOGICAL: Shows no focal abnormalities. LABORATORY DATA: BUN to creatinine ratio is normal. Other electrolytes are within normal limits. Hemoglobin is 11 and the white blood cell count is 4.3. The platelet count is 212. RADIOGRAPHIC DATA: Chest x-ray shows no active disease. IMPRESSION: 1. COVID-19 and viral illness.not pneumonia is not hypoxemic there is really no treatment at the present time does continue with supportive care patient to be in isolation for 10 days since the onset of symptoms there is really no need to repeat PCR discussed with the patient 2. Viral gastroenteritis.supportive care with Pepto-Bismol IV fluid 3. Anemia, unspecified. 4. Prior history of neck pain. from infectious disease point of view there is no need for antibiotic care could be discharged home in the morning she continued to do well agree with IV fluids and supportive care will discuss with the medical team
--- NOTE | 2020-05-06 17:32 | NUR ---
CALL PLACED OUT TO DR. ANTOINE REGARDING CLARIFICATION ON LAB ORDER- AWAITING CALLBACK.
--- NOTE | 2020-05-06 19:12 | NUR ---
PATIENT IS IN STABLE CONDITION WITH NO S/S OF RESPIRATORY DISTRESS. NO PAIN VOICED. IV FLUIDS INFUSING. TELEMETRY APPLIED. CALL LIGHT IS WITHIN REACH, PATIENT INSTRUCTED TO CALL FOR ASSISTANCE NEEDED. REPORT GIVEN TO ONCOMING NURSE.
[2020-05-06] MEDS: TIZANIDINE HCL 4 MG TAB PO SCH (20:47)
--- NOTE | 2020-05-06 23:51 | NUR ---
Progress note DATE OF SERVICE 05/06/20 Subjective: The patient feels extremely weak. The patient denies any chest pain no shortness of breath no abdominal pain no nausea no vomiting. No urinary symptoms. No fever no chills. Physical exam: The reveal a patient in no distress. Vital signs: Blood pressure 150/63, respiration 14, pulse 55, temperature 98.8 Objective: Patient alert oriented person time place HEENT: No gross abnormalities Neck: Supple no JVD Lungs: Clear to auscultation Heart: Regular rate and rhythm, no murmurs no gallops Abdomen: Soft non tender, no guarding. Extremities: No edema Neurologic: Alert oriented 3, no focal weakness. Psychiatrist: Normal mood, normal judgment. Skin: No rashes Assessment: Dizziness Generalized weakness Viral gastroenteritis Anemia, unspecified Recently treated UTI History of neck pain Positive Covid 19 Plan of care: 05/05/2020 Admitted the patient for observation Follow-up labs. Consult ID. Inflammatory markers 05/06/2020 Continue present care. Keep patient hydrated. Have patient ambulate. ID evaluation noted. Stable from the standpoint. Reevaluate in a.m.
[2020-05-07] VITALS (8 sets, daily range): BP systolic 125–148; BP diastolic 52–71
--- NOTE | 2020-05-07 07:00 | NUR ---
RECEIVED PATIENT AWAKE RESTING IN BED AT THIS TIME. NO S/S OF DISTRESS. BED LOW, WHEELS LOCKED, SIDE RAILS X2. CALL LIGHT IN REACH WILL CONTINUE TO MONITOR PATIENT.
[2020-05-07] MEDS: ENOXAPARIN SOD INJ 40 MG/0.4 ML SYR SC SCH (07:50)
[2020-05-07] MEDS: ONDANSETRON HCL INJ 2MG/ML 2ML 2 MG/ML VIAL IV PRN ×2 (07:50→21:13)
[2020-05-07] MEDS: HYDROCODONE/APAP 5MG-325MG TAB PO PRN ×2 (07:50→21:14)
[2020-05-07] MEDS: CEFUROXIME AXETIL 250 MG TAB PO SCH ×2 (07:50→21:06)
[2020-05-07] MEDS: MULTIVITAMINS/MINERALS TAB PO SCH (07:50)
--- NOTE | 2020-05-07 11:30 | NUR ---
PROGRESS NOTE Subjective: Patient simulated. Patient feels extremely debilitated. States she cannot from her bed. Review of system: Constitutional: Feels extremely debilitated. HEENT: No headaches. Cardiovascular: Denies chest pain, palpitations, PND, swelling of the legs. Respiratory: No Cough, hemoptysis or SOB GI: Denies Nausea/V/D, hematemesis, melena. : Denies Hematuria, Dysuria, Frequency Musculoskeletal: Denies joint pain Neuro: No focal weakness Psych: No anxiety or depression. Skin: No rashes, Itching, Hives Physical exam: Patient alert oriented person time place the patient was in no distress. Vital signs blood pressure 126/52, respiration 18, pulse 56, temperature 99.9 T-max 100.0 HEENT: No gross abnormalities Neck: Supple no JVD Lungs: Clear to auscultation Heart: Regular rate and rhythm, no murmurs no gallops Abdomen: Soft non tender, no guarding. Extremities: No edema Neurologic: Alert oriented 3, no focal weakness. Psychiatrist: Normal mood, normal judgment. Skin: No rashes Lab data: As of 05/06/2020 Sodium 136, potassium 4.8, chloride 103, CO2 26, BUN 11.8, creatinine 0.81 CBC: Did reveal Hemoglobin 11.0, WBC 4.29, platelet count 212,000 D-dimer 354 Assessment: Dizziness Generalized weakness Viral gastroenteritis Anemia, unspecified Recently treated UTI History of neck pain Positive Covid 19 Plan of care: 05/05/2020 Admitted the patient for observation Follow-up labs. Consult ID. Inflammatory markers 05/06/2020 Continue present care. Keep patient hydrated. Have patient ambulate. ID evaluation noted. Stable from the standpoint. Reevaluate in a.m. 05/07/2020 Continue hydration. PT OT evaluation. Monitor O2 with ambulation
[2020-05-07] MEDS: AZITHROMYCIN 500MG/NS 250 ML 250 ML IV SCH (11:35)
--- NOTE | 2020-05-07 17:11 | Progress Note ---
DATE: SUBJECTIVE: Ms. Isaac is doing much better. She is still fatigued. REVIEW OF SYSTEMS: Otherwise unremarkable. PHYSICAL EXAMINATION: GENERAL: She is currently alert and oriented. VITAL SIGNS: Stable, currently afebrile. HEENT: She is not icteric. NECK: Supple. CHEST: Clear. HEART: S1 and S2. ABDOMEN: Soft. Bowel sounds present. EXTREMITIES: No edema. SKIN: No rash. IMPRESSION: COVID-19, dizziness, dehydration, and gastroenteritis, overall is improving. The patient could be discharged home. No treatment. No antibiotic. Just supportive care, push p.o. fluid, and diet as tolerated. To see me back in 2 weeks. No need to recheck PCR. The patient is infectious for 10 days after onset of illness. Otherwise, she is doing good. MD HANG Ortiz/EVELINA /[id number]
[2020-05-07] MEDS: TIZANIDINE HCL 4 MG TAB PO SCH (21:13)
--- NOTE | 2020-05-07 21:33 | NUR ---
Pt transferred to room 177 via wheelchair. Pt alert and awake. No needs at this time. Report given to KATIE Schulz prior to transfer. Care transferred.
--- NOTE | 2020-05-07 22:29 | NUR ---
Received pt to unit via w/c a/o x4. Pt nauseated and dr pierson noted. Assisted to bed, then to bathroom. Pt assisted back to bed with nausea appearing to resolve. Pt with no other c/o at this time, denies discomfort, no s/sx of acute distress noted. Bed in low and locked position with call gómez and personal items within reach. Will cont to monitor pt.
[2020-05-08] VITALS (7 sets, daily range): BP systolic 106–162; BP diastolic 51–65
[2020-05-08] MEDS: ONDANSETRON HCL INJ 2MG/ML 2ML 2 MG/ML VIAL IV PRN (04:30)
--- NOTE | 2020-05-08 06:56 | NUR ---
DAY 3 OBSERVATION. MESSAGE LEFT FOR DR. ANTOINE 05/07 REGARDING THIS, AND DC PLAN? NO REPLY. PT HAS BEEN MOVED TO THE COVID UNIT. WILL ATTEMPT TO SPEAK WITH DR. ANTOINE AGAIN TODAY REGARDING DC PLAN.
--- NOTE | 2020-05-08 07:30 | NUR ---
PATIENT ASSISTED TO THE BED SIDE COMMODE AND BACK TO BED, NO S/S OF DISTRESS NOTED. BED IN LOWER POSITION, CALL LOIGHT AT REACH, INSTRUCTED TO CALL FOR ASSISTANCE NEEDED.
--- NOTE | 2020-05-08 08:39 | NUR ---
MET WITH RAMONE WILSON, AND STATED ID DOCUMENTED THAT PT CAN DC HOME. RAMONE WILSON STATED PT DOES NOT LOOK WELL AND IS VERY WEAK. RAMONE WILSON STATED SHE WILL TALK TO DR. ANTOINE AND REQUEST INPATIENT ORDER.
[2020-05-08] MEDS: MULTIVITAMINS/MINERALS TAB PO SCH (09:17)
[2020-05-08] MEDS: ENOXAPARIN SOD INJ 40 MG/0.4 ML SYR SC SCH (09:17)
[2020-05-08] MEDS: CEFUROXIME AXETIL 250 MG TAB PO SCH ×2 (09:17→20:07)
--- NOTE | 2020-05-08 11:20 | NUR ---
PATIENT IN BED RESTING WITH NO S/S OF DISTRESS. BED IN LOWER POSITION, CALL LIGHT AT REACH.
[2020-05-08] MEDS: AZITHROMYCIN 500MG/NS 250 ML 250 ML IV SCH (13:00)
--- NOTE | 2020-05-08 14:14 | Progress Note ---
DATE: SUBJECTIVE: The patient is complaining of nausea and vomiting as well as some dizziness. She does not have dyspnea or cough. PHYSICAL EXAMINATION: VITAL SIGNS: The blood pressure is 162/61 and the saturation is 98% on room air. The pulse is 62. Respiratory rate is 18. HEENT: Shows no facial swelling or erythema. LYMPHATIC: Shows no submandibular, cervical, or supraclavicular adenopathy. CARDIAC: Reveals regular rate and rhythm. Normal S1, S2. LUNGS: Auscultation of lungs reveal rhonchorous breath sounds bilaterally. There is no wheezing. ABDOMEN: Soft and nontender. There is no rebound or guarding. EXTREMITIES: Shows no leg edema or calf tenderness. There is no cyanosis or clubbing. SKIN: Shows no rashes. NEUROLOGICAL: Shows no focal abnormalities. LABORATORY DATA: CBC and CMP from this morning are pending. IMPRESSION: 1. Viral gastroenteritis secondary to COVID-19 infection. 2. Dizziness. 3. Viral pneumonia and COVID-19. PLAN: 1. Continue antiemetics. 2. Hydration as needed. 3. Continue to monitor oxygen saturation. 4. Await repeat labs and CBC. MD KACIE Babin/EVELINA /[id number]
--- NOTE | 2020-05-08 14:46 | NUR ---
infectious disease progress note patient seen and examined chart reviewed the patient seems to be getting better no new complaints. Ms. Isaac is doing much better. She is still fatigued. REVIEW OF SYSTEMS: Otherwise unremarkable. PHYSICAL EXAMINATION: GENERAL: She is currently alert and oriented. VITAL SIGNS: Stable, currently afebrile. HEENT: She is not icteric. NECK: Supple. CHEST: Clear. HEART: S1 and S2. ABDOMEN: Soft. Bowel sounds present. EXTREMITIES: No edema. SKIN: No rash. IMPRESSION: COVID-19, dizziness, dehydration, and gastroenteritis, overall is improving. The patient could be discharged home. No treatment. No antibiotic. Just supportive care, push p.o. fluid, and diet as tolerated. To see me back in 2 weeks. No need to recheck PCR. The patient is infectious for 10 days after onset of illness. Otherwise, she is doing good. stable from infectious disease point of view
[2020-05-08] MEDS: ACETAMINOPHEN 325 MG TAB PO PRN (16:10)
--- NOTE | 2020-05-08 16:11 | NUR ---
PATIENT NOTED WITH ELEVATED TEMPERATURE, MD NOTIFIED. NEW ORDER RECEIVED AND IMPLEMENTED. WILL CLOSELY MONITOR.
[2020-05-08 17:46] LABS: BASOPHILS % 0.2 % (0.0-1.0); HEMATOCRIT 33.1 % (34.2-44.1); LYMPHOCYTES # (AUTO) 1.7 (1.0-3.2); LYMPHOCYTES % 36.6 % (18.0-39.1); MEAN CORPUSCULAR HEMOGLOBIN 32.1 pg (28-32); MEAN CORPUSCULAR HGB CONC 33.2 g/dL (31-35); MEAN CORPUSCULAR VOLUME 96.5 fL (81-99); MONOCYTES # (AUTO) 0.3 (0.2-0.8); MONOCYTES % 7.3 % (4.4-11.3); NEUTROPHILS # (AUTO) 2.6 (2.1-6.9); NEUTROPHILS % 55.5 % (38.7-80.0); PLATELET COUNT 214 x10e3/uL (140-360); RED BLOOD COUNT 3.43 x10e6/uL (3.6-5.1); RED CELL DISTRIBUTION WIDTH 12.4 % (11.7-14.4)
[2020-05-08 17:59] LABS: ALANINE AMINOTRANSFERASE 9 IU/L (0-55); ALBUMIN 3.6 g/dL (3.5-5.0); ALBUMIN/GLOBULIN RATIO 1.3 (0.8-2.0); ALKALINE PHOSPHATASE 48 IU/L (40-150); ANION GAP 13.7 mmol/L (8-16); BLOOD UREA NITROGEN 8 mg/dL (7-26); BUN/CREATININE RATIO 10 (6-25); CALCIUM 8.3 mg/dL (8.4-10.2); CARBON DIOXIDE 23 mmol/L (22-29); CHLORIDE 102 mmol/L (98-107); CREATININE, SERUM 0.79 mg/dL (0.57-1.11); EST GLOMERULAR FILTRATION RATE > 60 ML/MIN (60-); GLUCOSE 83 mg/dL (74-118); POTASSIUM 4.7 mmol/L (3.5-5.1); SODIUM 134 mmol/L (136-145)
--- NOTE | 2020-05-08 18:33 | Diagnostic Imaging Report ---
EXAMINATION: CHEST SINGLE (PORTABLE) INDICATION: COVID 19 COMPARISON: Multiple prior chest x-ray examinations most recent dated 05/06/2020. FINDINGS: AP view TUBES and LINES: None. . LUNGS/PLEURA: Faint bilateral hazy opacities have slightly worsened could be due to multifocal pneumonia. There is no pleural effusion or pneumothorax. HEART AND MEDIASTINUM: The cardiomediastinal silhouette is unremarkable. BONES AND SOFT TISSUES: No acute osseous lesion. Soft tissues are unremarkable. UPPER ABDOMEN: No free air under the diaphragm. IMPRESSION: Faint bilateral hazy opacities have slightly worsened could be due to multifocal pneumonia. Signed by: Matthew Esquivel MD on 05/08/2020 6:30 PM
--- NOTE | 2020-05-08 19:30 | NUR ---
Progress note Subjective: The patient feels better. She feels stronger. Some shortness of breath. No chest pain, no abdominal pain, no nausea, no vomiting, no diarrhea. It was felt that she was relatively stable however follow-up imaging studies did reveal faint bilateral hazy opacities which have slightly worsened Review of system: Constitutional: Feels extremely debilitated. HEENT: No headaches. Cardiovascular: Denies chest pain, palpitations, PND, swelling of the legs. Respiratory: No Cough, hemoptysis or SOB GI: Denies Nausea/V/D, hematemesis, melena. : Denies Hematuria, Dysuria, Frequency Musculoskeletal: Denies joint pain Neuro: No focal weakness Psych: No anxiety or depression. Skin: No rashes, Itching, Hives Physical exam: Patient alert oriented person time place the patient was in no distress. Vital signs blood pressure 126/52, respiration 18, pulse 56, temperature 99.9 T-max 100.0 HEENT: No gross abnormalities Neck: Supple no JVD Lungs: Clear to auscultation Heart: Regular rate and rhythm, no murmurs no gallops Abdomen: Soft non tender, no guarding. Extremities: No edema Neurologic: Alert oriented 3, no focal weakness. Psychiatrist: Normal mood, normal judgment. Skin: No rashes Lab data: As of 05/08/2020 CBC revealed below 11.0, WBC 4.64, platelet count 214,000 Chemistry profile revealed sodium 134, potassium 4.7, chloride 102, CO2 23, BUN 8, creatinine 0.79 Assessment: Multifocal pneumonia COVID-19 viral infection Generalized weakness Dizziness Viral gastroenteritis Anemia, unspecified Recently treated UTI History of neck pain Positive Covid 19 Plan of care: 05/05/2020 Admitted the patient for observation Follow-up labs. Consult ID. Inflammatory markers 05/06/2020 Continue present care. Keep patient hydrated. Have patient ambulate. ID evaluation noted. Stable from the standpoint. Reevaluate in a.m. 05/07/2020 Continue hydration. PT OT evaluation. Monitor O2 with ambulation 05/08/2020 Monitor O2 saturation. Follow-up labs. Hydration as needed. Continue antiemetics. Patient condition discussed with ID Dr. Holt. Discussed with [facility]cer staff.
--- NOTE | 2020-05-08 20:05 | NUR ---
PATIENT RESTING IN BED, NO SIGNS OF RESPIRATORY DISTRESS NOTED. IV ANTIBIOTICS ARE RUNNING AT ORDERED RATE AND PATIENT VOICES NO PAIN AT THIS TIME. BED IS IN LOWEST POSITION, BOTH SIDE RAILS ARE UP, CALL LIGHT IS WITHIN EASY REACH, WILL CONTINUE TO MONITOR.
[2020-05-08] MEDS: TIZANIDINE HCL 4 MG TAB PO SCH (20:07)
[2020-05-08] MEDS: CEFTRIAXONE SOD 1 GM/NS 50 ML 50 ML IV SCH (20:07)
[2020-05-09] VITALS (9 sets, daily range): BP systolic 115–142; BP diastolic 54–77
[2020-05-09] MEDS: ACETAMINOPHEN 325 MG TAB PO PRN ×3 (05:00→23:39)
[2020-05-09 06:14] LABS: BASOPHILS % 0.2 % (0.0-1.0); EOSINOPHILS % 0.2 % (0.0-6.0); HEMATOCRIT 32.7 % (34.2-44.1); HEMOGLOBIN 10.8 g/dL (12.0-16.0); LYMPHOCYTES # (AUTO) 1.4 (1.0-3.2); LYMPHOCYTES % 24.5 % (18.0-39.1); MEAN CORPUSCULAR HEMOGLOBIN 32.1 pg (28-32); MEAN CORPUSCULAR VOLUME 97.3 fL (81-99); MONOCYTES # (AUTO) 0.3 (0.2-0.8); MONOCYTES % 5.8 % (4.4-11.3); NEUTROPHILS # (AUTO) 4.1 (2.1-6.9); PLATELET COUNT 201 x10e3/uL (140-360); RED BLOOD COUNT 3.36 x10e6/uL (3.6-5.1); RED CELL DISTRIBUTION WIDTH 12.6 % (11.7-14.4)
[2020-05-09 06:23] LABS: ANION GAP 15.3 mmol/L (8-16); BLOOD UREA NITROGEN 9 mg/dL (7-26); BUN/CREATININE RATIO 12 (6-25); CARBON DIOXIDE 23 mmol/L (22-29); CHLORIDE 100 mmol/L (98-107); CREATININE, SERUM 0.76 mg/dL (0.57-1.11); EST GLOMERULAR FILTRATION RATE > 60 ML/MIN (60-); GLUCOSE 105 mg/dL (74-118); POTASSIUM 4.3 mmol/L (3.5-5.1); SODIUM 134 mmol/L (136-145)
--- NOTE | 2020-05-09 07:00 | NUR ---
RECEIVED SHIFT CHANGE REPORT FROM INJECTION MOLDING MACHINE OPERATOR RN. PT DENIES NEEDS AT THIS TIME.
[2020-05-09] MEDS: CEFUROXIME AXETIL 250 MG TAB PO SCH ×2 (08:10→19:42)
[2020-05-09] MEDS: MULTIVITAMINS/MINERALS TAB PO SCH (08:10)
[2020-05-09] MEDS: ENOXAPARIN SOD INJ 40 MG/0.4 ML SYR SC SCH (08:10)
[2020-05-09] MEDS ORDERED: LACTATED RINGER'S 1,000 ML INJ ONE (12:30)
[2020-05-09] MEDS ORDERED: MAGNESIUM HYDROXIDE 30 ML UDC PO ONE (12:30)
--- NOTE | 2020-05-09 13:28 | Progress Note ---
DATE: SUBJECTIVE: The patient reports loss of appetite. She has been constipated. She is not complaining of fevers. She has no chest pain. PHYSICAL EXAMINATION: VITAL SIGNS: The blood pressure is 115/55, saturation is 96%, and pulse is 60. HEENT: Shows no facial swelling or erythema. LYMPHATIC: Shows no submandibular, cervical, or supraclavicular adenopathy. CARDIAC: Reveals regular rate and rhythm. Normal S1, S2. LUNGS: Auscultation of lungs shows decreased breath sounds at the bases. There is no wheezing. ABDOMEN: Soft, nontender. There is no rebound or guarding. EXTREMITIES: Shows no leg edema or calf tenderness. There is no cyanosis or clubbing. SKIN: Shows no rashes. LABORATORY DATA: Sodium is 134. BUN to creatinine ratio is normal. Other electrolytes are within normal limits. White blood cell count is 5.8, hemoglobin is 10.8, and the platelet count is 201. IMPRESSION: 1. Viral pneumonia and COVID-19 infection. 2. Viral gastroenteritis. 3. Constipation. PLAN: 1. IV hydration. 2. Antiemetics. 3. Laxative. 4. Discharge home today. Ruiz Pham MD LM/EVELINA /[id number]
--- NOTE | 2020-05-09 19:00 | NUR ---
Resumed care of patient. Patient awake and resting in bed, respirations even and unlabored on room air, no s/s of distress or c/o pain at this time. Bed locked and in lowest position, side rails upx2, alarm on, call light placed within reach. Patient instructed to call for assistance if needed, verbalized understanding. All safety measures in place.
[2020-05-09] MEDS: CEFTRIAXONE SOD 1 GM/NS 50 ML 50 ML IV SCH (19:42)
[2020-05-09] MEDS: TIZANIDINE HCL 4 MG TAB PO SCH (19:43)
--- NOTE | 2020-05-09 20:50 | NUR ---
Progress note Subjective: The patient feels better. No chest pain, no abdominal pain, no nausea, no vomiting, no diarrhea. Review of system: Constitutional: Feels extremely debilitated. HEENT: No headaches. Cardiovascular: Denies chest pain, palpitations, PND, swelling of the legs. Respiratory: No Cough, hemoptysis or SOB GI: Denies Nausea/V/D, hematemesis, melena. : Denies Hematuria, Dysuria, Frequency Musculoskeletal: Denies joint pain Neuro: No focal weakness Psych: No anxiety or depression. Skin: No rashes, Itching, Hives Physical exam: Patient alert oriented person time place the patient was in no distress. Vital signs: Temperature 99.5, pulse 55, respirations 17, blood pressure 142/64, pulse ox 98% on room air. HEENT: No gross abnormalities Neck: Supple no JVD Lungs: Clear to auscultation Heart: Regular rate and rhythm, no murmurs no gallops Abdomen: Soft non tender, no guarding. Extremities: No edema Neurologic: Alert oriented 3, no focal weakness. Psychiatrist: Normal mood, normal judgment. Skin: No rashes Lab data: 05/09/2020 Hemoglobin 10.8, hematocrit 32.7. Sodium 134, calcium 8.0. Assessment: Multifocal pneumonia COVID-19 viral infection Generalized weakness Dizziness Viral gastroenteritis Anemia, unspecified Recently treated UTI History of neck pain Positive Covid 19 Plan of care: 05/05/2020 Admitted the patient for observation Follow-up labs. Consult ID. Inflammatory markers 05/06/2020 Continue present care. Keep patient hydrated. Have patient ambulate. ID evaluation noted. Stable from the standpoint. Reevaluate in a.m. 05/07/2020 Continue hydration. PT OT evaluation. Monitor O2 with ambulation. 05/08/2020 It was felt that she was relatively stable however follow-up imaging studies did reveal faint bilateral hazy opacities which have slightly worsened. Continue PT/OT, monitor O2 sats, Follow-up labs. Hydration as needed. Continue antiemetics. Patient condition discussed with ID Dr. Holt. Discussed with nursing staff. 05/09/2020 Stable vital signs, stable H&H. We will continue hydration, antiemetics, planning discharge today.
--- NOTE | 2020-05-09 23:19 | NUR ---
Dr. Melara here to see patient. Per MD plan to discharge patient home in the morning.
[2020-05-10] VITALS (8 sets, daily range): BP systolic 118–148; BP diastolic 58–68
[2020-05-10] MEDS: MULTIVITAMINS/MINERALS TAB PO SCH (08:31)
[2020-05-10] MEDS: ENOXAPARIN SOD INJ 40 MG/0.4 ML SYR SC SCH (08:31)
[2020-05-10] MEDS: CEFUROXIME AXETIL 250 MG TAB PO SCH ×2 (08:31→20:21)
[2020-05-10] MEDS: ACETAMINOPHEN 325 MG TAB PO PRN ×2 (12:14→20:21)
--- NOTE | 2020-05-10 12:28 | Progress Note ---
DATE: SUBJECTIVE: Ms. Isaac is feeling better today, there are no complaints. REVIEW OF SYSTEMS: HEENT: Negative. PULMONARY: Negative. CARDIAC: Negative. PHYSICAL EXAMINATION: GENERAL: She is currently alert and oriented. VITAL SIGNS: Stable, currently afebrile. HEENT: Normocephalic. NECK: Supple. CHEST: Crackles bilateral. HEART: S1 and S2. ABDOMEN: Soft. Bowel sounds present. EXTREMITIES: No edema. SKIN: No rash. IMPRESSION: Low temperature, clinically seems to be stable or her cultures are negative. Her white count is normal. The patient is doing good. Can be discharged home from Infectious Disease point of view. Followup in 3 weeks. The patient is infectious for 10 days. Discussed with the patient answered all the questions. MD HANG Ortiz/EVELINA /[id number]
--- NOTE | 2020-05-10 13:39 | Progress Note ---
DATE: SUBJECTIVE: The patient is complaining of decreased appetite. She does not have dyspnea or cough. PHYSICAL EXAMINATION: VITAL SIGNS: The blood pressure is 142/53, saturation is 100%, and the pulse is 62. Respiratory rate is 18. HEENT: Shows no facial swelling or erythema. LYMPHATIC: Shows no submandibular, cervical, or supraclavicular adenopathy. CARDIAC: Reveals regular rate and rhythm with normal S1 and S2. LUNGS: Auscultation of lungs reveals rhonchorous breath sounds bilaterally. There is no wheezing. ABDOMEN: Soft and nontender. There is no rebound or guarding. EXTREMITIES: Show no leg edema or calf tenderness. IMPRESSION: 1. Viral pneumonia and COVID-19 infection. 2. Decreased appetite. 3. Constipation. PLAN: 1. Continue antiemetics as needed. 2. Physical therapy. 3. Stable for discharge. MD KACIE Babin/EVELINA /[id number]
--- NOTE | 2020-05-10 14:46 | NUR ---
aware Temperature on 05/09/20 at 2300 was 100.2. No new orders
--- NOTE | 2020-05-10 18:54 | NUR ---
Report given to oncoming nurse of patient's status. Resting in bed. No s/s of acute distress noted. Side rails upx2, call light within reach.
--- NOTE | 2020-05-10 19:00 | NUR ---
Resumed care of patient. Patient awake and resting in bed, respirations even and unlabored on room air, no s/s of distress at this time. All safety measures in place.
--- NOTE | 2020-05-10 19:14 | NUR ---
PROGRESS NOTE The patient was doing fine at the time of my visit. She lives alone. She will be discharged in the morning. She has been no distress. Stable vital signs. HEENT: No gross abnormalities Neck: Supple no JVD Lungs: Clear to auscultation Heart: Regular rate and rhythm, no murmurs no gallops Abdomen: Soft non tender, no guarding. Extremities: No edema Neurologic: Alert oriented 3, no focal weakness. Psychiatrist: Normal mood, normal judgment. Skin: No rashes Assessment: Multifocal pneumonia COVID-19 viral infection Generalized weakness Dizziness Viral gastroenteritis Anemia, unspecified Recently treated UTI History of neck pain Positive Covid 19 Plan of care: 05/05/2020 Admitted the patient for observation Follow-up labs. Consult ID. Inflammatory markers 05/06/2020 Continue present care. Keep patient hydrated. Have patient ambulate. ID evaluation noted. Stable from the standpoint. Reevaluate in a.m. 05/07/2020 Continue hydration. PT OT evaluation. Monitor O2 with ambulation. 05/08/2020 It was felt that she was relatively stable however follow-up imaging studies did reveal faint bilateral hazy opacities which have slightly worsened. Continue PT/OT, monitor O2 sats, Follow-up labs. Hydration as needed. Continue antiemetics. Patient condition discussed with ID Dr. Holt. Discussed with nursing staff. 05/09/2020 Stable vital signs, stable H&H. We will continue hydration, antiemetics 05/10/2020. Patient lives alone due to weather patient will be discharged in a.m.
--- NOTE | 2020-05-10 19:29 | NUR ---
Dr. Melara at bedside to inform patient of discharge. However, patient states that she drove herself to the hospital. MD advised patient against driving herself home at this time d/t safety concerns and bad weather conditions. MD and patient agreed that patient will be discharged in the morning when her daughter can come pick her up.
[2020-05-10] MEDS: TIZANIDINE HCL 4 MG TAB PO SCH (20:21)
[2020-05-10] MEDS: CEFTRIAXONE SOD 1 GM/NS 50 ML 50 ML IV SCH (20:21)
[2020-05-11] VITALS: BP 97/50
[2020-05-11 04:00] VITALS: BP 118/62
[2020-05-11] MEDS: MULTIVITAMINS/MINERALS TAB PO SCH (07:53)
[2020-05-11] MEDS: ENOXAPARIN SOD INJ 40 MG/0.4 ML SYR SC SCH (07:53)
[2020-05-11] MEDS: ACETAMINOPHEN 325 MG TAB PO PRN (07:53)
[2020-05-11] MEDS: CEFUROXIME AXETIL 250 MG TAB PO SCH (07:53)
[2020-05-11 08:00] VITALS: BP 127/51
[2020-05-11 08:01] VITALS: BP 127/51
--- NOTE | 2020-05-11 08:40 | NUR ---
Left and Right FA IV discontinued. No signs of infiltration noted. 2x2 gauze and tape placed. Taken via wheelchair to personal car. AAOX4 to time,person, place, situation. Respirations even and unlabored. Discharge instructions and all personal belongings taken with patient. No rx available.
== END 2020-05-11 08:40 | disposition home or self-care (01) | DRG 177 ==
LOC: ER 10:45 → ERHOLD 12:18 → MED/SURG3 14:30 → IMCU 05-07 21:46 → OBSVTOIN 05-08 19:37
PROVIDERS: ADMIT Internal Medicine; ATTEND Internal Medicine
DX: U07.1 COVID-19 (principal); J12.89 Other viral pneumonia; A08.4 Viral intestinal infection, unspecified; D64.9 Anemia, unspecified; K59.00 Constipation, unspecified
CPT/HCPCS: 36415; 71045; 80048; 80053; 81001; 82550; 82553; 82728; 83605; 83880; 84484; 85025; 85379; 85610; 86140; 87040; 97139; 99284; G0378; J0456; J0696; J1650; J2405; J7030; J7121; U0002

== ENCOUNTER 2021-09-01 17:02 | Emergency (ER) | payer MEDICARE ==
[~2021-09-01] VITALS: Ht 154.9 cm; Wt 55.8 kg
[~2021-09-01 17:02] MED LIST changes: +AMOXICILLIN250 MG PO; +CEFUROXIME500 MG PO; +MULTI-VITAMIN1 EACH PO; +TIZANIDINE HCL4 MG PO; +TYLENOL # 31 EA PO
[2021-09-01] MEDS ORDERED: GOLYTELY SOLU4000 M1 PO (19:40)
== END 2021-09-01 20:19 | disposition home or self-care (01) ==
LOC: ER 18:02
DX: K59.00 Constipation, unspecified (principal)
CPT/HCPCS: 74018; 99283